=== PATIENT | female | born 1960 ===

== ENCOUNTER 2021-01-04 09:47 | Outpatient (REF) | payer BC, SELFPAY ==
--- NOTE | ~2021-01-04 | XR_ITS ---
EXAMINATION: CHEST AND SINUS EXAM CLINICAL INFORMATION: Difficulty breathing COMPARISON: None TECHNIQUE: Sinuses 4 views. Chest 2 views. FINDINGS: CHEST: The lungs are well-expanded and clear of acute process. Heart size and pulmonary vascularity is normal. There is mildly was scoliosis of dorsal spine. No lytic process. SINUSES: There is mild mucoperiosteal thickening bilateral maxillary and complete opacification of bilateral frontal sinuses. Rest of the paranasal sinuses are well aerated and clear. The mastoid sinuses are well-expanded expanded and clear. XR/XR sinus min 3V IMPRESSION: Unremarkable chest exam. Chronic bilateral maxillary and ethmoid sinus inflammatory changes.
--- NOTE | ~2021-01-04 | XR_ITS ---
EXAMINATION: CHEST AND SINUS EXAM CLINICAL INFORMATION: Difficulty breathing COMPARISON: None TECHNIQUE: Sinuses 4 views. Chest 2 views. FINDINGS: CHEST: The lungs are well-expanded and clear of acute process. Heart size and pulmonary vascularity is normal. There is mildly was scoliosis of dorsal spine. No lytic process. SINUSES: There is mild mucoperiosteal thickening bilateral maxillary and complete opacification of bilateral frontal sinuses. Rest of the paranasal sinuses are well aerated and clear. The mastoid sinuses are well-expanded expanded and clear. XR/XR chest 2V IMPRESSION: Unremarkable chest exam. Chronic bilateral maxillary and ethmoid sinus inflammatory changes.
== END 2021-01-04 09:48 | disposition home or self-care (01) ==
LOC: HO.HMGCX 09:47
PROVIDERS: PCP Internal Medicine; Visit Provider Internal Medicine
DX: R05 Cough (principal); R51.9 Headache, unspecified; U07.1 COVID-19
CPT/HCPCS: 70220; 71046

== ENCOUNTER 2021-02-13 09:47 | Outpatient (REF) | payer BC, SELFPAY ==
[2021-02-13 11:16] LABS: Glucose Urine UA NEG (NEG); Leukocyte Esterase Urine NEG (NEG); Nitrite Urine NEG (NEG); PH 6.5 (5.0-8.0); Urine Blood 1+ (NEG); Urine Ketones NEG (NEG); Urine Protein NEG (NEG-TRACE)
[2021-02-13 11:18] LABS: Appearance Urine CLEAR; Color Urine YELLOW
[2021-02-13 11:31] LABS: RBC Urine 0-2 /HPF (0); Squamous Epithelial Cell Urine TRACE /LPF; WBC Urine 0 /HPF (0-4)
[2021-02-13 11:35] LABS: Hematocrit 42.4 % (37-47); Hemoglobin 13.4 g/dl (12.0-16.0); Mean Corpuscular HGB Conc 31.6 g/dl (31.0-35.0); Mean Corpuscular Hemoglobin 29.1 pg (27.0-33.0); Mean Corpuscular Volume 92.2 fL (80-98); Mean Platelet Volume 9.7 fL (9.4-12.3); Platelet Count 279 X10*3/uL (160-400); Red Cell Distribution Width 13.3 % (11.0-16.0); White Blood Count 6.6 X10*3/uL (4.8-10.8)
[2021-02-13 12:06] LABS: Alanine Aminotransferase 14 U/L (0-31); Albumin Level 4.3 g/dL (3.5-5.0); Alkaline Phosphatase 77 U/L (39-117); Anion Gap 14 (12-20); Aspartate Amino Transferase 18 U/L (5-31); Bilirubin Total 0.6 mg/dL (0.0-1.0); Blood Urea Nitrogen 9 mg/dL (9-16); Calcium 9.3 mg/dL (8.4-10.2); Carbon Dioxide 28 mmol/L (22-29); Chloride 104 mmol/L (96-108); Cholesterol 197 mg/dL; Estimated Glomerular Filt Rate > 60; Glucose Fasting 92 mg/dL (60-99); HDL Cholesterol 73 mg/dL; LDL Cholesterol Calculated 87 mg/dl; Potassium 3.9 mmol/L (3.3-5.1); Sodium 142 mmol/L (135-145); Total Protein 7.2 g/dL (6.5-8.0); Triglycerides 189 mg/dL
[2021-02-13 12:30] LABS: TSH reflex Free T4 0.07 uIU/mL (0.32-4.0); Vitamin D 25-OH Total 34.2 ng/mL (>30)
[2021-02-13 13:08] LABS: Free T4 (Free Thyroxine) 1.38 ng/dL (0.71-1.85)
== END 2021-02-13 09:48 | disposition home or self-care (01) ==
LOC: HO.HMGCLDS 09:47
PROVIDERS: PCP Internal Medicine; Visit Provider Internal Medicine
DX: Z00.00 Encounter for general adult medical examination without abnormal findings (principal); J45.909 Unspecified asthma, uncomplicated; M06.9 Rheumatoid arthritis, unspecified
CPT/HCPCS: 36415; 80053; 80061; 81001; 82306; 84439; 84443; 85027

== ENCOUNTER 2021-10-08 14:20 | Outpatient (REF) | payer BC, SELFPAY ==
--- NOTE | ~2021-10-08 | US_ITS ---
EXAMINATION: US VENOUS ULTRASOUND WITH DOPPLER LOWER EXTREMITY, LEFT CLINICAL INFORMATION: Swelling of left lower extremity. COMPARISON: None TECHNIQUE: Ultrasound of the deep veins is performed from the hip to the calf with compression sonography and color and pulse Doppler assessment. Spectral analysis with color-flow imaging is performed. FINDINGS: There is normal venous compression and respiratory variation and augmented flow. The visualized common femoral vein, superficial femoral vein, profunda femoral vein, popliteal vein, and the trifurcation region shows no evidence of deep venous thrombosis. There is no significant popliteal fossa cyst. Corresponding to the site of pain, burning sensation involving the anterior, lateral proximal left calf, no underlying sonographic abnormalities identified. If the patient's symptoms persist, followup ultrasound in 5 days 7 days might be of value to exclude proximal propagation from a non-visualized calf vein. US/US venous duplex LE IMPRESSION: No DVT demonstrated in the left lower extremity.
== END 2021-10-08 14:21 | disposition home or self-care (01) ==
LOC: HO.HMGCX 14:20
PROVIDERS: PCP Internal Medicine; Visit Provider Internal Medicine
DX: M79.89 Other specified soft tissue disorders (principal)
CPT/HCPCS: 93971

== ENCOUNTER → 2022-01-06 09:52 | Outpatient (BNVA) | payer BC, SELFPAY | PROVIDERS: PCP Internal Medicine; Referring Provider Internal Medicine; Visit Provider Physician Assistant | DX: Z13.89 Encounter for screening for other disorder (principal) ==

== ENCOUNTER 2022-02-10 09:22 | Outpatient (REF) | payer BC, SELFPAY ==
[2022-02-10 11:21] LABS: Hematocrit 41.8 % (37.0-47.0); Hemoglobin 13.4 g/dl (12.0-16.0); Mean Corpuscular HGB Conc 32.1 g/dl (31.0-35.0); Mean Corpuscular Hemoglobin 30.2 pg (27.0-33.0); Mean Corpuscular Volume 94.1 fL (80.0-98.0); Mean Platelet Volume 9.7 fL (9.4-12.3); Platelet Count 236 X10*3/uL (160-400); Red Blood Count 4.44 X10*6/uL (4.20-5.50); Red Cell Distribution Width 13.3 % (11.0-16.0); White Blood Count 5.6 X10*3/uL (4.8-10.8)
[2022-02-10 11:21] LABS: Appearance Urine HAZY; Color Urine YELLOW; Glucose Urine UA NEG (NEG); Leukocyte Esterase Urine TRACE (NEG); Nitrite Urine NEG (NEG); PH 6.5 (5.0-8.0); Specific Gravity - Urine 1.015 (1.005-1.025); Urine Blood 2+ (NEG); Urine Ketones NEG (NEG); Urine Protein NEG (NEG-TRACE)
[2022-02-10 11:39] LABS: Renal Epithelial Cells Urine 1+ /LPF; Squamous Epithelial Cell Urine 1+ /LPF; WBC Urine 0-2 /HPF (0-4)
[2022-02-10 11:57] LABS: Alanine Aminotransferase 27 U/L (0-31); Alkaline Phosphatase 73 U/L (39-117); Anion Gap 11 (12-20); Aspartate Amino Transferase 24 U/L (5-31); Bilirubin Total 0.5 mg/dL (0.0-1.0); Blood Urea Nitrogen 12 mg/dL (9-16); Calcium 9.3 mg/dL (8.4-10.2); Carbon Dioxide 28 mmol/L (22-29); Chloride 106 mmol/L (96-108); Cholesterol 172 mg/dL; Estimated Glomerular Filt Rate > 60; Glucose Fasting 90 mg/dL (60-99); HDL Cholesterol 75 mg/dL; LDL Cholesterol Calculated 83 mg/dl; Potassium 4.2 mmol/L (3.3-5.1); Sodium 141 mmol/L (135-145); Total Protein 6.6 g/dL (6.5-8.0); Triglycerides 70 mg/dL
[2022-02-10 12:00] LABS: TSH reflex Free T4 0.03 uIU/mL (0.32-4.0)
[2022-02-10 13:10] LABS: Free T4 (Free Thyroxine) 1.51 ng/dL (0.71-1.85)
== END 2022-02-10 09:23 | disposition home or self-care (01) ==
LOC: HO.HMGCLDS 09:22
PROVIDERS: PCP Internal Medicine; Visit Provider Internal Medicine
DX: Z00.00 Encounter for general adult medical examination without abnormal findings (principal); E03.9 Hypothyroidism, unspecified; E78.5 Hyperlipidemia, unspecified
CPT/HCPCS: 36415; 80053; 80061; 81001; 82306; 84439; 84443; 85027

== ENCOUNTER 2022-04-29 09:02 | Outpatient (REF) | payer OTHER, SELFPAY ==
[2022-04-29 11:52] LABS: Appearance Urine CLEAR; Color Urine YELLOW; Glucose Urine UA NEG (NEG); Leukocyte Esterase Urine 2+ (NEG); Nitrite Urine NEG (NEG); Urine Blood 1+ (NEG); Urine Ketones NEG (NEG); Urine Protein NEG (NEG-TRACE)
[2022-04-29 12:21] LABS: Bacteria Urine 1+ /LPF; Squamous Epithelial Cell Urine TRACE /LPF
[2022-04-29 12:22] LABS: TSH reflex Free T4 0.25 uIU/mL (0.32-4.0)
[2022-04-29 13:27] LABS: Free T4 (Free Thyroxine) 1.23 ng/dL (0.71-1.85)
== END 2022-04-29 09:03 | disposition home or self-care (01) ==
LOC: HO.HMGCLDS 09:02
PROVIDERS: PCP Internal Medicine; Visit Provider Internal Medicine
DX: E03.9 Hypothyroidism, unspecified (principal)
CPT/HCPCS: 36415; 81001; 84439; 84443

== ENCOUNTER 2022-07-29 12:07 | Observation (INO) | payer OTHER, SELFPAY ==
--- NOTE | ~2022-07-29 | US_ITS ---
EXAMINATION: US VENOUS ULTRASOUND WITH DOPPLER LOWER EXTREMITY, LEFT CLINICAL INFORMATION: Swelling and pain. Rule out DVT. COMPARISON: Left lower extremity venous ultrasound 10/08/2021 TECHNIQUE: Ultrasound of the deep veins is performed from the hip to the calf with compression sonography and color and pulse Doppler assessment. Spectral analysis with color-flow imaging is performed. FINDINGS: There is normal venous compression and respiratory variation and augmented flow. The visualized common femoral vein, superficial femoral vein, profunda femoral vein, popliteal vein, and the trifurcation region shows no evidence of deep venous thrombosis. There is no significant popliteal fossa cyst. If the patient's symptoms persist, followup ultrasound in 5 days 7 days might be of value to exclude proximal propagation from a non-visualized calf vein. US/US venous duplex LE IMPRESSION: No DVT demonstrated in the left lower extremity.
--- NOTE | ~2022-07-29 | CT_ITS ---
EXAMINATION: CT ANGIOGRAM OF THE CHEST WITH AND WITHOUT CONTRAST (CT PULMONARY ANGIOGRAM FOR PE) CLINICAL INFORMATION: Reason for Exam Chest pain, SOB, DANIEL, LLE swelling, rule out PE COMPARISON: Chest x-ray from earlier today TECHNIQUE: Prior to contrast administration, noncontrast localization images were obtained. Subsequently, multidetector volumetric imaging was performed from the thoracic inlet to below the diaphragms following the administration of 75 mL Omnipaque 350 intravenous contrast. No contrast reaction reported Sagittal, coronal, and MIP oblique sagittal reformatted images were obtained on the CT workstation, uploaded to PACS, and reviewed. This CT examination was performed using dose optimization techniques as appropriate, variously including the following: *Automated exposure control *Adjustment of mA and/or kV according to patient size (this includes techniques or standardized protocols for targeted exams where dose is matched to indication/reason for exam; i.e. extremities or head) *Use of iterative reconstruction technique Total exam dose-length product 183 mGy-cm FINDINGS: QUALITY OF STUDY/CONTRAST BOLUS: Satisfactory. PULMONARY ARTERIES: No central or segmental pulmonary emboli. THORACIC AORTA: No aneurysm or dissection. LUNG: There is dependent atelectasis in the bilateral lower lobes. No additional region of consolidation. There is a 3 mm right upper lobe nodule on image 91/513 laterally. PLEURA: No pleural effusion or pneumothorax. MEDIASTINUM: Patient appears to be status post thyroidectomy. There are subcentimeter mediastinal lymph nodes within the range of normal variation. Cardiac size is within normal limits; no pericardial effusion. No evidence of septal bowing or right heart strain. CHEST WALL/AXILLA: No axillary or internal mammary lymphadenopathy. OSSEOUS STRUCTURES: No acute or suspicious osseous abnormality. UPPER ABDOMEN: Unremarkable. No reflux of contrast into the hepatic veins to suggest elevated right heart pressures. CT/CT angio chest PE protocol IMPRESSION: 1. No pulmonary embolus identified. 2. Right upper lobe 3 mm lung nodule. According to the UPDATED 2017 Fleischner Society recommendations, the advised follow-up imaging for solid nodules < 6 mm is: LOW RISK PATIENT: No routine follow-up. HIGH RISK PATIENT: Optional CT at 12 months. VTE: negative
--- NOTE | ~2022-07-29 | NM_ITS ---
Lexiscan Myocardial perfusion study Indication: Chest pain, assess for coronary disease and ischemia Technique: The patient was brought in for a Lexiscan perfusion study on 07/30/2022 and was injected 0.4 mg of Lexiscan intravenously. Within a minute of this injection 25 mCi of sestamibi was given intravenously. Images were obtained using the SPECT gamma camera interlaced with the gating device. Images were obtained in supine position. Resting perfusion study was performed on 07/29/2022. Patient was administered 25 mCi of sestamibi intravenously at rest. Images were then obtained in supine position. Total DLP 68mGy-cm. Images were processed with the software and compared side to side in short axis, horizontal long axis and vertical long axis views. Findings: Raw acquisition reviewed. The stress perfusion study showed no significant perfusion abnormality. Both uncorrected as well as CT attenuation corrected images were reviewed. The gated study shows normal LV systolic function with calculated LVEF of 57%. LV cavity is normal in size. The gated study shows normal wall thickening and contraction of segments. Resting study shows no significant perfusion abnormality. Gating at rest reveals normal wall motion with ejection fraction at 75%. The findings are consistent with no clear reversible or fixed perfusion defects. NM/NM milo perf SPECT rest & str Impression: 1. Myocardial perfusion imaging study shows likely normal myocardial perfusion. No clear evidence of any ischemia or infarction. 2. Gated LVEF is 57% during stress and 74% during rest. 3. Transient ischemic dilatation not present. EKG component of the test reported separately.
--- NOTE | ~2022-07-29 | XR_ITS ---
EXAMINATION: XR CHEST CLINICAL INFORMATION: Shortness of breath COMPARISON: Chest x-ray 01/04/2021 TECHNIQUE: Frontal view of the chest was obtained. FINDINGS: The lungs are clear. No airspace consolidation, pleural effusion, or pneumothorax. The cardiomediastinal silhouette is within normal limits. Slight prominence of the pulmonary vascularity. No evidence of pulmonary edema. No acute osseous injury. Multiple surgical clips project over the lower neck. XR/XR chest 1V IMPRESSION: No acute pulmonary process.
[2022-07-29 12:26] VITALS: BP 131/59; PULSE 103; RESP 16; TEMP 36.6; O2SAT 97; BMI 19.8
--- NOTE | 2022-07-29 12:32 | ECG_ITS ---
Test Reason : SOB Blood Pressure : / mmHG Vent. Rate : 080 BPM Atrial Rate : 080 BPM P-R Int : 148 ms QRS Dur : 088 ms QT Int : 386 ms P-R-T Axes : 061 051 060 degrees QTc Int : 445 ms Normal sinus rhythm Normal ECG No previous ECGs available Referred By: Gita Trinidad Electronically Signed By:CARLITOS JANE
[2022-07-29 12:57] LABS: MANUAL DIFF FLAG NO
[2022-07-29 13:02] LABS: Basophils Percent Auto 0.5 % (0-2); Eosinophils Absolute Auto 0.4 X10*3/uL (0.0-0.4); Eosinophils Percent Auto 6.9 % (0-4); Hematocrit 41.5 % (37.0-47.0); Hemoglobin 13.4 g/dl (12.0-16.0); Imm Gran Abs Auto 0.02 X10*3/uL (0.00-0.03); Imm Gran Pct Auto 0.3 % (0.0-0.4); Lymphocytes Absolute Auto 1.7 X10*3/uL (1.2-4.9); Lymphocytes Percent Auto 27.2 % (20-40); Mean Corpuscular HGB Conc 32.3 g/dl (31.0-35.0); Mean Corpuscular Hemoglobin 29.9 pg (27.0-33.0); Mean Corpuscular Volume 92.6 fL (80.0-98.0); Mean Platelet Volume 9.1 fL (9.4-12.3); Monocytes Absolute Auto 0.7 X10*3/uL (0.1-1.2); Monocytes Percent Auto 11.2 % (2-11); Neutrophils Absolute Auto 3.4 x10*3/uL (2.0-8.3); Neutrophils Percent Auto 53.9 % (45-73); Platelet Count 227 X10*3/uL (160-400); Red Blood Count 4.48 X10*6/uL (4.20-5.50); Red Cell Distribution Width 13.6 % (11.0-16.0); White Blood Count 6.3 X10*3/uL (4.8-10.8)
[2022-07-29 13:18] LABS: Anion Gap 13 (12-20); Blood Urea Nitrogen 11 mg/dL (9-16); Calcium 9.6 mg/dL (8.4-10.2); Carbon Dioxide 28 mmol/L (22-29); Chloride 107 mmol/L (96-108); Creatinine Clr Calc Pharmacy 81.9; Estimated Glomerular Filt Rate > 60; Glucose Random 105 mg/dL (60-115); Sodium 144 mmol/L (135-145)
--- OUTSIDE RECORDS SUMMARY | 2022-07-29 21:05 | XMS_ITS | Continuity of Care Document ---
:1960 Author Organization [facility] Address [address] [place] [address]- Care Team Providers Name Role Phone Tiffanie Hernandez MD [id number] [address] Discharge Disposition: A-Transfer VNA/Home Health Attending Physician: Jose Alfredo Osorio MD Admitting Physician: Radha Pepper MD Referring Physician: Not on Staff, Referring MD Allergies, Adverse Reactions, Alerts Substance Reaction Severity Status aspirin anaphylaxis Active Motrin anaphylaxis Active Advil anaphylaxis Active NSAIDs Active Immunizations Not Given Vaccine Date Status Refusal Reason pneumococcal 23-valent vaccine 11/27/20 Not Given P atient Refuses pneumococcal 23-valent vaccine 05/15/19 Not Given P atient Refuses pneumococcal 23-valent vaccine 04/14/16 Not Given P atient Refuses Medications alendronate 70 mg oral tablet 1 tablet = 70 mg, By Mouth, Every week, # 4 tablet, 0 Refills, Maintenance, 06/05/20 22:34:00 EDT, Tablet Start Date: 06/05/20 Status: OrderedCitracal Maximum + Vitamin D Tablet 2 tablet, By Mouth, Daily in AM, 0 Refills, Maintenance, 03/17/13 16:42:43 EDT Start Date: 03/17/13 Status: Ordereddexamethasone 4 mg oral tablet 1.5 tablet = 6 mg, By Mouth, Daily in AM, for 5 days, # 7.5 tablet, 0 Refills, Acute 12/05/20 11:20:00 EST, 11/30/20 11:20:00 EST, Tablet, [facility]/pharmacy #[id number], Partial fill upon patient request if the prescription is for a schedule II opioid drug., 163... Start Date: 11/30/20 Stop Date: 12/05/20 Status: OrderedDulera 200 mcg-5 mcg/inh inhalation aerosol 2 puffs, Inhalation, 2 times a day, 0 Refills, Maintenance, 04/14/16 10:10:36, Aerosol Start Date: 04/14/16 Status: Orderedfluticasone 50 mcg/inh nasal spray 1 sprays, Nares, Both, Daily in AM, 0 Refills, Maintenance, 06/06/20 5:46:00 EDT, [place] Start Date: 06/06/20 Status: Orderedfolic acid 1 mg oral tablet 1 mg, 1, tablet, By Mouth, Daily, # 30 tablet, Refills 0, Maintenance, 06/05/20 22:33:00 EDT Start Date: 06/05/20 Status: OrderedHumira Pen 40 mg/0.4 mL subcutaneous kit 0 Refills, Maintenance, 06/06/20 8:24:00 EDT Start Date: 06/06/20 Status: Orderedlevothyroxine 0.112 mg oral tablet 1 tablet = 112 mcg, By Mouth, Daily, # 90 tablet, 3 Refills, Maintenance, 12/15/17 9:41:20, Tablet Start Date: 12/15/17 Status: Orderedmethotrexate 2.5 mg oral tablet 1 tablet = 2.5 mg, By Mouth, Every week, # 4 tablet, 0 Refills, Maintenance, 05/14/19 22:06:36 EDT, Tablet Start Date: 05/14/19 Status: OrderedProAir HFA 90 mcg/inh inhalation aerosol with adapter 2 puffs, Inhalation, 4 times a day, PRN Wheezing/Shortness of Breath, 0 Refills, Maintenance, 12/29/12 8:41:54 Start Date: 12/29/12 Status: OrderedProtonix 40 mg oral delayed release tablet 1 tablet = 40 mg, By Mouth, Daily, # 30 tablet, 0 Refills, Maintenance, 06/06/20 13:23:00 EDT, EC Tablet, 162.56, cm, 06/06/20 11:10:00 EDT, Height, 54, kg, 06/06/20 5:22:00 EDT, Dry Weight Start Date: 06/06/20 Status: Orderedrosuvastatin 20 mg oral tablet 1 tablet = 20 mg, By Mouth, Every other day, 0 Refills, Maintenance, 05/14/19 22:04:55 EDT Start Date: 05/14/19 Status: Ordered Problem List Condition Effective Dates Status Health Status Informant Hx of papillary thyroid Active carcinoma(Confirmed) Nodular goiter(Confirmed) Active Results Radiology Reports Exam Date Time Procedure Performing Provider Status 11/26/20 1:10 PM Chest Portable Leda Hutchins; Brea (Verified) Notes:(Chest Portable) Reason For Exam: Shortness of BreathRESULT: Chest Portable Examination: Portable chest performed on 11/26/2020. History: Recent COVID diagnosis. Increased shortness of breath. Findings: A frontal view of the chest is compared to a prior study dated 06/06/2020. The cardiac silhouette is within normal limits for size. Bilateral airspace opacities are noted, right lower lobe greater than left. No pleural effusions are seen. The osseous structures are intact. IMPRESSION: Bilateral airspace opacities consistent with infection, likely related to atypical viral given the clinical history. WSN: [id number] Ordering Physician: Niki Cisse Dictated By: Michelle Guevara MD Dictated Date/Time: 11/26/20 1:14 pm Reviewed By: Michelle Guevara MD Signed By: Michelle Guevara MD Signed Date/Time: 11/26/20 1:14 pm Transcribed By: KIARA Transcribed Date/Time: 11/26/20 1:12 pm Vital Signs Most recent to oldest [Reference 1 2 3 Range]: Height 163 cm 163 cm 163 cm (11/30/20 7:00 AM) (11/30/20 4:57 AM) (11/30/20 12:35 AM) Weight 51.4 kg (11/26/20 5:30 PM) Oxygen Saturation [94-100 %] 97 % 96 % 96 % (11/30/20 7:00 AM) (11/30/20 12:35 AM) (11/29/20 8:08 PM) Pulse Rate [55-90 bpm] 76 bpm 68 bpm 67 bpm (11/30/20 7:00 AM) (11/30/20 4:00 AM) (11/30/20 12:35 AM) Body Mass Index [18.5-24.99] 19.35 (11/26/20 5:30 PM) Blood Pressure [90-138/55-84 mm 106/66 mm Hg 136/69 mm Hg 107/57 mm Hg Hg] (11/30/20 7:00 AM) (11/30/20 4:00 AM) (11/30/20 12:35 AM) Respiratory Rate [16-30 br/min] 19 br/min 18 br/min 18 br/min (11/30/20 7:00 AM) (11/30/20 4:00 AM) (11/30/20 12:35 AM) Temperature [96.8-100.4 DegF] 97.7 DegF 97.5 DegF 97 .5 DegF (11/30/20 7:00 AM) (11/30/20 4:00 AM) (11/30/20 12:35 AM) Liters per Minute 4 L/min 4 L/min 4 L/min (11/30/20 4:00 AM) (11/30/20 12:00 AM) (11/29/20 8:00 PM) Mode of Delivery (Oxygen) Room air Nasal cannula Nasal cannula (11/30/20 7:00 AM) (11/30/20 4:00 AM) (11/30/20 12:00 AM) Blood pressure sites Arm, right Arm, right Arm, right (11/30/20 7:00 AM) (11/30/20 4:00 AM) (11/30/20 12:35 AM) Temperature Route Oral Oral Oral (11/30/20 7:00 AM) (11/30/20 4:00 AM) (11/30/20 12:35 AM) Dry Weight 51.4 kg (11/26/20 5:30 PM)
--- OUTSIDE RECORDS SUMMARY | 2022-07-29 21:05 | XMS_ITS | Continuity of Care Document ---
:1960 Author Organization [facility] Address [address] [place] [address]- Care Team Providers Name Role Phone Tiffanie Hernandez MD Primary Care Physician Encounter [facility] Date(s): 11/13/19 - 11/23/19 [facility] [address] [place] [address]- [facility] Attending Physician: Mario Melvin Admitting Physician: Mario Melvin Referring Physician: Mario Melvin Referring Physician: Nasrin Hassan Allergies, Adverse Reactions, Alerts Substance Reaction Severity Status aspirin anaphylaxis Active Motrin anaphylaxis Active Advil anaphylaxis Active Immunizations Not Given Vaccine Date Status Refusal Reason pneumococcal 23-valent vaccine 05/15/19 Not Given P atient Refuses pneumococcal 23-valent vaccine 04/14/16 Not Given P atient Refuses Medications [place]-D 1 tablet, By Mouth, Daily, 0 Refills, Maintenance Start Date: 01/28/13 Status: OrderedCitracal Maximum + Vitamin D Tablet 2 tablet, By Mouth, Daily in AM, 0 Refills, Maintenance, 03/17/13 16:42:43 EDT Start Date: 03/17/13 Status: OrderedDulera 200 mcg-5 mcg/inh inhalation aerosol 2 puffs, Inhalation, 2 times a day, 0 Refills, Maintenance, 04/14/16 10:10:36, Aerosol Start Date: 04/14/16 Status: OrderedHumira = 40 mg, Subcutaneous Infusion, Once, 0 Refills, Maintenance, 05/14/19 22:06:12 EDT Start Date: 05/14/19 Status: Orderedlevothyroxine 0.112 mg oral tablet 1 tablet = 112 mcg, By Mouth, Daily, # 90 tablet, 3 Refills, Maintenance, 12/15/17 9:41:20, Tablet Start Date: 12/15/17 Status: Orderedmethotrexate 2.5 mg oral tablet 1 tablet = 2.5 mg, By Mouth, Every week, # 4 tablet, 0 Refills, Maintenance, 05/14/19 22:06:36 EDT, Tablet Start Date: 05/14/19 Status: OrderedNasonex 50 mcg/inh nasal spray 2 sprays, Nares, Both, 2 times a day, PRN for allergy symptoms, # 17 Gm, 0 Refills, Maintenance, [place] Start Date: 02/22/13 Status: OrderedProAir HFA 90 mcg/inh inhalation aerosol with adapter 2 puffs, Inhalation, 4 times a day, PRN Wheezing/Shortness of Breath, 0 Refills, Maintenance, 12/29/12 8:41:54 Start Date: 12/29/12 Status: Orderedrosuvastatin 20 mg oral tablet 1 tablet = 20 mg, By Mouth, Every other day, 0 Refills, Maintenance, 05/14/19 22:04:55 EDT Start Date: 05/14/19 Status: OrderedZithromax Z-Eliazar 250 mg oral tablet 1 pack/packet, By Mouth, Once, as directed on package labeling, # 6 tablet, 0 Refills, Soft Stop, 10/04/17 11:47:26, Tablet Start Date: 10/04/17 Status: Ordered Problem List Condition Effective Dates Status Health Status Informant Hx of papillary thyroid Active carcinoma(Confirmed) Nodular goiter(Confirmed) Active
--- OUTSIDE RECORDS SUMMARY | 2022-07-29 21:05 | XMS_ITS | Continuity of Care Document ---
:1960 Author Organization [facility] Address [address] [place] [phone]- Care Team Providers Name Role Phone Tiffanie Hernandez MD Primary Care Physician Encounter [facility] R [id number] Date(s): 06/05/20 - 06/06/[address] [address]- [facility] Encounter Diagnosis ACS (acute coronary syndrome) (Final) - 06/06/20 Discharge Disposition: A-D/C Home Attending Physician: Belinda Smith MD Admitting Physician: Luis Johnson MD Referring Physician: Not on Staff, Referring [...] AM, 0 Refills, Maintenance, 06/06/20 5:46:00 EDT, [place] Start Date: 06/06/20 Status: Orderedfolic acid 1 [...] Exam Date Time Procedure Performing Provider Status 06/06/20 12:45 AM Chest 2 Views Frontal and Lat Morelia Kincaid; Auth (Verified) Notes:(Chest 2 Views Frontal and Lat) Reason For Exam: Chest Pain;Other:RESULT: Chest 2 Views Frontal and Lat Chest 2 Views Frontal and Lat HPI: Chest pain x 30 min- reports pain and pressure, also has had SOB x 2 days- has asthma. INDICATION: Chest Pain. COMPARISON: Multiple chest radiographs, most recent 05/15/2019. FINDINGS: LINES AND TUBES: None. LUNGS AND PLEURA: Mild left basilar atelectasis. Normal pulmonary vascularity. No pleural effusion. No pneumothorax. HEART, MEDIASTINUM AND PATRICIA: Heart is normal in size. Normal mediastinal and hilar contour. BONES AND SOFT TISSUES: No acute abnormality. IMPRESSION: No acute abnormality. I have personally reviewed the images and I agree with this report. WSN: [id number] Ordering Physician: Wolfgang Quinn MD Dictated By: Erick Moore MD Dictated Date/Time: 06/06/20 8:21 am Reviewed By: Jalen Sanchez MD Signed By: Jalen Sanchez MD Signed Date/Time: 06/06/20 8:26 am Transcribed By: KIARA Transcribed Date/Time: 06/06/20 8:12 am Vital Signs Most recent to oldest 1 2 3 [Reference Range]: Height 162.56 cm 162.56 cm 162.56 cm (06/06/20 11:10 AM) (06/06/20 7:54 AM) (06/06/20 5: 22 AM) Weight 54 kg 53.5 kg 54 kg (06/06/20 5:22 AM) (06/06/20 5:20 AM) (06/06/20 4:1 6 AM) Oxygen Saturation [94-100 96 % 96 % 95 % %] (06/06/20 11:10 AM) (06/06/20 7:54 AM) (06/06/20 5: 20 AM) Pulse Rate [55-90 bpm] 70 bpm 72 bpm 74 bpm (06/06/20 11:10 AM) (06/06/20 7:54 AM) (06/06/20 5: 20 AM) Body Mass Index 20.43 20.25 20.43 [18.5-24.99] (06/06/20 5:22 AM) (06/06/20 5:20 AM) (06/06/20 4:1 6 AM) Blood Pressure 117/70 mm Hg 106/70 mm Hg 113/65 mm Hg [90-138/55-84 mm Hg] (06/06/20 11:10 AM) (06/06/20 7:54 AM) ( 5:20 AM) Respiratory Rate [16-30 16 br/min 18 br/min 16 br/mi n br/min] (06/06/20 11:10 AM) (06/06/20 10:02 AM) (06/06/20 7 :54 AM) Temperature [96.8-100.4 97.8 DegF 98.1 DegF 98.4 Deg F DegF] (06/06/20 11:10 AM) (06/06/20 7:54 AM) (06/06/20 5: 20 AM) Mode of Delivery (Oxygen) Room air Room air Room a ir (06/06/20 11:10 AM) (06/06/20 7:54 AM) (06/06/20 5: 20 AM) Blood pressure sites Arm, right Arm, right Arm, right (06/06/20 11:10 AM) (06/06/20 7:54 AM) (06/06/20 5: 20 AM) Temperature Route Oral Oral Oral (06/06/20 11:10 AM) (06/06/20 7:54 AM) (06/06/20 5: 20 AM) Dry Weight 54 kg 54 kg 54 kg (06/06/20 5:22 AM) (06/06/20 4:16 AM) (06/06/20 1:3 6 AM) Weight Obtained Via Patient/family stated Bed scale Patien t/family stated (06/06/20 5:22 AM) (06/06/20 5:20 AM) (06/06/20 12: 01 AM) Dry Weight Obtained Via Standing scale (06/06/20 12:01 AM)
--- OUTSIDE RECORDS SUMMARY | 2022-07-29 21:05 | XMS_ITS | Continuity of Care Document ---
:1960 Author Organization [facility] Address [address] [place] [address]- Care Team Providers Name Role Phone David RAMAN, Tiffanie Primary Care Physician [place] [facility] [place]15/19 - 11/22/[address] [address]- [facility] Attending Physician: Gerardo RAMAN, Jose Garvey Jr Allergies, Adverse Reactions, Alerts Substance Reaction Severity [...] symptoms, # 17 Gm, 0 Refills, Maintenance, [place] Start Date: 02/22/13 Status: OrderedProAir HFA 90 [...]
--- OUTSIDE RECORDS SUMMARY | 2022-07-29 21:05 | XMS_ITS | Continuity of Care Document ---
:1960 Author Organization [facility] Address [address] [place] [address]- Care Team Providers Name Role Phone Tiffanie Hernandez MD Primary Care Physician Encounter [facility] Date(s): 11/29/20 - 12/29/[address] [address]- Attending Physician: Not on Staff, Attending MD Admitting Physician: Not on Staff, Admitting MD Referring Physician: Not on Staff, Referring [...] AM, 0 Refills, Maintenance, 06/06/20 5:46:00 EDT, [place] Start Date: 06/06/20 Status: Orderedfolic acid 1 [...]
--- OUTSIDE RECORDS SUMMARY | 2022-07-29 21:05 | XMS_ITS | Continuity of Care Document ---
:1960 Author Organization [facility] Address [address] [place] [address]- Care Team Providers Name Role Phone David RAMAN, Tiffanie Primary Care Physician Encounter [facility] Date(s): 11/13/19 - 11/20/19 [facility] [address] [place] [address]- [facility] Attending Physician: Rosaura Kohli MD Referring Physician: Desire Foster Allergies, Adverse Reactions, Alerts Substance Reaction Severity [...] symptoms, # 17 Gm, 0 Refills, Maintenance, [place] Start Date: 02/22/13 Status: OrderedProAir HFA 90 [...] papillary thyroid Active carcinoma(Confirmed) Nodular goiter(Confirmed) Active Vital Signs Most recent to oldest [Reference Range]: 1 Height 163 cm (11/13/19 11:04 AM) Weight 55.4 kg (11/13/19 11:04 AM) Oxygen Saturation [94-100 %] 96 % (11/13/19 11:04 AM) Pulse Rate [55-90 bpm] 80 bpm (11/13/19 11:04 AM) Body Mass Index [18.5-24.99] 20.85 (11/13/19 11:04 AM) Blood Pressure [90-138/55-84 mm Hg] 136/66 mm Hg (11/13/19 11:04 AM) Respiratory Rate [16-30 br/min] 18 br/min (11/13/19 11:04 AM) Temperature [96.8-100.4 DegF] 97.8 DegF (1/19/20 11:04 AM) Mode of Delivery (Oxygen) Room air (11/13/19 11:04 AM) Blood pressure sites Arm, left (11/13/19 11:04 AM) Temperature Route Oral (11/13/19 11:04 AM) Dry Weight 55.4 kg (11/13/19 11:04 AM) Weight Obtained Via Standing scale (11/13/19 11:04 AM) Dry Weight Obtained Via Standing scale (11/13/19 11:04 AM)
--- OUTSIDE RECORDS SUMMARY | 2022-07-29 21:05 | XMS_ITS | Continuity of Care Document ---
:1960 Author Organization [facility] Address [address] [place] [address]- Care Team Providers Name Role Phone Tiffanie Hernandez MD Primary Care Physician Encounter 12/01/20 - 12/24/20 [facility] [address] [place] [id number] Discharge Disposition: GOALS MET Allergies, Adverse Reactions, Alerts Substance Reaction Severity [...] AM, 0 Refills, Maintenance, 06/06/20 5:46:00 EDT, [place] Start Date: 06/06/20 Status: Orderedfolic acid 1 [...]
--- NOTE | 2022-07-29 21:30 | ECG_ITS ---
Test Reason : REPEAT Blood Pressure : / mmHG Vent. Rate : 074 BPM Atrial Rate : 074 BPM P-R Int : 158 ms QRS Dur : 090 ms QT Int : 382 ms P-R-T Axes : 055 045 058 degrees QTc Int : 424 ms Normal sinus rhythm Normal ECG When compared with ECG of 29-JUL-2022 13:01, No significant change was found Referred By: Lj Hernandez Electronically Signed By:CARLITOS JANE
--- NOTE | 2022-07-29 21:50 | ED.SOB ---
HPI - SOB/Dyspnea General Chief Complaint: Dyspnea Stated Complaint: CHF or PE sent by walkin clinic Time Seen by Provider: 07/29/22 20:51 Source: patient Mode of arrival: ambulatory Limitations: no limitations History of Present Illness HPI Narrative: 61-year-old female who presents emergency department for evaluation of chest pain, shortness of breath and left leg swelling. The patient was seen at [facility] and referred to the emergency department to rule out pulmonary embolism versus congestive heart failure. Patient states she had COVID-19 infection 06/02/2022 (8 weeks prior to evaluation by home test). Patient received 3 COVID vaccinations and had a COVID infection 1 year prior requiring hospitalization. She states she was sick for approximately 1 week. She states however since having COVID-19, she has been having chest pain and shortness of breath. She states that she is not short of breath at rest but when she exerts herself she gets easily winded and she become short of breath. She also states that when she exerts herself she gets a pressure in her chest. She points to her mid sternum when asked to localize the pain, the pain does radiate to her back. She states that the pain is a heaviness the last approximately 2-3 minutes and then resolves if she rests. She states that she gets this pain and dyspnea with exertion daily and especially notices if she walks up stairs. She states that her last week her symptoms are got worse and that walking 10-20 feet she gets winded and her pulse gets elevated greater than 100. Patient states she has noticed intermittent swelling in her left lower extremity and this is been going on for 3-4 weeks as well. She denied fever, chills, rhinorrhea, sore throat, coughing. She states she has had some associated nausea but no vomiting or diarrhea. She denied abdominal pain, frequency urgency or dysuria. Related Data Home Medications Medication Instructions Recorded Confirmed alendronate 70 mg tablet 0 mg PO DIRECTED 01/04/21 06/03/22 ascorbate calcium (vitamin C) 500 1,000 mg PO DAILY 02/13/21 06/03/22 mg tablet cholecalciferol (vitamin D3) 25 25 mcg PO DAILY 02/13/21 06/03/22 mcg (1,000 unit) tablet folic acid 1 mg tablet 1 mg PO DAILY 02/13/21 06/03/22 methotrexate sodium 2.5 mg tablet 10 mg PO QWEEK 02/13/21 06/03/22 adalimumab 40 mg/0.4 mL See Rx Instructions subcut .COMPLEX 01/06/22 06/03/22 subcutaneous pen kit (Humira(CF) Pen) Previous Rx's Medication Instructions Recorded albuterol sulfate 90 mcg/actuation 2 puff inhalation Q4H PRN 01/17/21 aerosol inhaler (ProAir HFA) shortness of breath or wheezing #8.5 grams fluticasone propionate 50 2 spray intranasal DAILY #16 grams 02/12/21 mcg/actuation nasal spray,suspension valacyclovir 1 gram tablet 2,000 mg PO Q12H #4 tabs 02/13/21 (Valtrex) rosuvastatin 10 mg tablet (Crestor) 10 mg PO DAILY #90 tabs 12/30/21 bisacodyl 5 mg tablet,delayed 10 mg PO ONCE colonoscopy prep 1 01/06/22 release (Dulcolax (bisacodyl)) day #2 tabs polyethylene glycol 3350 17 238 g PO ONCE 1 day #238 grams 01/06/22 gram/dose oral powder (Miralax) montelukast 10 mg tablet 10 mg PO DAILY #90 tabs 01/16/22 levothyroxine 100 mcg tablet 100 mcg PO DAILY #90 tabs 02/27/22 azithromycin 250 mg tablet See Rx Instructions PO .COMPLEX #6 03/13/22 tabs nirmatrelvir 300 mg (150 mg See Rx Instructions PO .COMPLEX 06/03/22 x2)-ritonavir 100 mg tablet,dose #30 ea pack(EUA) (Paxlovid) Advair HFA 230 mcg-21 2 puff inhalation BID #36 grams 06/12/22 mcg/actuation aerosol inhaler (fluticasone propion-salmeterol) Allergies Allergy/AdvReac Type Severity Reaction Status Date / Time aspirin Allergy Intermediate SOB Verified 07/29/22 09:39 ibuprofen [Advil] Allergy Intermediate SOB Verified 07/29/22 09:39 levofloxacin [Levaquin] Allergy Unknown pt does Verified 07/29/22 09:39 not remember Review of Systems Review of Systems: Yes all other systems are reviewed and are negative [facility] Past Medical History [facility] Narrative: Social history: She denies tobacco use. She denies drug use. She occasionally drinks alcohol. Medical History Allergic rhinitis Annual physical exam Chronic asthma Cough COVID-19 COVID-19 vaccine series completed Headache Hyperlipidemia Osteoarthritis Osteoporosis Rheumatoid arthritis Rib pain on left side Sinusitis Swelling of lower extremity Tendinitis Thyroid nodule Surgical History H/O colonoscopy H/O: hysterectomy Family History Family History Mother No problems noted. Social History Social History Household Members: Spouse and Children Housing: House Are you a primary customer care specialist to a significant other at home: No Do you presently have visiting nurse or other home services: No Alcohol intake: never Patient Tobacco Use Status: Never used Tobacco e-Cigarette/Vaping Use: Never Used Second Hand Smoke Exposure: No Advance Directives: No Advance Directives Information Provided: No service: No Current occupational status: employed Cognitive needs: No Hearing needs: No Vision needs: Yes Physical Exam Vital Signs: Vital Signs: Last Vital Signs Temp 98 F 07/29/22 22:12 Pulse 77 07/30/22 01:29 Resp 18 07/30/22 01:29 BP 112/67 07/30/22 01:29 Pulse Ox 95 07/30/22 01:29 O2 Del Method 07/30/22 01:29 BMI result Body Mass Index 19.8 Const: General: cooperative and no acute distress Orientation/consciousness: oriented to person and oriented to place Limitations: no limitations HEENT: Head: Yes normal to inspection, Yes normocephalic and Yes atraumatic Ears: external ears normal General nose exam: Normal external nose present Face and sinus: Yes normal facial exam Mouth: Normal oral and palatal mucosa present Throat: Yes posterior oropharynx normal Eyes: General: appearance normal, both eyes and all related structures Pupils: Equal, round and reactive pupils present Neck: Neck: Yes normal visual inspection, Yes no lymphadenopathy, Yes trachea midline and Yes supple Chest: Chest palpation & inspection: normal inspection of the chest and normal palpation of entire chest wall Resp: Effort & Inspection: normal respiratory effort and able to speak in complete sentences Auscultation: clear to auscultation bilaterally Cardio: Rate: regular rate Rhythm: regular rhythm Heart sounds: S1 normal heart sound present, S2 normal heart sound present and no murmurs GI: Inspection: Yes normal to inspection Palpation (GI): Soft to palpation, nontender and no guarding Auscultation: normal bowel sounds : General: Yes no CVA tenderness Back/Spine/Pelvis: Back: no CVA tenderness Skin: General skin exam: no rashes or lesions noted Neuro: General: oriented to person and oriented to place Cranial nerves: Yes CN's II-XII intact bilaterally and Yes Equal, round and reactive pupils present Cognition (Neuro): normal cognition Motor exam (neuro): 5/5 motor strength present throughout Extrem: Other: Patient's left calf appears to be slightly larger than the right, there is trace pitting edema on the right leg with trace to 1+ pitting edema on the left leg, her extremities are neurovascular intact Psych: Appearance: grossly normal Speech and movement: Normal speech and movement present Affect: normal affect Attitude: cooperative Thought process: Normal thought process present Thought content: Normal thought content present Course Course Course Narrative: 61-year-old female who was referred to the emergency department from urgent care for evaluation of possible PE versus CHF. The patient tested positive for COVID-19 8 weeks prior to evaluation, she was vaccinated with 3 COVID-19 vaccines and was sick for approximately 1 week. She also has a COVID-19 infection 1 year prior requiring hospitalization. Patient complains chest pain with exertion and dyspnea on exertion which is getting progressively worse over the past week. She states she can only walk 10-20 feet before she gets winded and develops chest pain. She also states that her pulse usually is above [address] She has also noticed swelling of her left lower extremity over last 3-4 weeks. Vital signs revealed an elevated pulse of 103 otherwise were unremarkable . Physical examination did reveal asymmetric swelling of her left lower extremity compared to the right. 2157: Laboratory evaluation ordered from triage (1253 hours): CBC was normal. BMP was normal. I added a troponin and liver panel to the initial blood draw. I also ordered a D-dimer, PT/INR, PTT T, BNP, repeat troponin and lipase. Chest x-ray done from triage revealed no acute disease. I ordered CT pulmonary angiogram PE protocol, repeat EKG. 0016: Laboratory evaluation: CBC was normal. CMP revealed an elevated AST of 48. High sensitivity troponin I was below detectable limits. D-dimer was normal at 209. Radiology evaluation: Chest x-ray was unremarkable. CT pulmonary angiogram PE protocol revealed no pulmonary embolism and no significant abnormalities in the lungs, she does have a 3 mm nodule but she is at low risk for malignancy. Twelve EKG x2 was unremarkable. This time I do not have a clear etiology for the patient's dyspnea on exertion and chest pain with exertion. It is concerning that her symptoms have gotten worse over the past week. I will discuss the possibility of new onset angina with the covering washcloth folder and possible admission for further evaluation. 0113: I did discuss the patient with our washcloth folder, . He did agree that this could be new onset as an on and recommended the patient be admitted for further evaluation. He recommended against heparin at this point. The patient is allergic to aspirin which causes respiratory distress.. I will discuss admission with the covering hospitalist. 0136: I did discuss the case with the covering hospitalist, Dr. Segura and the patient will be admitted for further evaluation. MDM - SOB/Dyspnea Lab Data Attestation: I reviewed the patient's lab results. Result diagrams: 07/29/22 12:53 07/29/22 12:53 Labs: Lab Results 07/29/22 07/29/22 07/29/22 Range/Units 12:53 12:53 21:46 WBC 6.3 (4.8-10.8) X10*3/uL RBC 4.48 (4.20-5.50) X10*6/uL Hgb 13.4 (12.0-16.0) g/dl Hct 41.5 (37.0-47.0) % MCV 92.6 (80.0-98.0) fL MCH 29.9 (27.0-33.0) pg MCHC 32.3 (31.0-35.0) g/dl RDW 13.6 (11.0-16.0) % Plt Count 227 (160-400) X10*3/uL MPV 9.1 L (9.4-12.3) fL Immature Gran % (Auto) 0.3 (0.0-0.4) % Neut % (Auto) 53.9 (45-73) % Lymph % (Auto) 27.2 (20-40) % Kleberg % (Auto) 11.2 H (2-11) % Eos % (Auto) 6.9 H (0-4) % Baso % (Auto) 0.5 (0-2) % Lymph # (Auto) 1.7 (1.2-4.9) X10*3/uL Kleberg # (Auto) 0.7 (0.1-1.2) X10*3/uL Eos # (Auto) 0.4 (0.0-0.4) X10*3/uL Baso # (Auto) 0.0 (0.0-0.2) X10*3/uL Abs Immat Gran (auto) 0.02 (0.00-0.03) X10*3/uL Absolute Neuts (auto) 3.4 (2.0-8.3) x10*3/uL Absolute Nucleated RBC 0.000 (0.0-0.012) X10*3/uL Nucleated RBC % (auto) 0.0 (0.0-0.2) /100WBC PT (10.0-13.1) SEC INR (0.9-1.1) APTT (26.0-36.4) SEC D-Dimer High Sensitivty 209 NG/ML Sodium 144 (135-145) mmol/L Potassium 4.0 (3.3-5.1) mmol/L Chloride 107 (96-108) mmol/L Carbon Dioxide 28 (22-29) mmol/L Anion Gap 13 (12-20) BUN 11 (9-16) mg/dL Creatinine 0.63 (0.5-1.4) mg/dL Estim Creat Clear Calc 81.9 Estimated GFR > 60 Random Glucose 105 (60-115) mg/dL Calcium 9.6 (8.4-10.2) mg/dL Total Bilirubin (0.0-1.0) mg/dL Direct Bilirubin (0.0-0.5) mg/dL AST (5-31) U/L ALT (0-31) U/L Alkaline Phosphatase (39-117) U/L Troponin I High Sens (<3.5-17.0) ng/L B-Natriuretic Peptide (<100) pg/mL Total Protein (6.5-8.0) g/dL Albumin (3.5-5.0) g/dL Lipase (8-78) U/L 07/29/22 07/29/22 07/29/22 Range/Units 21:46 21:46 21:46 WBC (4.8-10.8) X10*3/uL RBC (4.20-5.50) X10*6/uL Hgb (12.0-16.0) g/dl Hct (37.0-47.0) % MCV (80.0-98.0) fL MCH (27.0-33.0) pg MCHC (31.0-35.0) g/dl RDW (11.0-16.0) % Plt Count (160-400) X10*3/uL MPV (9.4-12.3) fL Immature Gran % (Auto) (0.0-0.4) % Neut % (Auto) (45-73) % Lymph % (Auto) (20-40) % Kleberg % (Auto) (2-11) % Eos % (Auto) (0-4) % Baso % (Auto) (0-2) % Lymph # (Auto) (1.2-4.9) X10*3/uL Kleberg # (Auto) (0.1-1.2) X10*3/uL Eos # (Auto) (0.0-0.4) X10*3/uL Baso # (Auto) (0.0-0.2) X10*3/uL Abs Immat Gran (auto) (0.00-0.03) X10*3/uL Absolute Neuts (auto) (2.0-8.3) x10*3/uL Absolute Nucleated RBC (0.0-0.012) X10*3/uL Nucleated RBC % (auto) (0.0-0.2) /100WBC PT 11.5 (10.0-13.1) SEC INR 1.0 (0.9-1.1) APTT 30.4 (26.0-36.4) SEC D-Dimer High Sensitivty NG/ML Sodium (135-145) mmol/L Potassium (3.3-5.1) mmol/L Chloride (96-108) mmol/L Carbon Dioxide (22-29) mmol/L Anion Gap (12-20) BUN (9-16) mg/dL Creatinine (0.5-1.4) mg/dL Estim Creat Clear Calc Estimated GFR Random Glucose (60-115) mg/dL Calcium (8.4-10.2) mg/dL Total Bilirubin (0.0-1.0) mg/dL Direct Bilirubin (0.0-0.5) mg/dL AST (5-31) U/L ALT (0-31) U/L Alkaline Phosphatase (39-117) U/L Troponin I High Sens < 3.5 (<3.5-17.0) ng/L B-Natriuretic Peptide 15 (<100) pg/mL Total Protein (6.5-8.0) g/dL Albumin (3.5-5.0) g/dL Lipase (8-78) U/L 07/29/22 Range/Units 22:11 WBC (4.8-10.8) X10*3/uL RBC (4.20-5.50) X10*6/uL Hgb (12.0-16.0) g/dl Hct (37.0-47.0) % MCV (80.0-98.0) fL MCH (27.0-33.0) pg MCHC (31.0-35.0) g/dl RDW (11.0-16.0) % Plt Count (160-400) X10*3/uL MPV (9.4-12.3) fL Immature Gran % (Auto) (0.0-0.4) % Neut % (Auto) (45-73) % Lymph % (Auto) (20-40) % Kleberg % (Auto) (2-11) % Eos % (Auto) (0-4) % Baso % (Auto) (0-2) % Lymph # (Auto) (1.2-4.9) X10*3/uL Kleberg # (Auto) (0.1-1.2) X10*3/uL Eos # (Auto) (0.0-0.4) X10*3/uL Baso # (Auto) (0.0-0.2) X10*3/uL Abs Immat Gran (auto) (0.00-0.03) X10*3/uL Absolute Neuts (auto) (2.0-8.3) x10*3/uL Absolute Nucleated RBC (0.0-0.012) X10*3/uL Nucleated RBC % (auto) (0.0-0.2) /100WBC PT (10.0-13.1) SEC INR (0.9-1.1) APTT (26.0-36.4) SEC D-Dimer High Sensitivty NG/ML Sodium (135-145) mmol/L Potassium (3.3-5.1) mmol/L Chloride (96-108) mmol/L Carbon Dioxide (22-29) mmol/L Anion Gap (12-20) BUN (9-16) mg/dL Creatinine (0.5-1.4) mg/dL Estim Creat Clear Calc Estimated GFR Random Glucose (60-115) mg/dL Calcium (8.4-10.2) mg/dL Total Bilirubin 0.3 (0.0-1.0) mg/dL Direct Bilirubin < 0.2 (0.0-0.5) mg/dL AST 29 (5-31) U/L ALT 48 H (0-31) U/L Alkaline Phosphatase 55 D (39-117) U/L Troponin I High Sens (<3.5-17.0) ng/L B-Natriuretic Peptide (<100) pg/mL Total Protein 5.7 L (6.5-8.0) g/dL Albumin 3.7 (3.5-5.0) g/dL Lipase 25 (8-78) U/L ECG Data Interpretation: 1301: Normal sinus rhythm rate of 80, normal WI interval, QRS duration and QTC interval, no ST segment elevation, no ST segment depression, no T-wave abnormalities, no PACs, no PVCs, this is a normal EKG. 2140: Normal sinus rhythm rate of 74, normal WI interval, QRS duration QTC interval, no ST segment elevation, no ST segment depression, no T-wave abnormalities, no PVCs, no PACs, no change compared to the 1st EKG. Critical Care Time Critical Care Time Critical Care Time: Yes Total Critical Care Time: 35 Attestation: Critical Care: The patient was critically ill with a high probability of imminent or life threatening deterioration. I spent greater than 30 minutes of discontinuous time evaluating the patient,delivering critical care at the bedside, discussing and evaluating pertinent data with consultants. Critical care time does not include time spent performing separately billable procedures or teaching. Total time spent performing critical care was 35 minutes. Discharge Plan Discharge Clinical Impression: New-onset angina, Breathlessness on exertion Patient Disposition: Admitted As Inpatient
[2022-07-29 22:02] LABS: Prothrombin Time 11.5 SEC (10.0-13.1)
[2022-07-29 22:04] LABS: D Dimer High Sensitivity 209 NG/ML
[2022-07-29 22:05] LABS: Partial Thromboplastin Time 30.4 SEC (26.0-36.4)
[2022-07-29 22:12] VITALS: BP 129/70; PULSE 76; RESP 18; TEMP 36.6; O2SAT 97
[2022-07-29] MEDS: iohexoL 350 MG/ML 100 ML INFUS..BTL IV (22:12)
[2022-07-29 22:14] LABS: B Type Natriuretic Peptide 15 pg/mL (<100); Troponin-I High Sensitivity < 3.5 ng/L (<3.5-17.0)
[2022-07-29 22:35] LABS: Alanine Aminotransferase 48 U/L (0-31); Albumin Level 3.7 g/dL (3.5-5.0); Alkaline Phosphatase 55 U/L (39-117); Aspartate Amino Transferase 29 U/L (5-31); Bilirubin Direct < 0.2 mg/dL (0.0-0.5); Bilirubin Total 0.3 mg/dL (0.0-1.0); Lipase 25 U/L (8-78); Total Protein 5.7 g/dL (6.5-8.0)
--- NOTE | 2022-07-30 | CA_ITS ---
Acquisition Time: 2022-07-30 11:09:49 Total Exercise Time: 00:02:37 Test Indications: Chest Pain Medications: SEE EMAR Protocol: KARINE Max HR: 126 BPM 78% of Pred: 161 BPM Max BP: 128/048 mmHG Max Work Load: 4.6 METS Exercise stress test with exercise 2 min 37 sec of Karine protocol, achieving 78% MPHR, with report of fatigue, moderate sob, and 4/10 tightess in chest ( unlike the CP that brought her to hospital) with request to stop, without arrythmia, with normotensive response to exercise, with nondiagnostic EKG for ischemia due to suboptimal heart rate however no ischemic changes noted at acheived workload. In recovery her symptoms resolved. Test reviewed with Dr Wasserman Referred By: Kacie Dia Overread By: KACIE DIA
--- NOTE | 2022-07-30 | ECG_ITS ---
Test Reason : CHEST PAIN Blood Pressure : / mmHG Vent. Rate : 085 BPM Atrial Rate : 085 BPM P-R Int : 100 ms QRS Dur : 080 ms QT Int : 366 ms P-R-T Axes : 043 039 057 degrees QTc Int : 435 ms Sinus rhythm with short IN Otherwise normal ECG When compared with ECG of 29-JUL-2022 21:40, No significant change was found Referred By: Lorena Batista Electronically Signed By:CARLITOS JANE
--- NOTE | 2022-07-30 | CA_ITS ---
Acquisition Time: 2022-07-31 08:44:53 Total Exercise Time: 00:02:00 Test Indications: CP Medications: SEE CHART Protocol: LEXISCAN Max HR: 131 BPM 81% of Pred: 161 BPM Max BP: 100/058 mmHG Max Work Load: 1.0 METS Pharmacological stress test with Lexiscan injection, while sitting and kicking her legs, with report of moderate sob, chest pressure and nausea post injection, without arrythmia, with 100/58 at baseline and mild drop in BP post injection to low of 90/58, with nondiagnostic EKG for ischemia. In recovery she was treated with 150cc NS, Aminophylline 75mg IVP to reverse Lexiscan with resolution of symptoms. BP improved to 102/60. Nuclear images pending. Test reviewed with Dr Wasserman Referred By: Lorena Batista Overread By: BIBI TUCKER
[2022-07-30 01:29] VITALS: BP 112/67; PULSE 77; RESP 18; O2SAT 95
--- NOTE | 2022-07-30 01:37 | PM.IMHP ---
History of Present Illness Date of Service: 07/30/22 Chief Complaint: chest pain and sob 61-year-old female with past medical history of thyroid cancer, hypothyroidism, HLD, rheumatoid arthritis, osteoporosis, presents the hospital with complaints of shortness of breath as well as chest pain with exertion. She describes the chest pain is midsternal radiating to the back, associated with chest pressure, occurs on exertion and resolves at rest. This has been going on for the past 8 weeks with symptoms worsening in the past 1 week. She is also complaining of shortness of breath with no cough, no sputum production, no fever or chills. She denies any orthopnea or PND, no lower extremity edema. She reports that she had COVID about 7-8 weeks ago and ever since she has had these symptoms. She denies having any abdominal pain nausea or vomiting, no diarrhea constipation, no urinary symptoms and no lower extremity edema. She denies any headache or change in vision. No numbness tingling or weakness. On arrival to the ED patient hemodynamically stable with no significant abnormal vitals Labs are significant for WBC count of 6.3, hemoglobin of 13.4, hematocrit 41.5, troponin less than 3, lipase normal, BNP 15, chest CT angiogram negative for PE, with a right upper lobe 3 mm lung nodule, chest x-ray shows no acute pulmonary process. EKG shows no ST T-wave changes suggestive of ACS This case was discussed with Cardiology by the ED physician and they recommend admission for stress test as well as echo in a.m. Review of Systems Review of Systems: Yes all other systems are reviewed and are negative [facility] Medical History Allergic rhinitis Annual physical exam Chronic asthma Cough COVID-19 COVID-19 vaccine series completed Headache Hyperlipidemia Osteoarthritis Osteoporosis Rheumatoid arthritis Rib pain on left side Sinusitis Swelling of lower extremity Tendinitis Thyroid nodule Family History Mother No problems noted. Surgical History H/O colonoscopy H/O: hysterectomy Social History Household Members: Spouse and Children Housing: House Are you a primary behavioral health care manager to a significant other at home: No Do you presently have visiting nurse or other home services: No Alcohol intake: never Patient Tobacco Use Status: Never used Tobacco e-Cigarette/Vaping Use: Never Used Second Hand Smoke Exposure: No Advance Directives: No Advance Directives Information Provided: No service: No Current occupational status: employed Cognitive needs: No Hearing needs: No Vision needs: Yes Meds Allergies Allergy/AdvReac Type Severity Reaction Status Date / Time aspirin Allergy Intermediate SOB Verified 07/29/22 09:39 ibuprofen [Advil] Allergy Intermediate SOB Verified 07/29/22 09:39 levofloxacin [Levaquin] Allergy Unknown pt does Verified 07/29/22 09:39 not remember Active Medications: Current Medications Pharmacy Consult (Consult Rx Perform Med Rec) 1 each MISCELLANE ONCE PRN PRN Reason: Consult order Home Medications Medication Instructions Recorded Confirmed Last Taken Type alendronate 70 mg tablet 0 mg PO DIRECTED 01/04/21 06/03/22 Unknown History ascorbate calcium (vitamin C) 500 1,000 mg PO DAILY 02/13/21 06/03/22 Unknown History mg tablet cholecalciferol (vitamin D3) 25 25 mcg PO DAILY 02/13/21 06/03/22 Unknown History mcg (1,000 unit) tablet folic acid 1 mg tablet 1 mg PO DAILY 02/13/21 06/03/22 Unknown History methotrexate sodium 2.5 mg tablet 10 mg PO QWEEK 02/13/21 06/03/22 Unknown History adalimumab 40 mg/0.4 mL See Rx Instructions subcut .COMPLEX 01/06/22 06/03/22 Unknown History subcutaneous pen kit (Humira(CF) Pen) Physical Exam Vital Signs and Narrative: Vital Signs: Last Vital Signs Temp 98 F 07/29/22 22:12 Pulse 77 07/30/22 01:29 Resp 18 07/30/22 01:29 BP 112/67 07/30/22 01:29 Pulse Ox 95 07/30/22 01:29 O2 Del Method 07/30/22 01:29 BMI result Body Mass Index 19.8 Const: Other: Appears well General: cooperative and no acute distress Orientation/consciousness: patient oriented x3 Eyes: General: appearance normal, both eyes and all related structures Pupils: Equal, round and reactive pupils present Resp: Effort & Inspection: normal respiratory effort Auscultation: clear to auscultation bilaterally Cardio: Rate: regular rate Rhythm: regular rhythm GI: Palpation (GI): Soft to palpation Auscultation: normal bowel sounds Skin: General skin exam: no rashes or lesions noted Neuro: General: patient oriented x3 Cranial nerves: Yes Equal, round and reactive pupils present Cognition (Neuro): normal cognition Extrem: General: Yes normal to inspection and Yes no pedal edema Results Labs CBC and Chem 7: 07/29/22 12:53 07/29/22 12:53 Labs: Laboratory Results - last 24 hr 07/29/22 07/29/22 07/29/22 12:53 12:53 21:46 MCV 92.6 MCH 29.9 MCHC 32.3 RDW 13.6 Plt Count 227 MPV 9.1 L Immature Gran % (Auto) 0.3 Neut % (Auto) 53.9 Lymph % (Auto) 27.2 [place] % (Auto) 11.2 H Eos % (Auto) 6.9 H Baso % (Auto) 0.5 Lymph # (Auto) 1.7 [place] # (Auto) 0.7 Eos # (Auto) 0.4 Baso # (Auto) 0.0 Abs Immat Gran (auto) 0.02 Absolute Neuts (auto) 3.4 Absolute Nucleated RBC 0.000 Nucleated RBC % (auto) 0.0 PT INR APTT D-Dimer High Sensitivty 209 Anion Gap 13 Estim Creat Clear Calc 81.9 Estimated GFR > 60 Random Glucose 105 Calcium 9.6 Total Bilirubin Direct Bilirubin AST ALT Alkaline Phosphatase Troponin I High Sens B-Natriuretic Peptide Total Protein Albumin Lipase 07/29/22 07/29/22 07/29/22 21:46 21:46 21:46 MCV MCH MCHC RDW Plt Count MPV Immature Gran % (Auto) Neut % (Auto) Lymph % (Auto) [place] % (Auto) Eos % (Auto) Baso % (Auto) Lymph # (Auto) [place] # (Auto) Eos # (Auto) Baso # (Auto) Abs Immat Gran (auto) Absolute Neuts (auto) Absolute Nucleated RBC Nucleated RBC % (auto) PT 11.5 INR 1.0 APTT 30.4 D-Dimer High Sensitivty Anion Gap Estim Creat Clear Calc Estimated GFR Random Glucose Calcium Total Bilirubin Direct Bilirubin AST ALT Alkaline Phosphatase Troponin I High Sens < 3.5 B-Natriuretic Peptide 15 Total Protein Albumin Lipase 07/29/22 22:11 MCV MCH MCHC RDW Plt Count MPV Immature Gran % (Auto) Neut % (Auto) Lymph % (Auto) [place] % (Auto) Eos % (Auto) Baso % (Auto) Lymph # (Auto) [place] # (Auto) Eos # (Auto) Baso # (Auto) Abs Immat Gran (auto) Absolute Neuts (auto) Absolute Nucleated RBC Nucleated RBC % (auto) PT INR APTT D-Dimer High Sensitivty Anion Gap Estim Creat Clear Calc Estimated GFR Random Glucose Calcium Total Bilirubin 0.3 Direct Bilirubin < 0.2 AST 29 ALT 48 H Alkaline Phosphatase 55 D Troponin I High Sens B-Natriuretic Peptide Total Protein 5.7 L Albumin 3.7 Lipase 25 Imaging Radiologist's Impressions: Impressions Chest X-Ray 07/29/22 13:15 IMPRESSION: No acute pulmonary process. Venous Duplex 07/29/22 21:56 IMPRESSION: No DVT demonstrated in the left lower extremity. Chest CTA 07/29/22 22:30 IMPRESSION: 1. No pulmonary embolus identified. 2. Right upper lobe 3 mm lung nodule. According to the UPDATED 2017 Fleischner Society recommendations, the advised follow-up imaging for solid nodules < 6 mm is: LOW RISK PATIENT: No routine follow-up. HIGH RISK PATIENT: Optional CT at 12 months. VTE: negative Assessment and Plan (1) New-onset angina: Status: Acute (2) Dyspnea on exertion: Status: Acute Plan This is a 61-year-old female with past medical history of asthma, rheumatoid arthritis, HLD, recent COVID within the past 2 months presents to the hospital with complaints of shortness of breath and new onset angina # angina - typical chest pain that occurs on exertion and resolves at rest - patient has no significant risk factors except rheumatoid arthritis on DMARDS - troponin negative, EKG shows no evidence of ACS - cardiology consult, plan for stress test and echo in a.m. # dyspnea on exertion - no if can not abnormality on chest CT, negative for PE - no elevated BNP - not hypoxic - echo in a.m., - cardiology consult- # hypothyroidism - continue levothyroxine # asthma - not in exacerbation, no wheezing - continue home inhalers # rheumatoid arthritis - continue home medications DVT prophylaxis: Lovenox Quality Stroke Does the patient have a stroke diagnosis?: No VTE Prior VTE?: No VTE Risk Level:: Medical - moderate - high VTE Device Contraindication: Treatment Not Indicated VTE Drug Contraindication: N/A - Med Ordered
[2022-07-30 01:53] LABS: COVID-19 Test Negative (Negative)
--- NOTE | 2022-07-30 02:22 | PC.NURSE ---
Pt. resting in bed. Pt ambulating to use the bathroom. Gait was steady. Pt. reports no pain. Will continue to monitor.
[2022-07-30] MEDS: Enoxaparin Sodium 40 MG/0.4 ML SYRINGE SUBCUT ×2 (06:22→21:50)
--- NOTE | 2022-07-30 06:24 | PC.NURSE ---
Woke pt. up at 6:20 to administer lovenox. Pt. denies any pain and states she is feeling ok currently and was able to get some rest last night.
[2022-07-30 06:50] VITALS: BP 93/54; PULSE 79; RESP 16; O2SAT 96
[2022-07-30 06:56] LABS: MANUAL DIFF FLAG NO
[2022-07-30 06:58] LABS: Basophils Percent Auto 0.6 % (0-2); Eosinophils Absolute Auto 0.7 X10*3/uL (0.0-0.4); Eosinophils Percent Auto 10.4 % (0-4); Hematocrit 39.4 % (37.0-47.0); Hemoglobin 12.8 g/dl (12.0-16.0); Imm Gran Abs Auto 0.01 X10*3/uL (0.00-0.03); Imm Gran Pct Auto 0.2 % (0.0-0.4); Lymphocytes Absolute Auto 2.1 X10*3/uL (1.2-4.9); Lymphocytes Percent Auto 33.2 % (20-40); Mean Corpuscular HGB Conc 32.5 g/dl (31.0-35.0); Mean Corpuscular Hemoglobin 30.5 pg (27.0-33.0); Mean Corpuscular Volume 93.8 fL (80.0-98.0); Mean Platelet Volume 9.4 fL (9.4-12.3); Monocytes Absolute Auto 0.8 X10*3/uL (0.1-1.2); Monocytes Percent Auto 12.7 % (2-11); Neutrophils Absolute Auto 2.7 x10*3/uL (2.0-8.3); Neutrophils Percent Auto 42.9 % (45-73); Platelet Count 217 X10*3/uL (160-400); Red Cell Distribution Width 13.6 % (11.0-16.0); White Blood Count 6.4 X10*3/uL (4.8-10.8)
--- NOTE | 2022-07-30 07:00 | CA_ITS ---
Transthoracic Echocardiogram Patient (Last, First, Middle): Yeison Duran, Gender: Female Date of : 1960 Age: 61 Procedure Date: 07/30/2022 Procedure Type: Transthoracic Echocardiogram Location: ER Height: 165.1 cm Weight: 53.98 kg BSA: 1.59 m2 Heart Rate: bpm BP: 93 / 54 mmHg Gas Appliance Installer: TO Referring MD: Elliott Segura MD Can Closing Machine Operator: Tad Wasserman MD Symptoms: angina Study Quality: Fair/Contrast ECG Rhythm: Sinus Conclusions: - Essentially normal study Findings Procedure Information Contrast agent, definity, is being given per protocol without apparent complications. Left Ventricle Normal left ventricular size, thickness, and systolic function. The visually estimated ejection fraction is between 55-60%. Spectral Doppler is indicative of a normal filling pattern. Right Ventricle Normal right ventricular cavity size and systolic function. Atria Both atria are normal in size. Interatrial shunt cannot be excluded. Aortic Valve The aortic valve structure and function is likely normal. There is no aortic valve stenosis. There is no aortic valve regurgitation. Mitral Valve Normal mitral valve structure and function. There is trace mitral valve regurgitation. There is no mitral valve stenosis. Pulmonic Valve The pulmonic valve was not well visualized. Tricuspid Valve Likely normal tricuspid valve structure and function. There is trace tricuspid valve regurgitation. The right ventricular systolic pressure is normal. The right ventricular systolic pressure is 15 mmHg. Normal right atrial pressure. There is no evidence of pulmonary hypertension. Great Vessels All visible segments of the aorta are normal in size. The pulmonary artery was not well visualized. Venous The inferior vena cava is normal in size and collapses greater than 50% with inspiration. Pericardium/Pleural There is no evidence of pericardial effusion. Prior Study Comparison No prior study available for comparison. Measurements 2D Linear Measurements IVSd: 0.80 0.6-0.9/0.6-1.0 cm LVIDd: 4.59 3.9-5.3/4.2-5.9 cm LVIDd Index: 2.89 2.4-3.2/2.2-3.1 cm/m2 LVIDs: 2.89 2.0-3.6 cm LVPWd: 0.76 0.7-1.1 cm LA Diam: 3.20 2.7-3.8/3.0-4.0 cm LAIDs Index: 2.01 1.5-2.3 cm/m2 LV Mass: 141.58 67-162/88-224 g LV Mass Index: 89.04 43-95/49-115 g/m2 LVOT Diam: 2.20 3.0+(-)1.3 cm 2D Systolic Function EF 4C: 55.60 >55% EF 2C: 57.70 >55% EF BiP: 56.70 >55% Mitral Valve MV Pk E: 0.66 MV PK A: 0.55 MV Decel Time: 199.00 E/A: 1.20 E'Lateral: 11.90 E'Medial: 8.05 E/E' Med: 8.10 E/E' Lat: 5.50 PHT: 58.00 MVA PHT: 3.79 Decel [place]: 3.29 Aortic Valve AoV Pk Ezequiel: 1.26 AoV Mn Ezequiel: 0.89 AoV VTI: 0.26 AoV Pk Grad: 6.00 Aov Mn Grad: 3.00 MARCELL Cont.VTI: 2.87 LVOT LVOT Pk Ezequiel: 0.99 LVOT Mn Ezequiel: 0.69 LVOT VTI: 0.20 LVOT Pk Grad: 4.00 LVOT Mn Grad: 2.00 LVOT Diam: 2.20 LVOT Area: 3.80 Diastolic Function MV Pk E: 0.66 MV Pk A: 0.55 E/A: 1.20 E'Medial: 8.05 E/E' Med: 8.10 E' Laterial: 11.90 E/E' Lat: 5.50 Right Ventricle TAPSE (mm): 17.00 TVS' Ezequiel: 11.00 Tricuspid Valve TR Pk Ezequiel: 1.75 TR Pk Grad: 12.00 RA Press: 3.00 RVSP: 15.00 Great Vessels Aorta Sinus of Valsalva: 3.63 2.0-3.5 cm Ao Asc: 3.20 2.1-3.4 cm Updated in Other Vendor System with Status of Final Tad Wasserman MD electronically signed on 07/30/2022 1:26:08 PM with status of Final
[2022-07-30 07:37] LABS: Anion Gap 13 (12-20); Blood Urea Nitrogen 11 mg/dL (9-16); Calcium 8.9 mg/dL (8.4-10.2); Carbon Dioxide 26 mmol/L (22-29); Chloride 107 mmol/L (96-108); Creatinine Clr Calc Pharmacy 83.2; Estimated Glomerular Filt Rate > 60; Glucose Random 113 mg/dL (60-115); Potassium 3.6 mmol/L (3.3-5.1); Sodium 142 mmol/L (135-145)
--- NOTE | 2022-07-30 07:52 | PC.NURSE ---
report received from night nurse PAULINE Dey. Pt is awaiting Levothyroxine which has been ordered by hospitalist. Currently awaiting pharmacy to verify morning medications, including the Levothyroxine. Otherwise pt is resting comfortably on stretcher this AM with no complaints. Pt ate most of her breakfast and is awaiting bed assignment. Pt is normal sinus on the monitor, VSS
--- NOTE | 2022-07-30 08:58 | PHA.MEDREC ---
Pharmacy Consult ? Medication Reconciliation Pharmacy has completed the medication reconciliation. Went over med rec done by nursing, removed one time meds that were mistakingly put in. Spoke to pt who had list at bedside.
[2022-07-30] MEDS: Montelukast Sodium 10 MG TABLET PO (09:14)
[2022-07-30] MEDS: Cholecalciferol (Vitamin D3) 25 MCG TABLET PO (09:14)
[2022-07-30] MEDS: Levothyroxine Sodium 100 MCG TABLET PO (09:14)
[2022-07-30] MEDS: Folic Acid 1 MG TABLET PO (09:14)
[2022-07-30] MEDS: Ascorbic Acid 500 MG TABLET 1000 MG PO (09:14)
[2022-07-30] MEDS: Atorvastatin Calcium 40 MG TABLET PO (09:14)
[2022-07-30] MEDS: 0.9 % Sodium Chloride Flush 3 ML SYRINGE IVFLUSH ×2 (09:14→21:53)
--- NOTE | 2022-07-30 09:48 | P.CONCA_ITS ---
History of Present Illness History of Present Illness Date of Service: 07/30/22 Requesting physician: Lj Hernandez Consult reason: other (Crescendo angina) Chief complaint: HBP/Leg swelling/SOB Narrative: I was consulted to see Yeison in cardiology consultation today as she has recently developing symptoms of exertional chest discomfort. She is a pleasant 61-year-old woman with prior chest history of hyperlipidemia on treatment about 3 weeks ago she developed COVID. She was not at work. Since then she started working and since started noticing that with any exertional activity she would get retrosternal chest tightness radiating to the back. She continues to have symptoms and symptoms continue to worsen with minimal exertion. She therefore decided to come to the emergency room. She saw her primary care physician ye sterday and was referred for further evaluation here. She came at noon but was seen later in the evening. Her EKGs have been normal in the office as well as in the emergency room repeated EKGs. Initial troponin was less than 3.5. However she was admitted for observation and possible stress test this morning. She has had no prior cardiac history. She had COVID infection last year for which she had to be hospitalized. She again had COVID this year. She also does complain of exertional shortness of breath. No orthopnea, PND, leg edema. No lightheadedness, syncope. She underwent a CT yesterday which was negative for pulmonary embolism. Review of Systems Constitutional: Constitutional: Reports no additional constitutional complaints Cardiovascular: Cardiovascular: Reports chest pain with activity Gastrointestinal: Gastrointestinal: Reports no additional gastrointestinal complaints Musculoskeletal: Musculoskeletal: Reports no additional musculoskeletal complaints Integumentary/Breasts: Skin/Breast: Reports system reviewed and no additional complaints, except as docu Neurologic: Reports system reviewed and no additional complaints, except as documented Psychiatric: Psychiatric: Reports no additional psychiatric complaints Endocrine: Endocrine: Reports no additional endocrine complaints Hematologic/Lymphatic: Hematologic/Lymphatic: Reports no additional hematolog ic/lymphatic complaints PMFSH Past Medical History Medical History Allergic rhinitis Annual physical exam Chronic asthma Cough COVID-19 COVID-19 vaccine series completed Headache Hyperlipidemia Osteoarthritis Osteoporosis Rheumatoid arthritis Rib pain on left side Sinusitis Swelling of lower extremity Tendinitis Thyroid nodule Family History Family History Mother No problems noted. Surgical History Surgical History H/O colonoscopy H/O: hysterectomy Social History Social History Household Members: Spouse and Children Housing: House Are you a primary sub acute care nurse to a significant other at home: No Do you presently have visiting nurse or other home services: No Alcohol intake: never Patient Tobacco Use Status: Never used Tobacco e-Cigarette/Vaping Use: Never Used Second Hand Smoke Exposure: No Advance Directives: No Advance Directives Information Provided: No service: No Current occupational status: employed Cognitive needs: No Hearing needs: No Vision needs: Yes Meds Allergies Allergy/AdvReac Type Severity Reaction Status Date / Time aspirin Allergy Intermediate SOB Verified 07/29/22 09:39 ibuprofen [Advil] Allergy Intermediate SOB Verified 07/29/22 09:39 levofloxacin [Levaquin] Allergy Unknown pt does Verified 07/29/22 09:39 not remember Active Medications: Current Medications Acetaminophen (Acetaminophen 325 Mg Tablet) 650 mg PO Q6H PRN PRN Reason: Pain, Mild (Pain Scale 1-3) Albuterol Sulfate (Albuterol Sulfate 90 Mcg 8 Gm Inhaler) 2 puff INHALE Q4H PRN PRN Reason: shortness of breath or wheezing Ascorbic Acid (Ascorbic Acid 500 Mg Tablet) 1,000 mg PO DAILY [facility] Last Admin: 07/30/22 09:14 Dose: 1,000 mg Atorvastatin Calcium (Atorvastatin Calcium 40 Mg Tablet) 40 mg PO DAILY [facility] Last Admin: 07/30/22 09:14 Dose: 40 mg Docusate Sodium (Docusate Sodium 100 Mg Capsule) 100 mg PO DAILY PRN PRN Reason: Constipation Enoxaparin Sodium (Enoxaparin Sodium 40 Mg/0.4 Ml Syringe) 40 mg SUBCUT BEDTIME [facility] Last Admin: 07/30/22 06:22 Dose: 40 mg Fluticasone Propionate (Fluticasone Propionate Nasal 16 Gm [place]) 2 spray NOSTRIL-B DAILY PRN PRN Reason: allergy symptoms Fluticasone/Vilanterol (Fluticasone/Vilanterol 200/25 Blst.W.Dev) 1 puff INHALE RDAILY [facility] Folic Acid (Folic Acid 1 Mg Tablet) 1 mg PO DAILY [facility] Last Admin: 07/30/22 09:14 Dose: 1 mg Levothyroxine Sodium (Levothyroxine Sodium 100 Mcg Tablet) 100 mcg PO DAILY@0600 [facility] Last Admin: 07/30/22 09:14 Dose: 100 mcg Methotrexate (Methotrexate Sodium 2.5 Mg Tablet) 10 mg PO [facility] Montelukast Sodium (Montelukast Sodium 10 Mg Tablet) 10 mg PO DAILY [facility] Last Admin: 07/30/22 09:14 Dose: 10 mg Ondansetron HCl (Ondansetron Hcl 4 Mg/2 Ml Vial) 4 mg IVPUSH Q8H PRN PRN Reason: Nausea and Vomiting Pharmacy Consult (Consult Rx Perform Med Rec) 1 each MISCELLANE ONCE PRN PRN Reason: Consult order Sodium Chloride (0.9 % Sodium Chloride Flush 3 Ml Syringe) 3 ml IVFLUSH QSHIFT [facility] Last Admin: 07/30/22 09:14 Dose: 3 ml Vitamin D (Cholecalciferol (Vitamin D3) 25 Mcg Tablet) 25 mcg PO DAILY [facility] Last Admin: 07/30/22 09:14 Dose: 25 mcg Home Medications Medication Instructions Recorded Confirmed Last Taken Type alendronate 70 mg tablet 70 mg PO [place] 01/04/21 07/30/22 07/27/22 History ascorbate calcium (vitamin C) 500 1,000 mg PO DAILY 02/13/21 07/30/22 07/29/22 History mg tablet cholecalciferol (vitamin D3) 25 25 mcg PO DAILY 02/13/21 07/30/22 07/29/22 History mcg (1,000 unit) tablet folic acid 1 mg tablet 1 mg PO DAILY 02/13/21 07/30/22 07/29/22 History methotrexate sodium 2.5 mg tablet 10 mg PO 02/13/21 07/30/22 07/26/22 History adalimumab 40 mg/0.4 mL See Rx Instructions subcut .COMPLEX 01/06/22 07/30/22 07/25/22 History subcutaneous pen kit (Humira(CF) Pen) fexofenadine 180 mg tablet 180 mg PO DAILY PRN Allergy 07/30/22 07/30/22 Unknown History Symptoms fluticasone propionate 50 2 spray intranasal DAILY PRN 07/30/22 07/30/22 Unknown History mcg/actuation nasal Allergy Symptoms spray,suspension melatonin 5 mg tablet 5 mg PO BEDTIME PRN Sleep 07/30/22 07/30/22 Unknown Hist ory Physical Exam Vital Signs: Vital Signs: Last Vital Signs Temp 98 F 07/29/22 22:12 Pulse 79 07/30/22 06:50 Resp 16 07/30/22 06:50 BP 93/54 L 07/30/22 06:50 Pulse Ox 96 07/30/22 06:50 O2 Del Method 07/30/22 06:50 BMI result Body Mass Index 19.8 Const: General: cooperative, no acute distress, alert, awake and Physically active Nutritional Appearance: well nourished and thin Orientation/consciousness: patient oriented x3 Limitations: no limitations HEENT: Head: Yes normocephalic and Yes atraumatic Neck: Neck: Yes trachea midline, Yes supple and Yes no JVD Resp: Effort & Inspection: normal respiratory effort Auscultation: clear to auscultation bilaterally Cardio: Jugular venous distension: no JVD Palpation: normal PMI Rate: regular rate Rhythm: regular rhythm Heart sounds: S1 normal heart sound present, S2 normal heart sound present, no click, no gallops, no murmurs and no rubs GI: Auscultation: normal bowel sounds Neuro: General: patient oriented x3 and no focal motor deficits Extrem: General: Yes no clubbing, cyanosis or edema Psych: Appearance: grossly normal Objective Labs and Meds Result diagrams: 07/30/22 06:32 07/30/22 06:32 Lab results: Laboratory Results - last 24 hr 07/29/22 07/29/22 07/29/22 12:53 12:53 21:46 WBC 6.3 RBC 4.48 Hgb 13.4 Hct 41.5 MCV 92.6 MCH 29.9 MCHC 32.3 RDW 13.6 Plt Count 227 MPV 9.1 L Immature Gran % (Auto) 0.3 Neut % (Auto) 53.9 Lymph % (Auto) 27.2 Bee % (Auto) 11.2 H Eos % (Auto) 6.9 H Baso % (Auto) 0.5 Lymph # (Auto) 1.7 Bee # (Auto) 0.7 Eos # (Auto) 0.4 Baso # (Auto) 0.0 Abs Immat Gran (auto) 0.02 Absolute Neuts (auto) 3.4 Absolute Nucleated RBC 0.000 Nucleated RBC % (auto) 0.0 PT INR APTT D-Dimer High Sensitivty 209 Sodium 144 Potassium 4.0 Chloride 107 Carbon Dioxide 28 Anion Gap 13 BUN 11 Creatinine 0.63 Estim Creat Clear Calc 81.9 Estimated GFR > 60 Random Glucose 105 Calcium 9.6 Total Bilirubin Direct Bilirubin AST ALT Alkaline Phosphatase Troponin I High Sens B-Natriuretic Peptide Total Protein Albumin Lipase COVID-19 (JOSE) COVID-19 Clin Com 07/29/22 07/29/22 07/29/22 21:46 21:46 21:46 WBC RBC Hgb Hct MCV MCH MCHC RDW Plt Count MPV Immature Gran % (Auto) Neut % (Auto) Lymph % (Auto) Bee % (Auto) Eos % (Auto) Baso % (Auto) Lymph # (Auto) Bee # (Auto) Eos # (Auto) Baso # (Auto) Abs Immat Gran (auto) Absolute Neuts (auto) Absolute Nucleated RBC Nucleated RBC % (auto) PT 11.5 INR 1.0 APTT 30.4 D-Dimer High Sensitivty Sodium Potassium Chloride Carbon Dioxide Anion Gap BUN Creatinine Estim Creat Clear Calc Estimated GFR Random Glucose Calcium Total Bilirubin Direct Bilirubin AST ALT Alkaline Phosphatase Troponin I High Sens < 3.5 B-Natriuretic Peptide 15 Total Protein Albumin Lipase COVID-19 (JOSE) COVID-19 Clin Com 07/29/22 07/30/22 07/30/22 22:11 01:27 06:32 WBC 6.4 RBC 4.20 Hgb 12.8 Hct 39.4 MCV 93.8 MCH 30.5 MCHC 32.5 RDW 13.6 Plt Count 217 MPV 9.4 Immature Gran % (Auto) 0.2 Neut % (Auto) 42.9 L Lymph % (Auto) 33.2 Bee % (Auto) 12.7 H Eos % (Auto) 10.4 H Baso % (Auto) 0.6 Lymph # (Auto) 2.1 Bee # (Auto) 0.8 Eos # (Auto) 0.7 H Baso # (Auto) 0.0 Abs Immat Gran (auto) 0.01 Absolute Neuts (auto) 2.7 Absolute Nucleated RBC 0.000 Nucleated RBC % (auto) 0.0 PT INR APTT D-Dimer High Sensitivty Sodium Potassium Chloride Carbon Dioxide Anion Gap BUN Creatinine Estim Creat Clear Calc Estimated GFR Random Glucose Calcium Total Bilirubin 0.3 Direct Bilirubin < 0.2 AST 29 ALT 48 H Alkaline Phosphatase 55 D Troponin I High Sens B-Natriuretic Peptide Total Protein 5.7 L Albumin 3.7 Lipase 25 COVID-19 (JOSE) Negative COVID-19 Clin Com See Note 07/30/22 06:32 WBC RBC Hgb Hct MCV MCH MCHC RDW Plt Count MPV Immature Gran % (Auto) Neut % (Auto) Lymph % (Auto) Bee % (Auto) Eos % (Auto) Baso % (Auto) Lymph # (Auto) Bee # (Auto) Eos # (Auto) Baso # (Auto) Abs Immat Gran (auto) Absolute Neuts (auto) Absolute Nucleated RBC Nucleated RBC % (auto) PT INR APTT D-Dimer High Sensitivty Sodium 142 Potassium 3.6 Chloride 107 Carbon Dioxide 26 Anion Gap 13 BUN 11 Creatinine 0.62 Estim Creat Clear Calc 83.2 Estimated GFR > 60 Random Glucose 113 Calcium 8.9 D Total Bilirubin Direct Bilirubin AST ALT Alkaline Phosphatase Troponin I High Sens B-Natriuretic Peptide Total Protein Albumin Lipase COVID-19 (JOSE) COVID-19 Clin Com Multiple EKG shows normal sinus rhythm with normal EKG Imaging Radiologist's impression: Impressions Chest X-Ray 07/29/22 13:15 IMPRESSION: No acute pulmonary process. Venous Duplex 07/29/22 21:56 IMPRESSION: No DVT demonstrated in the left lower extremity. Chest CTA 07/29/22 22:30 IMPRESSION: 1. No pulmonary embolus identified. 2. Right upper lobe 3 mm lung nodule. According to the UPDATED 2017 Fleischner Society recommendations, the advised follow-up imaging for solid nodules < 6 mm is: LOW RISK PATIENT: No routine follow-up. HIGH RISK PATIENT: Optional CT at 12 months. VTE: negative Assessment and Plan (1) Crescendo angina: Status: Acute Patient has symptoms of recent onset and progressive exertional chest discomfort with lesser activity is highly concerning for crescendo angina. Her EKG and troponins are negative. I offered her 2 options including stress test given normal EKG and good functional capacity we can evaluate her objectively with a stress test to evaluate for symptoms and at workload and sees an EKG changes and then proceed with cardiac catheterization versus directly proceeding with car diac catheterization. She does not have significant high risk features at that time I think we can pursue with a stress test. This was discussed with her. She is agreeable. Further treatment based on the finding of stress test. Thank you for allowing me to partake in the care Procedures Date of Service Date of Service: 07/30/22
[2022-07-30 12:26] VITALS: BP 121/60; PULSE 75; RESP 16; O2SAT 95
--- NOTE | 2022-07-30 12:42 | MHC.CM.PN ---
met with pt and her pt is working and independent covid vax x 3 dc plan home no servceis
--- NOTE | 2022-07-30 12:46 | MHC.CM.PN ---
pt dcd home no skilled ser vceis ordered by
--- NOTE | 2022-07-30 13:38 | PC.NURSE ---
pt requesting to leave, this nurse spoke to Dr. Batista who states that he preferred the pt to stay for additional stress testing per the legal practice manager. this nurse educated the pt about the need for additional cardiac testing, pt now agreeable to staying for now
--- NOTE | 2022-07-30 14:59 | PM.EVENT ---
Event Note Date of Service: 07/30/22 Event Note: This patient is seen and examined earlierby hospitalist team this morning seems sob somewhat improving Physical exam : unchanged from h&P. assessment and plan coordinated in H&P note: Agree with the plan in addition: cardio eval apprecaited -need further workup with stress test to evaluate for symptoms?.further management as per stress test results.
[2022-07-30 16:47] VITALS: BP 103/58; PULSE 79; RESP 16; TEMP 36.4; O2SAT 95
[2022-07-30 19:45] VITALS: BP 92/52; PULSE 77; RESP 17; TEMP 36.7; O2SAT 95
--- NOTE | 2022-07-30 21:11 | PC.NURSE ---
RN to RN report given to Edilma. Transporter notified.
[2022-07-30 23:09] VITALS: BP 94/52; PULSE 75; RESP 16; TEMP 37.2; O2SAT 95
[2022-07-31 02:36] VITALS: BMI 19.8
[2022-07-31 03:30] VITALS: BP 104/51; PULSE 72; RESP 15; TEMP 36.6; O2SAT 94
[2022-07-31] MEDS: Levothyroxine Sodium 100 MCG TABLET PO (05:20)
[2022-07-31 06:00] VITALS: BMI 19.9
[2022-07-31 08:00] VITALS: BP 101/66; PULSE 75; RESP 18; TEMP 37.2; O2SAT 93
--- NOTE | 2022-07-31 09:55 | P.PNCA_ITS ---
Subjective Subjective Date of Service: 07/31/22 <MIRELLA Alexander - Last Filed: 07/31/22 10:15> 07/31/22 <Tad Wasserman MD - Last Filed: 07/31/22 16:27> Principal diagnosis: Chest pain, sob <MIRELLA Alexander Last Filed: 07/31/22 10:15> Interval history: Seen at 0830. Today she reports that she is feeling a little better. She slept well. No CP at rest. She says breathing is comfortable at rest but gets sob with activity. No dizziness, edema. Tele showing SR without arrthmia. She is hoping to go home today. Nuclear stress test being completed today, <MIRELLA Alexander Last Filed: 07/31/22 10:15> Review of Systems Review of Systems as above <MIRELLA Alexander - Last Filed: 07/31/22 10:15> Yes all other systems are reviewed and are negative <MIRELLA Alexander - Last Filed: 07/31/22 10:15> Physical Exam Vital Signs: Last Vital Signs Temp 98.9 F 07/31/22 08:00 Pulse 75 07/31/22 08:00 Resp 18 07/31/22 08:00 BP 101/66 07/31/22 08:00 Pulse Ox 93 07/31/22 08:00 O2 Del Method 07/31/22 08:00 BMI result Body Mass Index 19.9 <MIRELLA Alexander - Last Filed: 07/31/22 10:15> Const General: cooperative, healthy appearing, comfortable and no acute distress <MIRELLA Alexander - Last Filed: 07/31/22 10:15> Neck Neck: Yes normal visual inspection and Yes no JVD <MIRELLA Alexander Last Filed: 07/31/22 10:15> Resp Effort & Inspection: normal respiratory effort <MIRELLA Alexander Last Filed: 07/31/22 10:15> Auscultation: clear to auscultation bilaterally, no crackles, no rales, no rhonchi and no wheezes <MIRELLA Alexander - Last Filed: 07/31/22 10:15> Cardio Jugular venous distension: no JVD <MIRELLA Alexander Last Filed: 07/31/22 10:15> Rate: regular rate <MIRELLA Alexander - Last Filed: 07/31/22 10:15> Rhythm: regular rhythm <MIRELLA Alexander - Last Filed: 07/31/22 10:15> Heart sounds: S1 normal heart sound present, S2 normal heart sound present, no gallops, no murmurs and no rubs <MIRELLA Alexander - Last Filed: 07/31/22 10:15> GI Inspection: Yes normal to inspection <MIRELLA Alexander - Last Filed: 07/31/22 10:15> Extrem General: Yes normal to inspection and No no pedal edema <MIRELLA Alexander - Last Filed: 07/31/22 10:15> Psych Appearance: grossly normal <MIRELLA Alexander Last Filed: 07/31/22 10:15> Mental Status: mental status grossly normal <MIRELLA Alexander Last Filed: 07/31/22 10:15> Speech and movement: Normal speech and movement present <MIRELLA Alexander Last Filed: 07/31/22 10:15> Objective Labs and Meds Result diagrams: : 07/30/22 06:32 07/30/22 06:32 <MIRELLA Alexander Last Filed: 07/31/22 10:15> Progress Note: A&P Assessment and plan (1) Angelocendo angina: Status: Acute <MIRELLA Alexander Last Filed: 07/31/22 10:15> Assessment and Plan: Reports of increasing chest discomfort and sob with activity, in the last 2 months, since COVID infection 05/2022. She has ruled out for ACS. EKG normal sinus rhythm without acute ST/ T wave abn. CTA chest neg for PE. Echo normal, EF 55-60%. CXR no acute findings. BNP 15. Troponin < 3.5. Tele monitoring shows stable SR. Exercise stress test yesterday with significant decrease in exercise tolerance, mod sob and chest tightness, with nondiagnostic EKG for ischemia. Nuclear stress test being completed today. If normal pt can be discharged from a cardiology perspective. Would then recommend Pulmonary consult/ evaluation of lung function, post COVID. If stress test is abnormal - then further treatment plan to be determined. <MIRELLA Alexander - Last Filed: 07/31/22 10:15> Reports of increasing chest discomfort and sob with activity, in the last 2 months, since COVID infection 05/2022. She has ruled out for ACS. EKG normal sinus rhythm without acute ST/ T wave abn. CTA chest neg for PE. Echo normal, EF 55-60%. CXR no acute findings. BNP 15. Troponin < 3.5. Tele monitoring shows sta ble SR. Exercise stress test yesterday with significant decrease in exercise tolerance, mod sob and chest tightness, with nondiagnostic EKG for ischemia. Nuclear stress test being completed today. If normal pt can be discharged from a cardiology perspective. Would then recommend Pulmonary consult/ evaluation of lung function, post COVID. If stress test is abnormal - then further treatment plan to be determined. Patient symptoms concerning for crescendo angina. Underwent extensive cardiac workup include echocardiogram and myocardial perfusion imaging. Both of these are within normal limits. This rules out significant obstructive coronary artery disease. Should be able to discharge home today. Outpatient follow-up with Pulmonary with pulmonary workup should be pursued. <Tad Wasserman MD - Last Filed: 07/31/22 16:27> (2) Dyspnea on exertion: Status: Acute <MIRELLA Alexander - Last Filed: 07/31/22 10:15> Time Spent With Patient Time: Total time spent is greater than 50% in coordination of care (as documented) at patient's floor/unit and/or counseling patient: 18 <MIRELLA Alexander - Last Filed: 07/31/22 10:15> Progress Note: Quality Stroke Does the patient have a stroke diagnosis?: No <MIRELLA Alexander Last Filed: 07/31/22 10:15> Procedures Date of Service Date of Service: 07/31/22 <MIRELLA Alexander - Last Filed: 07/31/22 10:15>
[2022-07-31 11:50] VITALS: BP 103/54; PULSE 81; RESP 20; TEMP 37.2; O2SAT 94
[2022-07-31] MEDS: Folic Acid 1 MG TABLET PO (12:40)
[2022-07-31] MEDS: Montelukast Sodium 10 MG TABLET PO (12:40)
[2022-07-31] MEDS: Ascorbic Acid 500 MG TABLET 1000 MG PO (12:40)
[2022-07-31] MEDS: Cholecalciferol (Vitamin D3) 25 MCG TABLET PO (12:41)
[2022-07-31] MEDS: 0.9 % Sodium Chloride Flush 3 ML SYRINGE IVFLUSH ×2 (12:41→14:57)
[2022-07-31] MEDS: Atorvastatin Calcium 40 MG TABLET PO (12:41)
--- NOTE | 2022-07-31 13:16 | HO.PM.IMPN ---
Subjective Subjective Date of Service: 07/31/22 Interval History: ?angina,sob seems improving Review of Systems Denies any new chest pain or nausea or vomiting or abdominal pain or fever chills. Physical Exam Vital Signs: Vital Signs: Last Vital Signs Temp 99.0 F 07/31/22 11:50 Pulse 81 07/31/22 11:50 Resp 20 07/31/22 11:50 BP 103/54 L 07/31/22 11:50 Pulse Ox 94 07/31/22 11:50 O2 Del Method 07/31/22 11:50 BMI result Body Mass Index 19.9 Appearance: Alert.? Oriented X3. cvs: rrr, [id number]. res: clear to auscultation ,no rhonchii or wheezing abd: no rebound or guarding ,nt, bs present. ext pulses present , no cyanosis . neuro: axo3 , nonfocal. Objective Data Active Medications Acetaminophen (Acetaminophen 325 Mg Tablet) 650 mg PO Q6H PRN PRN Reason: Pain, Mild (Pain Scale 1-3) Albuterol Sulfate (Albuterol Sulfate 90 Mcg 8 Gm Inhaler) 2 puff INHALE Q4H PRN PRN Reason: shortness of breath or wheezing Ascorbic Acid (Ascorbic Acid 500 Mg Tablet) 1,000 mg PO DAILY [facility] Last Admin: 07/31/22 12:40 Dose: 1,000 mg Documented By: ASHLEY Atorvastatin Calcium (Atorvastatin Calcium 40 Mg Tablet) 40 mg PO DAILY [facility] Last Admin: 07/31/22 12:41 Dose: 40 mg Documented By: ASHLEY Docusate Sodium (Docusate Sodium 100 Mg Capsule) 100 mg PO DAILY PRN PRN Reason: Constipation Enoxaparin Sodium (Enoxaparin Sodium 40 Mg/0.4 Ml Syringe) 40 mg SUBCUT BEDTIME [facility] Last Admin: 07/30/22 21:50 Dose: 40 mg Documented By: [facility] Fluticasone Propionate (Fluticasone Propionate Nasal 16 Gm [place]) 2 spray NOSTRIL-B DAILY PRN PRN Reason: allergy symptoms Fluticasone/Vilanterol (Fluticasone/Vilanterol 200/25 Blst.W.Dev) 1 puff INHALE RDAILY [facility] Last Admin: 07/31/22 09:01 Dose: Not Given Documented By: JALEN Non-Admin Reason: pt not avail Folic Acid (Folic Acid 1 Mg Tablet) 1 mg PO DAILY [facility] Last Admin: 07/31/22 12:40 Dose: 1 mg Documented By: ASHLEY Levothyroxine Sodium (Levothyroxine Sodium 100 Mcg Tablet) 100 mcg PO DAILY@0600 [facility] Last Admin: 07/31/22 05:20 Dose: 100 mcg Documented By: AB Methotrexate (Methotrexate Sodium 2.5 Mg Tablet) [address] [facility] Montelukast Sodium (Montelukast Sodium 10 Mg Tablet) 10 mg PO DAILY [facility] Last Admin: 07/31/22 12:40 Dose: 10 mg Documented By: ASHLEY Ondansetron HCl (Ondansetron Hcl 4 Mg/2 Ml Vial) 4 mg IVPUSH Q8H PRN PRN Reason: Nausea and Vomiting Pharmacy Consult (Consult Rx Perform Med Rec) 1 each MISCELLANE ONCE PRN PRN Reason: Consult order Sodium Chloride (0.9 % Sodium Chloride Flush 3 Ml Syringe) 3 ml IVFLUSH QSHIFT [facility] Last Admin: 07/31/22 12:41 Dose: 3 ml Documented By: ASHLEY Vitamin D (Cholecalciferol (Vitamin D3) 25 Mcg Tablet) 25 mcg PO DAILY [facility] Last Admin: 07/31/22 12:41 Dose: 25 mcg Documented By: ASHLEY Labs CBC & Chem 7: 07/30/22 06:32 07/30/22 06:32 Assessment and Plan Plan 61-year-old female with past medical history of asthma, rheumatoid arthritis, HLD, recent COVID within the past 2 months presents to the hospital with complaints of shortness of breath and new onset angina # angina - typical chest pain that occurs on exertion and resolves at rest - patient has no significant risk factors except rheumatoid arthritis on DMARDS - troponin negative, EKG shows no evidence of ACS. echo:Normal left ventricular size, thickness, and systolic function. The visually estimated ejection fraction is between 55-60%.? Spectral Doppler is indicative of a normal filling pattern. cardiology eval -need stress pending # dyspnea on exertion - no if can not abnormality on chest CT, negative for PE - no elevated BNP - not hypoxic - echo in a.m., - cardiology consult- # hypothyroidism - continue levothyroxine # asthma - not in exacerbation, no wheezing - continue home inhalers # rheumatoid arthritis - continue home medications DVT prophylaxis:? Lovenox inaptient need:angina -cardiac workup pending Quality Stroke Does the patient have a stroke diagnosis?: No VTE Prior VTE?: No VTE Risk Level:: Medical - moderate - high VTE Device Contraindication: Treatment Not Indicated VTE Drug Contraindication: N/A - Med Ordered
--- NOTE | 2022-07-31 15:01 | P.DS_ITS ---
DS: Providers Provider Date of Service: 07/31/22 Date of admission: 07/30/22 01:35 Primary care physician: Tiffanie Hernandez MD Consults: 07/30/22 01:35 Consult to Cardiology Routine Consulting Provider: Tad Wasserman Reason for consultation: angina Has provider been notified: Yes 07/30/22 01:37 Consult to Cardiology Stat Consulting Provider: Tad Wasserman Reason for consultation: DANIEL, chest pain with exertion, worse x1 week evaluate for new onset angina Has provider been notified: Yes Attending physician on discharge: Lorena Batista Discharging clinician: Lorena Batista DS: Diagnosis Discharge Diagnosis (1) Crescendo angina: Status: Acute (2) Dyspnea on exertion: Status: Acute DS: Summary Hospital Course Hospital Course: 61-year-old female with past medical history of thyroid cancer, hypothyroidism, HLD, rheumatoid arthritis, osteoporosis, presents the hospital with complaints of shortness of breath as well as chest pain with exertion.? She describes the chest pain is midsternal radiating to the back, associated with chest pressure, occurs on exertion and resolves at rest.? This has been going on for the past 8 weeks with symptoms worsening in the past 1 week.? She is also complaining of shortness of breath with no cough, no sputum production, no fever or chills.? She denies any orthopnea or PND, no lower extremity edema.? She reports that she had COVID about 7-8 weeks ago and ever since she has had these symptoms.? She denies having any abdominal pain nausea or vomiting, no diarrhea constipation, no urinary symptoms and no lower extremity edema.? She denies any headache or change in vision.? No numbness tingling or weakness.? On arrival to the ED patient hemodynamically stable with no significant abnormal vitals Labs are significant for WBC count of 6.3, hemoglobin of 13.4, hematocrit 41.5, troponin less than 3, lipase normal, BNP 15, chest CT angiogram negative for PE, with a right upper lobe 3 mm lung nodule, chest x-ray shows no acute pulmonary process.? EKG shows no ST T-wave changes suggestive of ACS This case was discussed with Cardiology by the ED physician and they recommend admission for stress test as well as echo in a.m. hospital course: 61-year-old female with past medical history of asthma, rheumatoid arthritis, HLD, recent COVID within the past 2 months presents to the hospital with complaints of shortness of breath and possible new onset angina-seen by Cardiology: her heart enzyme normal , no pulmonary embolism on CTA, echo and stress test seems fine(please see imaging section): Seems to be asymptomatic now ,possible intial symptoms related to asthma -now seems to be improved, Subsequently patient is going home and follow-up with the PCP outpatient for further management. incidental finding on CTA : Right upper lobe 3 mm lung nodule. According to the UPDATED 2017 Fleischner Society recommendations, the advised follow-up imaging for solid nodules < 6 mm is: ?? LOW RISK PATIENT: No routine follow-up. ?? HIGH RISK PATIENT: Optional CT at 12 months. Follow up with pcp outpatient. patient will need outpatient follow up -for lung nodules and further management of sob. Above management discussed with the patient in detail length she understand and in agreement with the above plan, time spent 50 minutes and 50% time spent on counseling. Significant findings: As above. Procedures performed: None. Treatment and response: As above. Complications: None. Time Spent with Patient Time attestation: Total time spent providing and/or coordinating discharge services: Discharge coordination time: Greater than 30 minutes Quality: Safe Use of Opioids Does Pt have an Active Cancer Diagnosis on the Problem List?: No Quality: Stroke Does the patient have a stroke diagnosis?: No Physical Exam Vital Signs: Vital Signs: Last Vital Signs Temp 99.0 F 07/31/22 11:50 Pulse 81 07/31/22 11:50 Resp 20 07/31/22 11:50 BP 103/54 L 07/31/22 11:50 Pulse Ox 94 07/31/22 11:50 O2 Del Method 07/31/22 11:50 BMI result Body Mass Index 19.9 Appearance: Alert.? Oriented X3. cvs: rrr, [id number]. res: clear to auscultation ,no rhonchii or wheezing abd: no rebound or guarding ,nt, bs present. ext pulses present , no cyanosis . neuro: axo3 , nonfocal. DS: Data Additional Comments Additional comments: 12:53 12:53 21:46 MCV ?92.6 ? ? MCH ?29.9 ? ? MCHC ?32.3 ? ? RDW ?13.6 ? ? Plt Count ?227 ? ? MPV ?9.1 L ? ? Immature Gran % (Auto) ?0.3 ? ? Neut % (Auto) ?53.9 ? ? Lymph % (Auto) ?27.2 ? ? [place] % (Auto) ?11.2 H ? ? Eos % (Auto) ?6.9 H ? ? Baso % (Auto) ?0.5 ? ? Lymph # (Auto) ?1.7 ? ? [place] # (Auto) ?0.7 ? ? Eos # (Auto) ?0.4 ? ? Baso # (Auto) ?0.0 ? ? Abs Immat Gran (auto) ?0.02 ? ? Absolute Neuts (auto) ?3.4 ? ? Absolute Nucleated RBC ?0.000 ? ? Nucleated RBC % (auto) ?0.0 ? ? PT ? ? ? INR ? ? ? APTT ? ? ? D-Dimer High Sensitivty ? ? ?209 Anion Gap ? ?13 ? Estim Creat Clear Calc ? ?81.9 ? Estimated GFR ? ?> 60A ? Random Glucose ? ?105 ? Calcium ? ?9.6 ? Total Bilirubin ? ? ? Direct Bilirubin ? ? ? AST ? ? ? ALT ? ? ? Alkaline Phosphatase ? ? ? Troponin I High Sens ? ? ? B-Natriuretic Peptide ? ? ? Total Protein ? ? ? Albumin ? ? ? Lipase ? 07/29/22 07/29/22 07/29/22 ? 21:46 21:46 21:46 MCV ? ? ? MCH ? ? ? MCHC ? ? ? RDW ? ? ? Plt Count ? ? ? MPV ? ? ? Immature Gran % (Auto) ? ? ? Neut % (Auto) ? ? ? Lymph % (Auto) ? ? ? [place] % (Auto) ? ? ? Eos % (Auto) ? ? ? Baso % (Auto) ? ? ? Lymph # (Auto) ? ? ? [place] # (Auto) ? ? ? Eos # (Auto) ? ? ? Baso # (Auto) ? ? ? Abs Immat Gran (auto) ? ? ? Absolute Neuts (auto) ? ? ? Absolute Nucleated RBC ? ? ? Nucleated RBC % (auto) ? ? ? PT ? ?11.5 ? INR ? ?1.0 ? APTT ? ?30.4 ? D-Dimer High Sensitivty ? ? ? Anion Gap ? ? ? Estim Creat Clear Calc ? ? ? Estimated GFR ? ? ? Random Glucose ? ? ? Calcium ? ? ? Total Bilirubin ? ? ? Direct Bilirubin ? ? ? AST ? ? ? ALT ? ? ? Alkaline Phosphatase ? ? ? Troponin I High Sens ? ? ?< 3.5 B-Natriuretic Peptide ?15 ? ? CT/CT angio chest PE protocol IMPRESSION: 1.? No pulmonary embolus identified. 2.? Right upper lobe 3 mm lung nodule. According to the UPDATED 2017 Fleischner Society recommendations, the advised follow-up imaging for solid nodules < 6 mm is: ?? LOW RISK PATIENT: No routine follow-up. ?? HIGH RISK PATIENT: Optional CT at 12 months. NM/NM milo perf SPECT rest & str Impression: ? 1.? Myocardial perfusion imaging study shows likely normal myocardial perfusion. No clear evidence of any ischemia or infarction. 2.? Gated LVEF is 57% during stress and 74% during rest. 3. Transient ischemic dilatation not present. ? EKG component of the test reported separately. US/US venous duplex LE LT IMPRESSION: No DVT demonstrated in the left lower extremity. ?XR/XR chest 1V IMPRESSION: No acute pulmonary process. ? Discharge Plan Discharge Anticipated Discharge Date/Time: 07/31/22 14:53 Patient Disposition: Home, Self-Care Discharge Diagnosis: sob , chest pain noncardiac -improved. Referrals: Tiffanie Hernandez MD [Primary Care Provider] - 1 Week Discharge Medications: Continued albuterol sulfate [ProAir HFA] 90 mcg/actuation HFA aerosol inhaler 2 puff inhalation Q4H PRN (Reason: shortness of breath or wheezing) Qty: 8.5 5RF rosuvastatin [Crestor] 10 mg tablet 10 mg PO DAILY Qty: 90 3RF montelukast 10 mg tablet 10 mg PO DAILY Qty: 90 3RF levothyroxine 100 mcg tablet 100 mcg PO DAILY Qty: 90 3RF Advair HFA 230-21 mcg/actuation HFA aerosol inhaler 2 puff inhalation BID Qty: 36 3RF fluticasone propionate 50 mcg/actuation spray,suspension 2 spray intranasal DAILY PRN (Reason: Allergy Symptoms) fexofenadine [Belem] 180 mg Tablet 180 mg PO DAILY PRN (Reason: Allergy Symptoms) melatonin 5 mg Tablet 5 mg PO BEDTIME PRN (Reason: Sleep) folic acid 1 mg tablet 1 mg PO DAILY methotrexate sodium 2.5 mg tablet 10 mg PO SA ascorbate calcium (vitamin C) 500 mg tablet 1,000 mg PO DAILY cholecalciferol (vitamin D3) 25 mcg (1,000 unit) tablet 25 mcg PO DAILY alendronate 70 mg tablet 70 mg PO PARSON Humira(CF) Pen 40 mg/0.4 mL pen injector kit See Rx Instructions subcut .COMPLEX Rx Instructions: inject one - 40 mg/0.4 mL pen every 2 weeks subcut Discharge Orders: Discharge Order (Routine); Ordered 07/31/22 Ordered By: Lorena Batista Diet: Advance to usual diet Activity on Discharge: As tolerated Stand Alone Forms: Patient Portal Discharge page, Work/School Release Care Plan Goals: 61-year-old female with past medical history of asthma, rheumatoid arthritis, HLD, recent COVID within the past 2 months presents to the hospital with complaints of shortness of breath and possible new onset angina-seen by Cardiology: her heart enzyme normal , no pulmonary embolism on CTA, echo and stress test seems fine: Seems to be asymptomatic now. Subsequently patient is going home and follow-up with the PCP outpatient for further management. patient will need outpatient follow up -for lung nodules and further management of sob. Health Concerns: If any new short of breath or chest pain or any new symptoms -please go to the nearest emergency room for further evaluation. Plan of Treatment: As above. Assessment: As above.
--- NOTE | 2022-07-31 15:03 | MHC.CM.PN ---
Patient has been medically cleared for dc to home today, self care.
== END 2022-07-31 15:58 | disposition home or self-care (01) ==
LOC: HO.ED 07-30 01:24 → HO.EDOVER 07-30 01:48 → HO.IMC 07-30 19:40
PROVIDERS: Emergency Medicine; Admitting Provider Internal Medicine; Emergency Provider Emergency Medicine Emergency Medical Services; PCP Internal Medicine; Visit Provider Internal Medicine
DX: R07.9 Chest pain, unspecified (principal); R06.02 Shortness of breath; R60.0 Localized edema; J45.909 Unspecified asthma, uncomplicated; E78.5 Hyperlipidemia, unspecified; M06.9 Rheumatoid arthritis, unspecified; Z79.02 Long term (current) use of antithrombotics/antiplatelets; Z79.899 Other long term (current) drug therapy; Z20.822 Contact with and (suspected) exposure to COVID-19
CPT/HCPCS: 36415; 71045; 71275; 78452; 80048; 80076; 83690; 83880; 84484; 85025; 85379; 85610; 85730; 87635; 93005; 93017; 93306; 93971; 96372; 99219; 99285; A9500; J0280; J1650; J2785; Q9957; Q9967

== ENCOUNTER 2022-08-11 10:50 | Outpatient (REF) | payer OTHER, SELFPAY ==
[2022-08-11 14:04] LABS: Hematocrit 42.7 % (37.0-47.0); Hemoglobin 13.9 g/dl (12.0-16.0); Mean Corpuscular HGB Conc 32.6 g/dl (31.0-35.0); Mean Corpuscular Hemoglobin 30.7 pg (27.0-33.0); Mean Corpuscular Volume 94.3 fL (80.0-98.0); Mean Platelet Volume 9.8 fL (9.4-12.3); Platelet Count 249 X10*3/uL (160-400); Red Blood Count 4.53 X10*6/uL (4.20-5.50); Red Cell Distribution Width 13.2 % (11.0-16.0); White Blood Count 6.3 X10*3/uL (4.8-10.8)
[2022-08-11 14:22] LABS: Alanine Aminotransferase 40 U/L (0-31); Albumin Level 4.4 g/dL (3.5-5.0); Alkaline Phosphatase 65 U/L (39-117); Anion Gap 14 (12-20); Aspartate Amino Transferase 26 U/L (5-31); Bilirubin Total 0.5 mg/dL (0.0-1.0); Blood Urea Nitrogen 11 mg/dL (9-16); Calcium 9.4 mg/dL (8.4-10.2); Carbon Dioxide 29 mmol/L (22-29); Chloride 104 mmol/L (96-108); Cholesterol 172 mg/dL; Estimated Glomerular Filt Rate > 60; Glucose Fasting 97 mg/dL (60-99); HDL Cholesterol 79 mg/dL; LDL Cholesterol Calculated 69 mg/dl; Potassium 3.9 mmol/L (3.3-5.1); Sodium 143 mmol/L (135-145); Total Protein 6.8 g/dL (6.5-8.0); Triglycerides 121 mg/dL
[2022-08-11 14:35] LABS: TSH reflex Free T4 0.01 uIU/mL (0.32-4.0); Vitamin D 25-OH Total 27.7 ng/mL (>30)
[2022-08-11 15:25] LABS: Free T4 (Free Thyroxine) 1.43 ng/dL (0.71-1.85)
== END 2022-08-11 10:51 | disposition home or self-care (01) ==
LOC: HO.HMGCLDS 10:50
PROVIDERS: PCP Internal Medicine; Visit Provider Internal Medicine
DX: E03.9 Hypothyroidism, unspecified (principal); E78.5 Hyperlipidemia, unspecified
CPT/HCPCS: 36415; 80053; 80061; 82306; 84439; 84443; 85027

== ENCOUNTER 2022-09-15 07:38 | Outpatient (REF) | payer OTHER, SELFPAY ==
--- NOTE | 2022-09-15 17:13 | PFT_ITS ---
INDICATION: Asthma. SPIROMETRY: FEV1 to FVC of 88% with an FEV1 of 3.39 L, which is 128% predicted. FVC of 3.86 L, which is 112% predicted. No significant response to bronchodilators noted. Maximum voluntary ventilation 132% predicted. LUNG VOLUMES: Total lung capacity 103% predicted with a residual volume of 81% predicted. DIFFUSION CAPACITY: DLCO 85% predicted. COMPARISON: None. INTERPRETATION: No obstructive nor restrictive ventilatory defects identified. No significant response to bronchodilators noted. Normal maximum voluntary ventilation. Lung volumes are within normal limits. Diffusion capacity also within normal limits. No evidence of any obstructive airway disease. If asthma is strongly in differential, consider methacholine challenge assessing for hyper-reactive airways, otherwise clinical correlation warranted. MD TOMY Muñoz/MODNikki / [id number]
== END 2022-09-15 07:39 | disposition home or self-care (01) ==
LOC: HO.RESP 07:38
PROVIDERS: PCP Internal Medicine; Visit Provider Internal Medicine
DX: J45.909 Unspecified asthma, uncomplicated (principal)
CPT/HCPCS: 94060; 94727; 94729

== ENCOUNTER 2022-11-17 13:06 | Day surgery (SDC) | payer OTHER, SELFPAY ==
[2022-03-05 11:41] VITALS: BMI 19.7
--- NOTE | 2022-03-13 09:42 | HO.ANESPROP2 ---
HPI - Anesthesia Eval Consult details Narrative: 61yo F for Colonoscopy PMFSH Active Problems Active Problems: All Active Problems (Updated 03/05/22 @ 11:41 by Sushma Fried RN) Hypothyroid (Acute) Encounter for screening colonoscopy (Acute) Osteoporosis (Acute) Swelling of lower extremity (Acute) Rheumatoid arthritis (Acute) Hyperlipidemia (Acute) Rib pain on left side (Acute) Annual physical exam (Acute) Sinusitis (Acute) Cough (Acute) Headache (Acute) Chronic asthma (Acute) COVID-19 (Acute) Past Medical History Medical History (Updated 03/05/22 @ 11:41 by Sushma Fried RN) Allergic rhinitis Annual physical exam Chronic asthma Cough COVID-19 COVID-19 vaccine series completed Headache Hyperlipidemia Osteoarthritis Osteoporosis Rheumatoid arthritis Rib pain on left side Sinusitis Swelling of lower extremity Tendinitis Thyroid nodule Family History Family History Mother No problems noted. Surgical History Surgical History H/O colonoscopy H/O: hysterectomy Social History Social History Household Members: Spouse and Children Housing: House Are you a primary lawn care professional to a significant other at home: No Do you presently have visiting nurse or other home services: No Alcohol intake: never Patient Tobacco Use Status: Never used Tobacco e-Cigarette/Vaping Use: Never Used Second Hand Smoke Exposure: No service: No Current occupational status: employed Cognitive needs: No Hearing needs: No Vision needs: Yes Meds Allergies Allergy/AdvReac Type Severity Reaction Status Date / Time aspirin Allergy Intermediate SOB Verified 03/05/22 11:13 ibuprofen [Advil] Allergy Intermediate SOB Verified 03/05/22 11:13 levofloxacin [Levaquin] Allergy Unknown pt does Verified 03/05/22 11:13 not remember Home Medications Medication Instructions Recorded Confirmed Last Taken Type alendronate 70 mg tablet 0 mg PO DIRECTED 01/04/21 03/05/22 Unknown History ascorbate calcium (vitamin C) 500 1,000 mg PO DAILY tab 02/13/21 03/05/22 Unknown History mg tablet cholecalciferol (vitamin D3) 25 25 mcg PO DAILY 02/13/21 03/05/22 Unknown History mcg (1,000 unit) tablet folic acid 1 mg tablet 1 mg PO DAILY 02/13/21 03/05/22 Unknown History methotrexate sodium 2.5 mg tablet 10 mg PO QWEEK 02/13/21 03/05/22 Unknown History adalimumab 40 mg/0.4 mL See Rx Instructions SUBCUT .COMPLEX 01/06/22 03/05/22 Unknown History subcutaneous pen kit (Humira(CF) Pen) Exam Exam Date and Time: March 13, 2022 0942 Height,Weight and Vital Signs: Height 5 ft 4 in Weight 52.163 kg Pertinent Lab Results Pertinent Lab Results: Laboratory Tests 02/10/22 02/10/22 09:57 09:57 WBC 5.6 Hgb 13.4 Hct 41.8 Plt Count 236 Sodium 141 Potassium 4.2 Chloride 106 Carbon Dioxide 28 BUN 12 Creatinine 0.69 Assessment and Plan Assessment Anesthesia Assessment: Chart Reviewed
[2022-11-17 14:36] VITALS: BP 123/70; PULSE 78; RESP 14; TEMP 37.2; O2SAT 94
--- NOTE | 2022-11-17 16:07 | MHC.SHP ---
Pre-Procedural Eval Section A Date of Service: 11/17/22 The patient is an INPATIENT: No The History & Physical has been completed within 30 days and I have reviewed it.: No Section B Chief Complaint: screening Details of Present Illness: Colon cancer screening Relevant Family History (Specify if Yes): No Relevant Social History: None Present Medications: see Short Stay Collaborative assessment Medical History: Significant History (Chronic asthma Cough COVID-19 Headache Hyperlipidemia Osteoarthritis Rheumatoid arthritis) History of Previous Operations: Relevant previous surgery/procedure and date(s) (History of colonoscopy, history of hysterectomy) Allergies: Allergies Allergy/AdvReac Type Severity Reaction Status Date / Time aspirin Allergy Intermediate SOB Verified 08/15/22 08:52 ibuprofen [Advil] Allergy Intermediate SOB Verified 08/15/22 08:52 levofloxacin [Levaquin] Allergy Unknown pt does Verified 08/15/22 08:52 not remember Review of Systems Sugical H&P ROS: Negative: Constitution, Cardiovascular, Respiratory and Gastrointestinal Exam Surgical H&P Exam: Normal: Heart, Normal: Lungs, Normal: Extremities and Normal: Abdomen Plan Diagnosis/Plan: Unchanged I have reviewed the history and physical and performed a pertinent physical examination on my patient. No changes have occurred unless specified. Time Spent With Patient Time: Total time managing care of this patient today ____ minutes.
--- NOTE | 2022-11-17 16:27 | HO.ANESPROP2 ---
HPI - Anesthesia Eval Consult details Narrative: 62 F for colonoscopy [facility] Active Problems Active Problems: All Active Problems (Updated 11/12/22 @ 12:41 by Sushma Fried RN) Hypothyroid (Acute) Encounter for screening colonoscopy (Acute) Dyspnea on exertion (Acute) Lung nodule (Acute) Osteoporosis (Acute) Swelling of lower extremity (Acute) Rheumatoid arthritis (Acute) Hyperlipidemia (Acute) Rib pain on left side (Acute) Annual physical exam (Acute) Sinusitis (Acute) Cough (Acute) Headache (Acute) Chronic asthma (Acute) COVID-19 (Acute) Past Medical History Medical History (Updated 11/12/22 @ 12:41 by Sushma Fried RN) Allergic rhinitis Annual physical exam Chronic asthma Cough COVID-19 vaccine series completed Headache History of COVID-19 Hyperlipidemia Osteoarthritis Osteoporosis Rheumatoid arthritis Rib pain on left side Sinusitis Swelling of lower extremity Tendinitis Thyroid nodule Family History Family History Mother No problems noted. Family history of problems with anesthesia: No Surgical History Surgical History H/O colonoscopy H/O: hysterectomy History of Problems with Anesthesia: No Social History Social History Household Members: Spouse and Children Housing: House Are you a primary pet caregiver to a significant other at home: No Do you presently have visiting nurse or other home services: No Alcohol intake: never Patient Tobacco Use Status: Never used Tobacco e-Cigarette/Vaping Use: Never Used Second Hand Smoke Exposure: No Use of substances other than those prescribed or required for medical reasons: No Have you been hit, kicked, punched, or otherwise hurt by someone within the past year? If so, by whom?: No Are you DNR?: No Advance Directives: No Advance Directives Information Provided: Yes (brochure mailed) Advance Directives on File: No Recently lost weight without trying: No Eating poorly because of decreased appetite: No Nutrition Risks: No Nutritional Risk Poor oral hygiene: Yes (upper/lower full dentures) service: No Current occupational status: employed Cognitive needs: No Hearing needs: No Vision needs: Yes Meds Allergies Allergy/AdvReac Type Severity Reaction Status Date / Time aspirin Allergy Intermediate SOB Verified 08/15/22 08:52 ibuprofen [Advil] Allergy Intermediate SOB Verified 08/15/22 08:52 levofloxacin [Levaquin] Allergy Unknown pt does Verified 08/15/22 08:52 not remember Home Medications Medication Instructions Recorded Confirmed Last Taken Type alendronate 70 mg tablet 70 mg PO PARSON 01/04/21 11/12/22 07/27/22 History ascorbate calcium (vitamin C) 500 1,000 mg PO DAILY 02/13/21 11/12/22 07/29/22 History mg tablet cholecalciferol (vitamin D3) 25 25 mcg PO DAILY 02/13/21 11/12/22 07/29/22 History mcg (1,000 unit) tablet folic acid 1 mg tablet 1 mg PO DAILY 02/13/21 11/12/22 07/29/22 History methotrexate sodium 2.5 mg tablet 10 mg PO SA 02/13/21 11/12/22 07/26/22 History adalimumab 40 mg/0.4 mL See Rx Instructions subcut .COMPLEX 01/06/22 11/12/22 07/25/22 History subcutaneous pen kit (Humira(CF) Pen) fexofenadine 180 mg tablet 180 mg PO DAILY PRN Allergy 07/30/22 11/12/22 Unknown History Symptoms fluticasone propionate 50 2 spray intranasal DAILY PRN 07/30/22 11/12/22 Unknown History mcg/actuation nasal Allergy Symptoms spray,suspension melatonin 5 mg tablet 5 mg PO BEDTIME PRN Sleep 07/30/22 11/12/22 Unknown History Exam Exam Date and Time: November 17, 2022 1627 Height,Weight and Vital Signs: Height 5 ft 4 in Weight 52.163 kg Last Vital Signs Temp 99 F 11/17/22 14:36 Pulse 78 11/17/22 14:36 Resp 14 11/17/22 14:36 BP 123/70 11/17/22 14:36 Pulse Ox 94 11/17/22 14:36 O2 Del Method 11/17/22 14:36 Airway Mallampati Class: III Denture: Upper and Lower Loose/Missing/Broken Teeth: Yes (narrow mouth opening ) Heart: S1,S2 Lungs: b/l breath sounds Assessment and Plan Assessment Anesthesia Assessment: Anesthesia Plan Discussed and Chart Reviewed Final Anesthetic Review Family History of Problems with Anesthesia: No History of Problems with Anesthesia: No NPO: Yes ASA Class: III Final Preanesthetic Review: Meds/Allgs Chart Reviewed, Consent Obtained/Reviewed and Anes Risks/Benef Reviewed Patient Risk: Intermediate Procedure Risk: Intermediate Anesthetic Plan Anesthetic Plan: MAC: Disposition: Standard PACU
--- NOTE | 2022-11-17 16:51 | P.BOP_ITS ---
Brief Operative Note Date of Service: 11/17/22 Pre-op diagnosis: Colon cancer screening Post-op diagnosis: other (MULTIPLE COLON POLYPS, DIVERTICULOSIS, HEMORRHOIDS) Procedure: COLONOSCOPY TILL CECUM WITH SNARE POLYPECTOMY, SUBMUCOSAL INJECTION AND HEMOCLIP PLACEMENT Surgeon: Edwar Osuna MD Anesthesia: MAC Was an Electric Power Machine Operator used for this Procedure?: No Estimated blood loss (mL): 0 Pathology: other ( A: CECUM POLYPS X 3. B: CECUM POLYP #2 C: ASCENDING COLON POLYPS X2 D: TRANSVERSE COLON POLYPS X5. E: SIGMOID COLON POLYP) Condition: stable Disposition: PACU
--- NOTE | 2022-11-17 16:52 | W.PM.OPN ---
Operative Note Operative Note Date of Service: 11/17/22 Narrative: Pre-op diagnosis: Colon cancer screening Post-op diagnosis:?other (MULTIPLE COLON POLYPS, DIVERTICULOSIS, HEMORRHOIDS) Surgeon: Edwar Osuna MD Anesthesia:?MAC COLONOSCOPY TILL CECUM WITH SNARE POLYPECTOMY, SUBMUCOSAL INJECTION AND HEMOCLIP PLACEMENT Consent: Indications for the procedure and potential complications of bleeding, perforation, reaction to medications and missed diagnosis were discussed with the patient and informed consent was obtained. Instrument: Olympus PCF H 190 L variable stiffness pediatric colonoscope Monitoring: Vital signs and clinical assessment, intermittent blood pressure monitoring, continuous EKG monitoring, Pulse oximetry and Carbon Dioxide monitoring were done throughout the procedure. Colon withdrawl time was 40 minutes. Procedure: The patient was placed in the left lateral decubitis position and pre-procedure medications were administered. After a digital rectal examination of the ano-rectum, the video colonoscope was inserted into the rectum and advanced through the colon to the cecum. The colonoscope was slowly withdrawn in a retrograde panoramic fashion and the colon mucosa was carefully examined including a retroflexed view of the rectum. Findings and interventions are described below. Procedure Difficulty: Without difficulty Findings: Terminal Ileum: Not evaluated Cecum: Three 8 to 15 mm sessile polyps removed with a hot snare. A 4th 10-12 mm flat polyp adjacent to the appendicular orifice. Polyp was raised with 3 cc of normal saline and removed with a hot snare. Polypectomy site was closed with a hemoclip Ascending Colon: Four 8 to 15 mm sessile polyps removed with a hot snare. Transverse Colon: Four 8 to 18 mm sessile polyps removed with a hot snare Descending Colon: Moderate diverticulosis Sigmoid Colon: Three 15 to 20 mm sessile polyps removed with a hot snare. Severe diverticulosis with luminal narrowing. Rectum: Normal Ano-rectum: Moderate internal hemorrhoids Colon preparation: Good Impression and Post Procedure Diagnosis: Colonoscopy Findings: Fifteen medium sized polyps removed A few additional smaller polyps in the left colon were not removed due to excessive length of the procedure. Moderate to severe diverticulosis seen in the left colon Moderate hemorrhoids on retroflexed exam. Plan: Await pathology results Patient has an appointment on 12/01/22 in the GI Clinic with SADE Colon. Repeat Colonoscopy interval based on path results - in 6 months if polyps are adenomatous and 5 years if polyps are hyperplastic. Above findings were reviewed with the patient and colon polyps and diverticulosis handouts were given in the discharge area
[2022-11-17 18:09] VITALS: BP 90/50; PULSE 74; RESP 16; TEMP 37.3; O2SAT 96
[2022-11-17 18:24] VITALS: BP 101/53; PULSE 70; RESP 16; O2SAT 95
== END 2022-11-17 18:51 | disposition home or self-care (01) ==
PROVIDERS: PCP Internal Medicine; Visit Provider Internal Medicine Gastroenterology
PROC: 0DJD8ZZ Inspection of Lower Intestinal Tract, Via Natural or Artificial Opening Endoscopic (ICD-10-PCS; CPT 45378; principal; 2022-11-17 14:30)
DX: Z12.11 Encounter for screening for malignant neoplasm of colon (principal); D12.0 Benign neoplasm of cecum; D12.2 Benign neoplasm of ascending colon; D12.3 Benign neoplasm of transverse colon; D12.5 Benign neoplasm of sigmoid colon; K57.30 Diverticulosis of large intestine without perforation or abscess without bleeding; K64.8 Other hemorrhoids; E78.5 Hyperlipidemia, unspecified; M06.9 Rheumatoid arthritis, unspecified; M81.0 Age-related osteoporosis without current pathological fracture; J45.909 Unspecified asthma, uncomplicated; R05.9 Cough, unspecified; R51.9 Headache, unspecified; Z79.51 Long term (current) use of inhaled steroids; Z79.899 Other long term (current) drug therapy; Z88.1 Allergy status to other antibiotic agents; Z88.8 Allergy status to other drugs, medicaments and biological substances
CPT/HCPCS: 45385; 45381; 88305

== ENCOUNTER → 2022-12-01 10:16 | Outpatient (BNVA) | payer OTHER, SELFPAY | PROVIDERS: PCP Internal Medicine; Visit Provider Physician Assistant | DX: Z13.89 Encounter for screening for other disorder (principal) ==

== ENCOUNTER 2022-12-18 12:56 | Outpatient (REF) | payer OTHER, SELFPAY ==
[2022-12-18 14:59] LABS: Appearance Urine Clear; Color Urine Yellow; Glucose Urine UA Negative (Negative); Leukocyte Esterase Urine Negative (Negative); Nitrite Urine Negative (Negative); PH 6.5 (5.0-9.0); Specific Gravity - Urine <= 1.005 (1.005-1.025); UMIC TRIGGER UACC YES; Urine Blood Trace (Negative); Urine Ketones Negative (Negative); Urine Protein Negative (Neg-Trace)
[2022-12-18 15:40] LABS: Bacteria Urine None Seen (None Seen); Hyaline Casts Urine 0-2 /LPF (0-2); RBC Urine 0-2 /HPF (0-2); Squamous Epithelial Cell Urine 0-2 /HPF (0-2); WBC Urine 0-5 /HPF (0-5)
== END 2022-12-18 12:57 | disposition home or self-care (01) ==
LOC: HO.HMGCLDS 12:56
PROVIDERS: PCP Internal Medicine; Visit Provider Internal Medicine
DX: Z13.89 Encounter for screening for other disorder (principal)
CPT/HCPCS: 81001; 81003

== ENCOUNTER 2022-12-23 12:03 | Outpatient (REF) | payer OTHER, SELFPAY ==
[2022-12-23 13:52] LABS: MANUAL DIFF FLAG NO
[2022-12-23 13:55] LABS: Basophils Percent Auto 0.5 % (0-2); Eosinophils Absolute Auto 0.3 X10*3/uL (0.0-0.4); Eosinophils Percent Auto 4.6 % (0-4); Hematocrit 42.1 % (37.0-47.0); Hemoglobin 13.9 g/dl (12.0-16.0); Imm Gran Abs Auto 0.02 X10*3/uL (0.00-0.03); Imm Gran Pct Auto 0.3 % (0.0-0.4); Lymphocytes Absolute Auto 1.8 X10*3/uL (1.2-4.9); Mean Corpuscular Hemoglobin 30.2 pg (27.0-33.0); Mean Corpuscular Volume 91.3 fL (80.0-98.0); Mean Platelet Volume 10.1 fL (9.4-12.3); Monocytes Absolute Auto 0.8 X10*3/uL (0.1-1.2); Monocytes Percent Auto 11.5 % (2-11); Neutrophils Absolute Auto 4.3 x10*3/uL (2.0-8.3); Neutrophils Percent Auto 59.1 % (45-73); Platelet Count 252 X10*3/uL (160-400); Red Blood Count 4.61 X10*6/uL (4.20-5.50); Red Cell Distribution Width 13.2 % (11.0-16.0); White Blood Count 7.3 X10*3/uL (4.8-10.8)
[2022-12-23 14:02] LABS: Appearance Urine Clear; Color Urine Yellow; Glucose Urine UA Negative (Negative); Leukocyte Esterase Urine Negative (Negative); Nitrite Urine Negative (Negative); PH 5.5 (5.0-9.0); UMIC TRIGGER UACC YES; Urine Blood Small (1+) (Negative); Urine Ketones Negative (Negative); Urine Protein Negative (Neg-Trace)
[2022-12-23 14:12] LABS: Alanine Aminotransferase 20 U/L (0-31); Albumin Level 4.3 g/dL (3.5-5.0); Alkaline Phosphatase 70 U/L (39-117); Anion Gap 11 (12-20); Aspartate Amino Transferase 19 U/L (5-31); Bilirubin Total 0.5 mg/dL (0.0-1.0); Blood Urea Nitrogen 13 mg/dL (9-16); Calcium 9.5 mg/dL (8.4-10.2); Carbon Dioxide 28 mmol/L (22-29); Chloride 108 mmol/L (96-108); Estimated Glomerular Filt Rate > 60; Glucose Random 91 mg/dL (60-115); Sodium 143 mmol/L (135-145); Total Protein 6.6 g/dL (6.5-8.0)
[2022-12-23 14:19] LABS: Bacteria Urine None Seen (None Seen); Hyaline Casts Urine 0-2 /LPF (0-2); RBC Urine 0-2 /HPF (0-2); Squamous Epithelial Cell Urine 0-2 /HPF (0-2); WBC Urine 0-5 /HPF (0-5)
[2022-12-23 14:41] LABS: Erythrocyte Sedimentation Rate 7 MM/HR (0-20)
== END 2022-12-23 12:04 | disposition home or self-care (01) ==
LOC: HO.HMGCLDS 12:03
PROVIDERS: PCP Internal Medicine; Visit Provider Internal Medicine
DX: K37 Unspecified appendicitis (principal); K57.92 Diverticulitis of intestine, part unspecified, without perforation or abscess without bleeding; R30.0 Dysuria
CPT/HCPCS: 36415; 80053; 81001; 81003; 85025; 85652

== ENCOUNTER 2022-12-24 09:26 | Outpatient (REF) | payer OTHER, SELFPAY ==
--- NOTE | ~2022-12-24 | CT_ITS ---
EXAMINATION: CT ABDOMEN AND PELVIS WITH CONTRAST CLINICAL INFORMATION: Diverticulitis of and destroying. COMPARISON: None TECHNIQUE: Multidetector volumetric images were obtained from the superior aspect of the liver through the pubic symphysis following administration 85 mL of Omnipaque 350 intravenous contrast. Sagittal and coronal reformatted images were obtained on the technologist's workstation. Oral contrast: No This CT examination was performed using dose optimization techniques as appropriate, variously including the following: *Automated exposure control *Adjustment of mA and/or kV according to patient size (this includes techniques or standardized protocols for targeted exams where dose is matched to indication/reason for exam; i.e. extremities or head) *Use of iterative reconstruction technique DLP: 224 mGy-cm FINDINGS: LUNG BASES: The visualized lung bases are unremarkable. LIVER, GALLBLADDER, AND BILIARY TREE: The liver is normal in size, shape, and attenuation. No focal hepatic lesion or biliary ductal dilatation is present. The gallbladder is unremarkable with no evidence of radiopaque gallstones, gallbladder wall thickening, or obvious pericholecystic inflammatory changes. PANCREAS: Unremarkable. SPLEEN: Unremarkable. ADRENAL GLANDS: Unremarkable. KIDNEYS AND URETERS: The kidneys are normal in size, shape, and attenuation. No hydronephrosis, hydroureter, or calculi seen. No perinephric stranding. There is a small 6 lm hypodense lesion upper pole left kidney. BLADDER: Unremarkable. GASTROINTESTINAL TRACT: There is scattered school and stool and gas seen throughout the colon most prominent in the transverse and ascending colon. Few scattered diverticuli seen in the sigmoid region without mural thickening or fat stranding. The small bowel loops are well-opacified with oral contrast and are normal caliber. The appendix is long but normal caliber. No free air or free fluid seen.. ABDOMINAL WALL: No significant hernia is appreciated. LYMPH NODES: Normal. VASCULAR: Unremarkable. PELVIC VISCERA: There is no free air or free fluid. OSSEOUS STRUCTURES: No aggressive lytic or sclerotic process seen. CT/CT abdomen pelvis w IV con IMPRESSION: Scattered sigmoid diverticulosis without diverticulitis. Moderate constipation. Long but normal-appearing appendix. Fleischner guidelines were followed.
[2022-12-24] MEDS: Barium Sulfate Oral (Mocha) 450 ML ORAL.SUSP 900 ML PO (11:56)
[2022-12-24] MEDS: iohexoL 350 MG/ML 100 ML INFUS..BTL IV (11:57)
== END 2022-12-24 09:27 | disposition home or self-care (01) ==
LOC: HO.CT 09:26
PROVIDERS: PCP Internal Medicine; Visit Provider Internal Medicine
DX: K57.92 Diverticulitis of intestine, part unspecified, without perforation or abscess without bleeding (principal); K37 Unspecified appendicitis
CPT/HCPCS: 74177; Q9967

== ENCOUNTER 2023-02-12 12:50 | Outpatient (REF) | payer OTHER, SELFPAY ==
[2023-02-12 15:02] LABS: TSH reflex Free T4 0.03 uIU/mL (0.32-4.0)
[2023-02-12 16:38] LABS: Free T4 (Free Thyroxine) 1.45 ng/dL (0.71-1.85)
== END 2023-02-12 12:51 | disposition home or self-care (01) ==
LOC: HO.HMGCLDS 12:50
PROVIDERS: PCP Internal Medicine; Visit Provider Internal Medicine
DX: E03.9 Hypothyroidism, unspecified (principal); J45.909 Unspecified asthma, uncomplicated; R06.09 Other forms of dyspnea
CPT/HCPCS: 36415; 84439; 84443

== ENCOUNTER 2023-04-10 08:58 | Outpatient (REF) | payer OTHER, SELFPAY ==
[2023-04-10 11:24] LABS: MANUAL DIFF FLAG NO
[2023-04-10 11:35] LABS: Basophils Percent Auto 0.5 % (0-2); Eosinophils Absolute Auto 0.4 X10*3/uL (0.0-0.4); Eosinophils Percent Auto 7.2 % (0-4); Hematocrit 43.1 % (37.0-47.0); Hemoglobin 13.7 g/dl (12.0-16.0); Imm Gran Abs Auto 0.01 X10*3/uL (0.00-0.03); Imm Gran Pct Auto 0.2 % (0.0-0.4); Lymphocytes Absolute Auto 1.9 X10*3/uL (1.2-4.9); Lymphocytes Percent Auto 32.3 % (20-40); Mean Corpuscular HGB Conc 31.8 g/dl (31.0-35.0); Mean Corpuscular Hemoglobin 29.3 pg (27.0-33.0); Mean Corpuscular Volume 92.3 fL (80.0-98.0); Mean Platelet Volume 9.8 fL (9.4-12.3); Monocytes Absolute Auto 0.9 X10*3/uL (0.1-1.2); Monocytes Percent Auto 14.5 % (2-11); Neutrophils Absolute Auto 2.7 x10*3/uL (2.0-8.3); Neutrophils Percent Auto 45.3 % (45-73); Platelet Count 247 X10*3/uL (160-400); Red Blood Count 4.67 X10*6/uL (4.20-5.50); Red Cell Distribution Width 13.3 % (11.0-16.0)
[2023-04-10 12:01] LABS: Alanine Aminotransferase 16 U/L (0-31); Alkaline Phosphatase 77 U/L (39-117); Anion Gap 11 (12-20); Aspartate Amino Transferase 18 U/L (5-31); Bilirubin Total 0.6 mg/dL (0.0-1.0); Blood Urea Nitrogen 12 mg/dL (9-16); Calcium 9.8 mg/dL (8.4-10.2); Carbon Dioxide 31 mmol/L (22-29); Chloride 104 mmol/L (96-108); Cholesterol 172 mg/dL; Estimated Glomerular Filt Rate > 60; Glucose Fasting 83 mg/dL (60-99); HDL Cholesterol 70 mg/dL; LDL Cholesterol Calculated 83 mg/dl; Potassium 4.1 mmol/L (3.3-5.1); Sodium 142 mmol/L (135-145); Total Protein 6.9 g/dL (6.5-8.0); Triglycerides 97 mg/dL
[2023-04-10 12:22] LABS: TSH reflex Free T4 0.51 uIU/mL (0.32-4.0)
== END 2023-04-10 08:59 | disposition home or self-care (01) ==
LOC: HO.HMGCLDS 08:58
PROVIDERS: PCP Internal Medicine; Visit Provider Internal Medicine
DX: Z00.00 Encounter for general adult medical examination without abnormal findings (principal); E78.5 Hyperlipidemia, unspecified; E03.9 Hypothyroidism, unspecified
CPT/HCPCS: 36415; 80053; 80061; 84443; 85025

== ENCOUNTER 2023-04-20 07:48 | Day surgery (SDC) | payer OTHER, SELFPAY ==
[2023-04-15 16:10] VITALS: BMI 20.1
--- NOTE | 2023-04-17 10:33 | P.CONAN_ITS ---
Documented by User: Leda Bruce NP 04/17/23 10:34 HPI - Anesthesia Eval Consult details Narrative: 62yo F for Colonoscopy Methotrexate for RA PMFSH Active Problems Active Problems: All Active Problems (Updated 02/19/23 @ 08:43 by Tiffanie Hernandez MD) Diverticulosis (Acute) Tubulovillous adenoma of colon (Acute) Hypothyroid (Acute) Dyspnea on exertion (Acute) Lung nodule (Acute) Osteoporosis (Acute) Rheumatoid arthritis (Acute) Hyperlipidemia (Acute) Annual physical exam (Acute) Chronic asthma (Acute) COVID-19 (Acute) Past Medical History Medical History (Updated 02/19/23 @ 08:43 by Tiffanie Hernandez MD) Allergic rhinitis Annual physical exam Chronic asthma COVID-19 vaccine series completed History of COVID-19 Hyperlipidemia Osteoarthritis Osteoporosis Rheumatoid arthritis Thyroid nodule Family History Family History Mother No problems noted. Family history of problems with anesthesia: No Surgical History Surgical History H/O colonoscopy H/O: hysterectomy History of Problems with Anesthesia: No Social History Social History Household Members: Spouse and Children Housing: House Are you a primary memory care program director to a significant other at home: No Do you presently have visiting nurse or other home services: No Alcohol intake: never Patient Tobacco Use Status: Never used Tobacco e-Cigarette/Vaping Use: Never Used Second Hand Smoke Exposure: No Use of substances other than those prescribed or required for medical reasons: No Are you DNR?: No Advance Directives: No Advance Directives Information Provided: Yes service: No Current occupational status: employed Cognitive needs: No Hearing needs: No Vision needs: Yes Meds Allergies Allergy/AdvReac Type Severity Reaction Status Date / Time aspirin Allergy Intermediate SOB Verified 02/19/23 08:02 ibuprofen [Advil] Allergy Intermediate SOB Verified 02/19/23 08:02 levofloxacin [Levaquin] Allergy Unknown pt does Verified 02/19/23 08:02 not remember Home Medications Medication Instructions Recorded Confirmed Last Taken Type alendronate 70 mg tablet 70 mg PO PARSON 01/04/21 04/20/23 07/27/22 History ascorbate calcium (vitamin C) 500 1,000 mg PO DAILY 02/13/21 04/20/23 07/29/22 History mg tablet cholecalciferol (vitamin D3) 25 25 mcg PO DAILY 02/13/21 04/20/23 07/29/22 History mcg (1,000 unit) tablet folic acid 1 mg tablet 1 mg PO DAILY 02/13/21 04/20/23 07/29/22 History methotrexate sodium 2.5 mg tablet 10 mg PO SA 02/13/21 04/20/23 07/26/22 History adalimumab 40 mg/0.4 mL See Rx Instructions subcut .COMPLEX 01/06/22 04/20/23 07/25/22 History subcutaneous pen kit (Humira(CF) Pen) Exam Exam Date and Time: April 17, 2023 1033 Height,Weight and Vital Signs: Height 5 ft 4 in Weight 53.07 kg Pertinent Lab Results Pertinent Lab Results: Laboratory Tests 04/10/23 04/10/23 09:14 09:14 WBC 6.0 Hgb 13.7 Hct 43.1 Plt Count 247 Sodium 142 Potassium 4.1 Chloride 104 Carbon Dioxide 31 H BUN 12 Creatinine 0.73 Assessment and Plan Assessment Anesthesia Assessment: Chart Reviewed Final Anesthetic Review Family History of Problems with Anesthesia: No History of Problems with Anesthesia: No Documented by User: Mariely Felipe MD 04/20/23 08:26 [facility] Past Medical History Medical History (Updated 02/19/23 @ 08:43 by Tiffanie Hernandez MD) Allergic rhinitis Annual physical exam Chronic asthma COVID-19 vaccine series completed History of COVID-19 Hyperlipidemia Osteoarthritis Osteoporosis Rheumatoid arthritis Thyroid nodule Family History Family History Mother No problems noted. Surgical History Surgical History H/O colonoscopy H/O: hysterectomy Social History Social History Household Members: Spouse and Children Housing: House Are you a primary memory care program director to a significant other at home: No Do you presently have visiting nurse or other home services: No Alcohol intake: never Patient Tobacco Use Status: Never used Tobacco e-Cigarette/Vaping Use: Never Used Second Hand Smoke Exposure: No Use of substances other than those prescribed or required for medical reasons: No Are you DNR?: No Advance Directives: No Advance Directives Information Provided: Yes service: No Current occupational status: employed Cognitive needs: No Hearing needs: No Vision needs: Yes Meds Allergies Allergy/AdvReac Type Severity Reaction Status Date / Time aspirin Allergy Intermediate SOB Verified 02/19/23 08:02 ibuprofen [Advil] Allergy Intermediate SOB Verified 02/19/23 08:02 levofloxacin [Levaquin] Allergy Unknown pt does Verified 02/19/23 08:02 not remember Home Medications Medication Instructions Recorded Confirmed Last Taken Type alendronate 70 mg tablet 70 mg PO PARSON 01/04/21 04/20/23 07/27/22 History ascorbate calcium (vitamin C) 500 1,000 mg PO DAILY 02/13/21 04/20/23 07/29/22 History mg tablet cholecalciferol (vitamin D3) 25 25 mcg PO DAILY 02/13/21 04/20/23 07/29/22 History mcg (1,000 unit) tablet folic acid 1 mg tablet 1 mg PO DAILY 02/13/21 04/20/23 07/29/22 History methotrexate sodium 2.5 mg tablet 10 mg PO SA 02/13/21 04/20/23 07/26/22 History adalimumab 40 mg/0.4 mL See Rx Instructions subcut .COMPLEX 01/06/22 04/20/23 07/25/22 History subcutaneous pen kit (Humira(CF) Pen) Exam Airway Mallampati Class: II TM Dist: >3cm Neck ROM: Full Denture: Upper and Lower Heart: rrr Lungs: cta Assessment and Plan Assessment Anesthesia Assessment: Anesthesia Plan Discussed Final Anesthetic Review NPO: Yes ASA Class: II Final Preanesthetic Review: No Changes in Pt Med Stat, Meds/Allgs Chart Reviewed and Consent Obtained/Reviewed Patient Risk: Intermediate Procedure Risk: Intermediate Anesthetic Plan Anesthetic Plan: MAC: Disposition: Standard PACU
[2023-04-20 08:12] VITALS: BMI 20.1
[2023-04-20 08:15] VITALS: BP 110/67; PULSE 84; RESP 18; TEMP 37.3; O2SAT 96
[2023-04-20 08:19] VITALS: BMI 20.1
[2023-04-20] MEDS: Lactated Ringers 1,000 ML 100 ML IVCONT (08:39)
--- NOTE | 2023-04-20 09:19 | MHC.SHP ---
Pre-Procedural Eval Section A Date of Service: 04/20/23 The patient is an INPATIENT: No The History & Physical has been completed within 30 days and I have reviewed it.: No Section B Chief Complaint: Screening, follow-up of multiple colon polyps Relevant Family History (Specify if Yes): No Relevant Social History: None Present Medications: see Short Stay Collaborative assessment Medical History: Significant History (Chronic asthma Cough COVID-19 vaccine series completed Headache History of COVID-19 Hyperlipidemia Osteoarthritis Osteoporosis Rheumatoid arthritis) History of Previous Operations: Relevant previous surgery/procedure and date(s) (H/O colonoscopy H/O: hysterectomy) Allergies: Allergies Allergy/AdvReac Type Severity Reaction Status Date / Time aspirin Allergy Intermediate SOB Verified 02/19/23 08:02 ibuprofen [Advil] Allergy Intermediate SOB Verified 02/19/23 08:02 levofloxacin [Levaquin] Allergy Unknown pt does Verified 02/19/23 08:02 not remember Review of Systems Sugical H&P ROS: Negative: Constitution, Cardiovascular, Respiratory and Gastrointestinal Exam Surgical H&P Exam: Normal: Heart, Normal: Lungs, Normal: Extremities and Normal: Abdomen Plan Diagnosis/Plan: Unchanged I have reviewed the history and physical and performed a pertinent physical examination on my patient. No changes have occurred unless specified. Time Spent With Patient Time: Total time managing care of this patient today ____ minutes.
--- NOTE | 2023-04-20 09:22 | P.OP_ITS ---
Operative Note Operative Note Date of Service: 04/20/23 Narrative: COLONOSCOPY TILL CECUM WITH BIOPSIES, SNARE POLYP, SUBMUCOSAL INJECTION AND HEMOCLIP PLACEMENT Pre-op diagnosis: COLON CANCER SCREENING, HISTORY OF COLON POLYPS Post-op diagnosis:? Colon polyps, diverticulosis, hemorrhoids Endoscopist:? Edwar Osuna MD Anesthesia:?MAC Consent: Indications for the procedure and potential complications of bleeding, perforation, reaction to medications and missed diagnosis were discussed with the patient and informed consent was obtained. Instrument: Olympus PCF H 190 L variable stiffness pediatric colonoscope Monitoring: Vital signs and clinical assessment, intermittent blood pressure monitoring, continuous EKG monitoring, Pulse oximetry and Carbon Dioxide monitoring were done throughout the procedure. Please see anesthesia flowsheet. Colon withdrawl time was 28 minutes. Procedure: The patient was placed in the left lateral decubitis position and pre-procedure medications were administered. After a digital rectal examination of the ano-rectum, the video colonoscope was inserted into the rectum and advanced through the colon to the cecum. The colonoscope was slowly withdrawn in a retrograde panoramic fashion and the colon mucosa was carefully examined including a retroflexed view of the rectum. Findings and interventions are described below. Procedure Difficulty: Without difficulty Findings: Terminal Ileum: Not evaluated Cecum: A 1.5 cms flat polyp (likely at the site of past polypectomy). Polyp was raised with 6 cc of Eleview and removed with a hot stiff snare. Polypectomy site was closed with 1 hemoclip. A 3-4 mm sessile polyp removed with a cold biopsy Ascending Colon: Normal Transverse Colon: A 10 mm sessile polyp - removed with a hot snare Descending Colon: Moderate diverticulosis Sigmoid Colon: Two 8 to 10 mm sessile polyp - removed with a hot snare. Moderate diverticulosis Rectum: Normal Ano-rectum: Moderate internal hemorrhoids Colon preparation: Good after copious irrigation and fair in the left colon - due to undigested vegetable matter which could not be suctioned Impression and Post Procedure Diagnosis: Colonoscopy Findings: One small and four medium sized polyps removed Moderate diverticulosis seen in the left colon Moderate hemorrhoids on retroflexed exam. Plan: Await pathology results Patient has an appointment on 05/18/23 in the GI Clinic with [facility]. Repeat Colonoscopy interval based on path results - in 2 years if polyps are ad enomatous (and due to a hx of multiple colon polyps on past colonoscopy and fair prep in the left colon. Above findings were reviewed with the patient and colon polyps handouts was given in the discharge area
[2023-04-20 10:06] VITALS: BP 112/64; PULSE 83; RESP 16; TEMP 36.3; O2SAT 95
[2023-04-20 10:21] VITALS: BP 112/68; PULSE 77; RESP 16; TEMP 36.4; O2SAT 95
== END 2023-04-20 10:57 | disposition home or self-care (01) ==
PROVIDERS: PCP Internal Medicine; Visit Provider Internal Medicine Gastroenterology
PROC: 0DJD8ZZ Inspection of Lower Intestinal Tract, Via Natural or Artificial Opening Endoscopic (ICD-10-PCS; CPT 45378; principal; 2023-04-20 09:20)
DX: Z12.11 Encounter for screening for malignant neoplasm of colon (principal); Z86.010 Personal history of colon polyps; D12.0 Benign neoplasm of cecum; D12.5 Benign neoplasm of sigmoid colon; D12.3 Benign neoplasm of transverse colon; K57.30 Diverticulosis of large intestine without perforation or abscess without bleeding; K64.8 Other hemorrhoids; E78.5 Hyperlipidemia, unspecified; E04.1 Nontoxic single thyroid nodule; J45.909 Unspecified asthma, uncomplicated; M81.0 Age-related osteoporosis without current pathological fracture; M06.9 Rheumatoid arthritis, unspecified; E03.9 Hypothyroidism, unspecified; Z79.899 Other long term (current) drug therapy; Z79.1 Long term (current) use of non-steroidal anti-inflammatories (NSAID); Z88.8 Allergy status to other drugs, medicaments and biological substances; Z88.1 Allergy status to other antibiotic agents; Z86.16 Personal history of COVID-19
CPT/HCPCS: 45385; 45380; 45381; 88305

== ENCOUNTER 2023-05-21 10:05 | Outpatient (AMB) | payer OTHER, SELFPAY ==
--- NOTE | 2023-05-21 10:19 | A.OFFVIS_ITS ---
Intake Vital Signs 05/21/23 10:22 Height 5 ft 4 in Weight 117 lb BMI 20.1 BP 105/53 L Blood Pressure Location Lt brachial Position Sitting Pulse 75 Intake Visit Reasons: S/P [place] Intake Note: Patient follow up for diverticulosis and colonoscopy results. Patient denies ay GI issues. Manager Skilled Required: No Accompanied by: Son Allergies aspirin Allergy (Intermediate, Verified 05/21/23 10:19) SOB ibuprofen [Advil] Allergy (Intermediate, Verified 05/21/23 10:19) SOB levofloxacin [Levaquin] Allergy (Unknown, Verified 05/21/23 10:19) pt does not remember Medication List - Last Reconciled 05/21/23 by Rhonda Lopes PA-C adalimumab (Humira(CF) Pen) inject one - 40 mg/0.4 mL pen every 2 weeks subcut Advair HFA 230-21 mcg/actuation (fluticasone propion-salmeterol) 2 puffs inhalation BID NS albuterol sulfate 90 mcg/actuation (ProAir HFA) 2 puffs inhalation Q4H PRN alendronate 70 mg PO PARSON ascorbate calcium (vitamin C) 1,000 mg PO DAILY cholecalciferol (vitamin D3) 25 mcg PO DAILY fluticasone propionate 50 mcg/actuation 2 sprays intranasal DAILY folic acid 1 mg PO DAILY levothyroxine 88 mcg PO DAILY methotrexate sodium 10 mg PO SA montelukast 10 mg PO DAILY rosuvastatin (Crestor) 10 mg PO DAILY sertraline 25 mg PO DAILY HPI HPI Comments History of Present Illness Details A 62-year-old female follows up after recent repeat colonoscopy for multiple tubulovillous adenoma in October 2022. Colonoscopy with once again polypectomy of several adenomas. Reviewed procedure report and pathology-she had opportunity to ask many questions Her son is present She has no GI complaints No nausea, vomiting hematemesis, hematochezia fever chills PFSH Medical History (Updated 05/21/23 @ 12:22 by Rhonda Lopes PA-C) Allergic rhinitis Annual physical exam Chronic asthma COVID-19 vaccine series completed History of COVID-19 Hyperlipidemia Osteoarthritis Osteoporosis Rheumatoid arthritis Thyroid nodule Tubular adenoma Surgical History H/O colonoscopy H/O: hysterectomy Family History Mother No problems noted. Social History Household Members: Spouse and Children Housing: House Are you a primary progressive care unit registered nurse to a significant other at home: No Do you presently have visiting nurse or other home services: No Alcohol intake: never Patient Tobacco Use Status: Never used Tobacco e-Cigarette/Vaping Use: Never Used Second Hand Smoke Exposure: No service: No Current occupational status: employed Cognitive needs: No Hearing needs: No Vision needs: Yes Review of Systems Const All systems reviewed & are unremarkable except as noted in HPI and below Physical Exam Vital Signs: Last Vital Signs Pulse 75 05/21/23 10:22 BP 105/53 L 05/21/23 10:22 BMI result Body Mass Index 20.1 Const General: cooperative, healthy appearing, comfortable and no acute distress Orientation/consciousness: patient oriented x3 Limitations: no limitations Neuro General: patient oriented x3 Psych Appearance: grossly normal and well kempt Mental Status: mental status grossly normal Speech and movement: Normal speech and movement present and Clear speech present Affect: normal affect Attitude: cooperative Thought process: Normal thought process present Thought content: Normal thought content present Insight: Good insight present (Psych) Judgement: Good judgement present (Psych) Results Reviewed Results Reviewed: 03/2023- Impression and Post Procedure Diagnosis: Colonoscopy Findings: One small and four medium sized polyps removed Moderate diverticulosis seen in the left colon Moderate hemorrhoids on retroflexed exam. Plan: Await pathology results Patient has an appointment on 05/18/23 in the GI Clinic with [facility]. Repeat Colonoscopy interval based on path results - in 2 years if polyps are adenomatous (and due to a hx of multiple colon polyps on past colonoscopy and fair prep in the left colon. Above findings were reviewed with the patient and colon polyps handouts was given in the discharge area Name:?Yeison Duran Age/Sex: 62/F Attending: Edwar Osuna MD : 1960 Submitted by: Edwar Osuna MD Copies to: Tiffanie Hernandez MD MR #: [id number] ? Status: [facility] Collected: 04/20/23 Location: [facility] Received: 04/20/23 Diagnosis A.? Cecum, polypectomies (2): - Tubular adenoma; negative for high-grade dysplasia or carcinoma. - Colonic mucosa with mild surface hyperplastic changes. B.? Colon, transverse, polypectomy:? Hyperplastic mucosal polyp. C.? Colon, sigmoid, polypectomies (2): - Tubular adenoma; negative for high-grade dysplasia or carcinoma. - Hyperplastic mucosal polyp. Clinical History Pre-Op Dx:? Colon cancer screening, hx/o colon polyps Post-Op Dx: Diverticulosis, colon polyps 10/2022 Name:?Yeison Duran Age/Sex: 62/F Attending: Edwar Osuna MD : 1960 Submitted by: Edwar Osuna MD Copies to: Tiffanie Hernandez MD MR #: [id number] ? Status: [facility] Collected: 11/17/22 Location: [facility] Received: 11/18/22 Diagnosis A.? Colon, three cecal polyps:? Tubular and tubulovillous adenomas (multiple pieces involved, cannot evaluate margins); negative for high-grade dysplasia and carcinoma. B.? Colon, cecal polyp #2:? Tubulovillous adenoma (fragmented, cauterized base is free of dysplasia); negative for high-grade dysplasia and carcinoma.? C.? Colon, ascending, two polyps:? Tubular adenoma (one), completely excised; negative for high-grade dysplasia and carcinoma, and a fragment of colonic mucosa with no adenomatous dysplasia. D.? Colon, transverse, five polyps:? Tubular adenomas (five); negative for high- grade dysplasia and carcinoma. E.? Colon, sigmoid, polyp:? Tubulovillous adenoma, appears excised; negative for high-grade dysplasia and carcinoma. Clinical History Pre-Op Dx:? Screening Post-Op Dx: Colon polyps, diverticulosis, hemorrhoids Assessment & Plan Assessment & Plan (1) Tubular adenoma: Code(s): D36.9 - Benign neoplasm, unspecified site (2) Tubulovillous adenoma of colon: Comment: MULTIPLE COLONIC POLYPS. Reviewed procedure report and pathology Repeat colonoscopy@ 6 months- revealed several adenomas- Code(s): D12.6 - Benign neoplasm of colon, unspecified Plan: Review follow-up plan, she has a good understanding (3) Diverticulosis: Code(s): K57.90 - Diverticulosis of intestine, part unspecified, without perforation or abscess without bleeding Plan: ER protocol HFD Patient Instructions: Repeat asymptomatic colonoscopy in 2 years-sooner if index Diverticulosis/diverticulitis year protocol review Maintain high-fiber diet, fiber supplements would be beneficial Avoid straining with hemorrhoids Encouraged to call questions or concerns Coding Level of Care Code Est Pt Level 3 (93984) Diagnoses Tubular adenoma D36.9 Tubulovillous adenoma of colon D12.6 Diverticulosis K57.90 Time Spent (min) 30 Comment Son present, helps with interpreting
[2023-05-21 10:22] VITALS: BP 105/53; PULSE 75; BMI 20.1
== END 2023-05-21 11:13 | disposition home or self-care (01) ==
PROVIDERS: PCP Internal Medicine; Visit Provider Physician Assistant
DX: D36.9 Benign neoplasm, unspecified site (principal); D12.6 Benign neoplasm of colon, unspecified; K57.90 Diverticulosis of intestine, part unspecified, without perforation or abscess without bleeding
CPT/HCPCS: 99213

== ENCOUNTER → 2023-05-21 10:05 | Outpatient (BNVA) | payer OTHER, SELFPAY | PROVIDERS: PCP Internal Medicine; Visit Provider Physician Assistant ==

== ENCOUNTER 2024-02-23 10:25 | Outpatient (REF) | payer OTHER, SELFPAY ==
[2024-02-23 13:19] LABS: Appearance Urine Clear; Color Urine Yellow; Glucose Urine UA Negative (Negative); Leukocyte Esterase Urine Small (1+) (Negative); Nitrite Urine Negative (Negative); PH 7.5 (5.0-9.0); UMIC TRIGGER UA YES; Urine Blood Trace (Negative); Urine Ketones Negative (Negative); Urine Protein Negative (Neg-Trace)
[2024-02-23 13:23] LABS: MANUAL DIFF FLAG NO
[2024-02-23 13:26] LABS: Bacteria Urine None Seen (None Seen); Hyaline Casts Urine 0-2 /LPF (0-2); RBC Urine >20 /HPF (0-2); Squamous Epithelial Cell Urine 0-2 /HPF (0-2)
[2024-02-23 13:27] LABS: Basophils Absolute Auto 0.1 X10*3/uL (0.0-0.2); Basophils Percent Auto 0.8 % (0-2); Eosinophils Absolute Auto 0.4 X10*3/uL (0.0-0.4); Eosinophils Percent Auto 6.2 % (0-4); Hematocrit 42.1 % (37.0-47.0); Hemoglobin 13.8 g/dl (12.0-16.0); Imm Gran Abs Auto 0.01 X10*3/uL (0.00-0.03); Imm Gran Pct Auto 0.2 % (0.0-0.4); Lymphocytes Absolute Auto 1.9 X10*3/uL (1.2-4.9); Lymphocytes Percent Auto 30.5 % (20-40); Mean Corpuscular HGB Conc 32.8 g/dl (31.0-35.0); Mean Corpuscular Hemoglobin 30.9 pg (27.0-33.0); Mean Corpuscular Volume 94.4 fL (80.0-98.0); Mean Platelet Volume 9.8 fL (9.4-12.3); Monocytes Absolute Auto 0.8 X10*3/uL (0.1-1.2); Monocytes Percent Auto 13.4 % (2-11); Neutrophils Absolute Auto 3.1 x10*3/uL (2.0-8.3); Neutrophils Percent Auto 48.9 % (45-73); Platelet Count 248 X10*3/uL (160-400); Red Blood Count 4.46 X10*6/uL (4.20-5.50); Red Cell Distribution Width 13.5 % (11.0-16.0); White Blood Count 6.3 X10*3/uL (4.8-10.8)
[2024-02-23 14:16] LABS: Alanine Aminotransferase 27 U/L (0-31); Albumin Level 4.1 g/dL (3.5-5.0); Alkaline Phosphatase 62 U/L (39-117); Anion Gap 11 (12-20); Aspartate Amino Transferase 25 U/L (5-31); Bilirubin Total 0.4 mg/dL (0.0-1.0); Blood Urea Nitrogen 10 mg/dL (9-16); Calcium 9.3 mg/dL (8.4-10.2); Carbon Dioxide 28 mmol/L (22-29); Chloride 107 mmol/L (96-108); Cholesterol 184 mg/dL (<200); Estimated Glomerular Filt Rate > 60; Glucose Fasting 96 mg/dL (60-99); HDL Cholesterol 69 mg/dL (>40); LDL Cholesterol Calculated 93 mg/dL (<100); Potassium 3.7 mmol/L (3.3-5.1); Sodium 142 mmol/L (135-145); Triglycerides 111 mg/dL (<150)
[2024-02-23 14:17] LABS: TSH reflex Free T4 1.05 uIU/mL (0.32-4.0); Vitamin D 25-OH Total 39.4 ng/mL (>30)
== END 2024-02-23 10:26 | disposition home or self-care (01) ==
LOC: HO.HMGCLDS 10:25
PROVIDERS: PCP Internal Medicine; Visit Provider Internal Medicine
DX: E03.9 Hypothyroidism, unspecified (principal); M81.0 Age-related osteoporosis without current pathological fracture; M06.9 Rheumatoid arthritis, unspecified; E78.5 Hyperlipidemia, unspecified; Z00.00 Encounter for general adult medical examination without abnormal findings
CPT/HCPCS: 36415; 80053; 80061; 81001; 82306; 84443; 85025

== ENCOUNTER 2024-02-29 07:58 | Outpatient (AMB) | payer OTHER, SELFPAY ==
[2024-02-29 08:17] VITALS: BP 108/64; PULSE 71; O2SAT 95; BMI 20.6
--- NOTE | 2024-02-29 08:17 | MHC.PC.OV ---
Vital Signs 02/29/24 08:17 Height 5 ft 4 in Weight 120 lb BMI 20.6 BP 108/64 Blood Pressure Location Lt brachial Position Sitting Pulse 71 Pulse Source Pulse Oximeter Pulse Oximetry (%) 95 Oxygen Delivery Method Room Air Intake Visit Reasons: PE Intake Note: Pt is here today for PE. Allergies aspirin Allergy (Intermediate, Verified 02/29/24 08:42) SOB ibuprofen [Advil] Allergy (Intermediate, Verified 02/29/24 08:42) SOB levofloxacin [Levaquin] Allergy (Unknown, Verified 02/29/24 08:42) pt does not remember Medication List - Last Reconciled 02/29/24 by Tiffanie Hernandez MD adalimumab (Humira(CF) Pen) inject one - 40 mg/0.4 mL pen every 2 weeks subcut Advair HFA 230-21 mcg/actuation (fluticasone propion-salmeterol) 2 puffs inhalation BID NS albuterol sulfate 90 mcg/actuation (ProAir HFA) 2 puffs inhalation Q4H PRN alendronate 70 mg PO PARSON ascorbate calcium (vitamin C) 1,000 mg PO DAILY cholecalciferol (vitamin D3) 25 mcg PO DAILY fluticasone propionate 50 mcg/actuation 2 sprays intranasal DAILY folic acid 1 mg PO DAILY levothyroxine 88 mcg PO DAILY methotrexate sodium 10 mg PO SA montelukast 10 mg PO DAILY rosuvastatin (Crestor) 10 mg PO DAILY sertraline 25 mg PO DAILY Tobacco use date assessed: 02/29/24 Dental Screening Dental Screen Date: 02/29/24 Did you have a dental visit in the last 12 months?: Yes Did you have a dental problem in the last 6 months where you did not have access to dental care?: No Was dental information given to patient?: Patient has dentist HPI PE HPI Details PATIENT PRESENTS FOR PHYSICAL. SHE IS GOING TO [place] IN MARCH. [facility] Medical History (Updated 02/29/24 @ 09:28 by Tiffanie Hernandez MD) History of COVID-19 COVID-19 vaccine series completed Osteoporosis Annual physical exam Hyperlipidemia Osteoarthritis Rheumatoid arthritis Thyroid nodule Chronic asthma Allergic rhinitis Surgical History H/O: hysterectomy H/O colonoscopy Family History Mother No problems noted. Social History Household Members: Spouse and Children Housing: House Are you a primary regular senior care provider to a significant other at home: No Do you presently have visiting nurse or other home services: No Alcohol intake: never Patient Tobacco Use Status: Never used Tobacco e-Cigarette/Vaping Use: Never Used Second Hand Smoke Exposure: No service: No Current occupational status: employed Cognitive needs: No Hearing needs: No Vision needs: Yes Questionnaire PHQ-9 Over the last 2 weeks, how often have you been bothered by any of the following problems? 1. Little interest or pleasure in doing things: not at all 2. Feeling down, depressed, or hopeless: not at all 3. Trouble falling or staying asleep, or sleeping too much: several days 4. Feeling tired or having little energy: several days 5. Poor appetite or overeating: not at all 6. Feeling bad about yourself - or that you are a failure or have let yourself or your family down: not at all 7. Trouble concentrating on things, such as reading the newspaper or watching television: not at all 8. Moving or speaking so slowly that other people could have noticed. Or the opposite - being so fidgety or restless that you have been moving around a lot more than usual: not at all 9. Thoughts that you would be better off or of hurting yourself in some way: not at all Total score: 2 Depression Screening Interpretation: Negative Depression Screening Done: Yes Source: Developed by Drs. Jaskaran Parikh, Stefany Fuchs, Gautam Leos and colleagues, with an educational bartolome from [employer]. Thrive Questionnaire Date Thrive assessed: 02/29/24 I am a: Patient What is your living situation today?: I have a steady place to live Within the past 12 months, did the food you bought not last and you didn't have the money to get more?: Never true Within the past 12 months, did you worry whether your food would run out before you got money to buy more?: Never true Do you have trouble paying for medicines?: No Do you have trouble getting transportation to medical appointments?: No Do you have trouble paying your heating and electricity bill?: No Do you have trouble taking care of your child, family member or friend?: No Do you have trouble with day-to-day activities such as bathing, preparing meals, shopping, managing finances, etc.?: No Are you currently unemployed and looking for a job?: No Are you interested in more education?: No Please select the resources that you would like help with: None Currently or been in a relationship where the following occur: no concerns reported THRIVE Score: 0 AUDIT C Alcohol Use Questionnaire (AUDIT-C) 1. How often do you have a drink containing alcohol?: Never 3. How often do you have six or more drinks on one occasion?: Never Total Score: 0 DAVID-7 AMB Questionnaire DAVID-7 Date DAVID - 7 assessed: 02/29/24 Feeling nervous, anxious, or on edge: 0 = Not at all Not being able to stop or control worryin = Not at all Worrying too much about different things: 0 = Not at all Trouble relaxin = Not at all Being so restless that it is hard to sit still: 0 = Not at all Becoming easily annoyed or irritable: 0 = Not at all Feeling afraid as if something awful might happen: 0 = Not at all Total DAVID-7 score (0-4 normal; 5-9 mild; 10-14 moderate; 15-21 severe): 0 Source: Developed by Drs. Jaskaran Parikh, Stefany Fuchs, Gautam Leos and colleagues, with an educational bartolome from [employer]. Review of Systems Const All systems reviewed & are unremarkable except as noted in HPI and below ENT Reports no additional complaints Card Reports no additional complaints Resp Reports no additional complaints GI Reports no additional complaints Physical exam (Primary Care) Vital Signs: Last Vital Signs Pulse 71 02/29/24 08:17 BP 108/64 02/29/24 08:17 Pulse Ox 95 02/29/24 08:17 Oxygen Delivery Method Room Air 02/29/24 08:17 BMI result Body Mass Index 20.6 Tobacco/Smoking Status: Tobacco use Status Tobacco use date assessed 02/29/24 02/29/24 08:19 Patient Tobacco Use Status Never used Tobacco 02/29/24 08:19 e-Cigarette/Vaping Use Never Used 02/29/24 08:19 PHQ-9: PHQ-9 Score PHQ-9: Total score 2 02/29/24 08:45 Depression Screening Interpretation: Negative Thrive Assessment: Date of Thrive Assessment Date Thrive assessed 02/29/24 02/29/24 08:45 Currently or been in a relationship where the following occur: no concerns reported Const General: no acute distress HENMT Head: Yes normal to inspection Ears: hearing grossly normal bilaterally Eyes General: appearance normal, both eyes and all related structures Neck Neck: Yes no lymphadenopathy and Yes supple Resp Effort & Inspection: normal respiratory effort Auscultation: clear to auscultation bilaterally Cardio Rhythm: regular rhythm Heart sounds: S1 normal heart sound present and S2 normal heart sound present GI Inspection: Yes normal to inspection Palpation (GI): Soft to palpation Percussion: Yes normal to percussion Auscultation: normal bowel sounds Assessment and Plan Assessment & Plan (1) Lung nodule: Comment: [address] 07/28/22, repeat in 1 year ( history of secondhand smoking in childhood) Code(s): R91.1 - Solitary pulmonary nodule Plan: Repeat CT of chest to follow-up on the lung nodule (2) Microscopic hematuria: Comment: Negative workup by Urology Code(s): R31.29 - Other microscopic hematuria Plan: Repeat UA and urine cytology (3) Osteoporosis: Comment: DEXA 04/14 T score -4.0 lumbar, -1.7 femoral neck, started alendronate February 10, f/u Arthritis tx, Code(s): M81.0 - Age-related osteoporosis without current pathological fracture Plan: Follow-up with rheumatology, patient will obtain a copy of the most recent DEXA (4) Rheumatoid arthritis: Comment: of hands, on Humira and methotrexate Code(s): M06.9 - Rheumatoid arthritis, unspecified Plan: Follow-up with rheumatology (5) Annual physical exam: Code(s): Z00.00 - Encounter for general adult medical examination without abnormal findings Plan: Well-balanced diet regular physical activity discussed with the patient. She is up-to-date with the mammogram and colonoscopy (6) Chronic asthma: Comment: asthma well controlled, uses inhalers as directed-follows PCP Code(s): J45.909 - Unspecified asthma, uncomplicated Plan: Continue Advair and montelukast (7) Hypothyroid: Code(s): E03.9 - Hypothyroidism, unspecified Plan: Continue levothyroxine Orders: Orders CT chest wo IV con Today R91.1 - Solitary pulmonary nodule UA w Microscopic Today R31.29 - Other microscopic hematuria Comprehensive [place]. Panel Fast 1 Year E03.9 - Hypothyroidism, unspecified, M81.0 - Age-related osteoporosis without current pathological fracture, Z00.00 - Encounter for general adult medical examination without abnormal findings UA w Microscopic 1 Year E03.9 - Hypothyroidism, unspecified, M81.0 - Age-related osteoporosis without current pathological fracture, Z00.00 - Encounter for general adult medical examination without abnormal findings Urine Cytology Today R31.29 - Other microscopic hematuria Complete Blood Count Auto Diff 1 Year E03.9 - Hypothyroidism, unspecified, M81.0 - Age-related osteoporosis without current pathological fracture, Z00.00 - Encounter for general adult medical examination without abnormal findings Lipid Panel 1 Year E03.9 - Hypothyroidism, unspecified, M81.0 - Age-related osteoporosis without current pathological fracture, Z00.00 - Encounter for general adult medical examination without abnormal findings TSH reflex Free T4 1 Year E03.9 - Hypothyroidism, unspecified, M81.0 - Age-related osteoporosis without current pathological fracture, Z00.00 - Encounter for general adult medical examination without abnormal findings Vitamin D 25-OH (D2 and D3) 1 Year E03.9 - Hypothyroidism, unspecified, M81.0 - Age-related osteoporosis without current pathological fracture, Z00.00 - Encounter for general adult medical examination without abnormal findings Medications: Refilled albuterol sulfate 90 mcg/actuation (ProAir HFA) 2 puffs inhalation Q4H PRN 8.5 grams 5RF shortness of breath or wheezing Discontinued sertraline Discontinued Reason: Doctor's Order 25 mg PO DAILY 90 tabs 3RF Coding Level of Care Code Est Pt Prev Care 40-64y(06402) Diagnoses Lung nodule R91.1 Microscopic hematuria R31.29 Osteoporosis M81.0 Rheumatoid arthritis M06.9 Annual physical exam Z00.00 Chronic asthma J45.909 Hypothyroid E03.9
== END 2024-02-29 09:32 | disposition home or self-care (01) ==
PROVIDERS: Visit Provider Internal Medicine
DX: Z00.00 Encounter for general adult medical examination without abnormal findings (principal); M06.9 Rheumatoid arthritis, unspecified; R91.1 Solitary pulmonary nodule; R31.29 Other microscopic hematuria; M81.0 Age-related osteoporosis without current pathological fracture; J45.909 Unspecified asthma, uncomplicated; E03.9 Hypothyroidism, unspecified
CPT/HCPCS: 99396

== ENCOUNTER 2024-02-29 09:06 | Outpatient (REF) | payer OTHER, SELFPAY ==
[2024-02-29 10:11] LABS: Urine Cytology See Pathology rpt
[2024-02-29 11:03] LABS: Appearance Urine Clear; Color Urine Yellow; Glucose Urine UA Negative (Negative); Leukocyte Esterase Urine Small (1+) (Negative); Nitrite Urine Negative (Negative); PH 5.5 (5.0-9.0); UMIC TRIGGER UA YES; Urine Blood Moderate (2+) (Negative); Urine Ketones Negative (Negative); Urine Protein Negative (Neg-Trace)
[2024-02-29 11:14] LABS: Bacteria Urine None Seen (None Seen); Hyaline Casts Urine 0-2 /LPF (0-2); Squamous Epithelial Cell Urine 0-2 /HPF (0-2); WBC Urine 0-5 /HPF (0-5)
== END 2024-02-29 09:07 | disposition home or self-care (01) ==
LOC: HO.HMGCLDS 09:06
PROVIDERS: PCP Internal Medicine; Visit Provider Internal Medicine
DX: R31.29 Other microscopic hematuria (principal)
CPT/HCPCS: 81001; 88112

== ENCOUNTER 2024-04-25 07:09 | Outpatient (REF) | payer OTHER, SELFPAY ==
--- NOTE | ~2024-04-25 | CT_ITS ---
EXAMINATION: CT CHEST WITHOUT CONTRAST CLINICAL INFORMATION: Follow up pulmonary nodule. COMPARISON: CTA chest 07/29/2022. TECHNIQUE: Multidetector volumetric CT imaging of the chest was done. Axial MIP volume rendering provided. Sagittal and coronal reformatted images were obtained. This CT examination was performed using dose optimization techniques as appropriate, variously including the following: *Automated exposure control *Adjustment of mA and/or kV according to patient size (this includes techniques or standardized protocols for targeted exams where dose is matched to indication/reason for exam; i.e. extremities or head) *Use of iterative reconstruction technique DLP: 90 mGy-cm FINDINGS: LUNGS: Multiple solid pulmonary nodules measuring up to 7 mm in diameter are not significantly changed compared to 07/29/2022, for example 3 mm nodule in the right upper lobe (5:99), elongated 7 x 4 mm nodule abutting the right minor fissure (5:288), 6 mm nodule in the right lung base (5:169) and 3 mm nodule in the left upper lobe (5:239). No focal consolidation or significant groundglass disease. Central airways are patent. MEDIASTINUM: Normal heart size. No pericardial effusion. No mediastinal lymphadenopathy. Evaluation of the hilar structures is limited in the absence of IV contrast, however accounting for this limitation, no discrete bulky adenopathy seen. Postsurgical changes from thyroidectomy. CORONARY ARTERY CALCIFICATION: Multivessel coronary artery calcifications are present. PLEURA: No pleural effusion or pneumothorax. AXILLA: No lymphadenopathy. UPPER ABDOMEN: Unremarkable. OSSEOUS STRUCTURES: Unremarkable. CT/CT chest wo IV con IMPRESSION: Multiple solid pulmonary nodules measuring up to 7 mm are not significantly changed compared to 07/29/2022. According to the UPDATED 2017 Fleischner Society recommendations, the advised follow-up imaging for multiple solid nodules measuring up to 6-8 mm is follow-up CT at 3 to 6 months. In high-risk patients, subsequent CT follow-up at 18 to 24 months is recommended. In low-risk patients, subsequent CT follow-up at 18 to 24 months is optional. Fleischner guidelines were followed.
== END 2024-04-25 07:10 | disposition home or self-care (01) ==
LOC: HO.CT 07:09
PROVIDERS: PCP Internal Medicine; Visit Provider Internal Medicine
DX: R91.1 Solitary pulmonary nodule (principal)
CPT/HCPCS: 71250

== ENCOUNTER 2024-08-29 12:35 | Outpatient (AMB) | payer OTHER, SELFPAY ==
--- NOTE | 2024-08-29 12:38 | MHC.PC.OV ---
Vital Signs 08/29/24 12:43 Height 5 ft 4 in Weight 118 lb BMI 20.3 BP 130/74 Blood Pressure Location Lt brachial Position Sitting Pulse 96 Pulse Source Pulse Oximeter Pulse Oximetry (%) 98 Oxygen Delivery Method Room Air Intake Visit Reasons: Pain and burning when urinating Intake Note: Pt is here today for a sick visit. Pt c/o pain, burning and frequent urination when urinating since . Pt got otc Azo but she got diarrhea from it and stomach upset. Allergies aspirin Allergy (Intermediate, Verified 08/29/24 12:45) SOB ibuprofen [Advil] Allergy (Intermediate, Verified 08/29/24 12:45) SOB levofloxacin [Levaquin] Allergy (Unknown, Verified 08/29/24 12:45) pt does not remember Medication List - Last Reconciled 08/29/24 by Tiffanie Hernandez MD adalimumab (Humira(CF) Pen) inject one - 40 mg/0.4 mL pen every 2 weeks subcut Advair HFA 230-21 mcg/actuation (fluticasone propion-salmeterol) 2 puffs inhalation BID NS albuterol sulfate 90 mcg/actuation (ProAir HFA) 2 puffs inhalation Q4H PRN alendronate 70 mg PO PARSON ascorbate calcium (vitamin C) 1,000 mg PO DAILY cholecalciferol (vitamin D3) 25 mcg PO DAILY fluticasone propionate 50 mcg/actuation 2 sprays intranasal DAILY folic acid 1 mg PO DAILY levothyroxine 88 mcg PO DAILY methotrexate sodium 10 mg PO SA montelukast 10 mg PO DAILY rosuvastatin (Crestor) 10 mg PO DAILY Tobacco use date assessed: 08/29/24 Dental Screening Dental Screen Date: 02/29/24 HPI Pain and burning when urinating HPI Details Patient complains of increased urinary frequency, feeling of incomplete emptying of the bladder for 2 weeks. She denies nausea vomiting fever chills dysuria or hematuria. [facility] Medical History (Updated 08/29/24 @ 13:25 by Tiffanie Hernandez MD) History of COVID-19 COVID-19 vaccine series completed Osteoporosis Annual physical exam Hyperlipidemia Osteoarthritis Rheumatoid arthritis Thyroid nodule Chronic asthma Allergic rhinitis Surgical History H/O: hysterectomy H/O colonoscopy Family History Mother No problems noted. Social History Household Members: Spouse and Children Housing: House Are you a primary ostomy care nurse to a significant other at home: No Do you presently have visiting nurse or other home services: No Alcohol intake: never Patient Tobacco Use Status: Never used Tobacco e-Cigarette/Vaping Use: Never Used Second Hand Smoke Exposure: No service: No Current occupational status: employed Cognitive needs: No Hearing needs: No Vision needs: Yes Questionnaire PHQ-9 Over the last 2 weeks, how often have you been bothered by any of the following problems? 1. Little interest or pleasure in doing things: not at all Source: Developed by Drs. Jaskaran Parikh, Stefany Fuchs, Gautam Leos and colleagues, with an educational bartolome from [employer]. Thrive Questionnaire Date Thrive assessed: 02/29/24 I am a: Patient What is your living situation today?: I have a steady place to live Within the past 12 months, did the food you bought not last and you didn't have the money to get more?: I choose not to answer this question Within the past 12 months, did you worry whether your food would run out before you got money to buy more?: I choose not to answer this question Do you have trouble paying for medicines?: I choose not to answer this question Do you have trouble getting transportation to medical appointments?: I choose not to answer this question Do you have trouble paying your heating and electricity bill?: I choose not to answer this question Do you have trouble taking care of your child, family member or friend?: I choose not to answer this question Do you have trouble with day-to-day activities such as bathing, preparing meals, shopping, managing finances, etc.?: I choose not to answer this question Are you currently unemployed and looking for a job?: I choose not to answer this question Are you interested in more education?: I choose not to answer this question Please select the resources that you would like help with: None Currently or been in a relationship where the following occur: I choose not to answer THRIVE Score: 0 AUDIT C Alcohol Use Questionnaire (AUDIT-C) 1. How often do you have a drink containing alcohol?: Monthly or less 2. How many drinks containing alcohol do you have on a typical day when you are drinking?: 1 or 2 3. How often do you have six or more drinks on one occasion?: Never Total Score: 1 DAVID-7 AMB Questionnaire DAVID-7 Date DAVID - 7 assessed: 02/29/24 Feeling nervous, anxious, or on edge: 0 = Not at all Not being able to stop or control worryin = Not at all Worrying too much about different things: 0 = Not at all Trouble relaxin = Not at all Being so restless that it is hard to sit still: 0 = Not at all Becoming easily annoyed or irritable: 0 = Not at all Feeling afraid as if something awful might happen: 0 = Not at all Total DAVID-7 score (0-4 normal; 5-9 mild; 10-14 moderate; 15-21 severe): 0 Source: Developed by Drs. Jaskaran Parikh, Stefany Fuchs, Gautam Leos and colleagues, with an educational bartolome from [employer]. Review of Systems Const All systems reviewed & are unremarkable except as noted in HPI and below Eyes Reports no additional complaints ENT Reports no additional complaints Card Reports no additional complaints Resp Reports no additional complaints GI Reports no additional complaints Reports no additional complaints Physical exam (Primary Care) Vital Signs: Last Vital Signs Pulse 96 08/29/24 12:43 BP 130/74 08/29/24 12:43 Pulse Ox 98 08/29/24 12:43 Oxygen Delivery Method Room Air 08/29/24 12:43 BMI result Body Mass Index 20.3 Tobacco/Smoking Status: Tobacco use Status Tobacco use date assessed 08/29/24 08/29/24 12:48 Patient Tobacco Use Status Never used Tobacco 08/29/24 12:40 e-Cigarette/Vaping Use Never Used 08/29/24 12:40 Thrive Assessment: Date of Thrive Assessment Date Thrive assessed 02/29/24 08/29/24 12:40 Currently or been in a relationship where the following occur: I choose not to answer Const General: no acute distress Eyes General: appearance normal, both eyes and all related structures Neck Neck: Yes supple Resp Effort & Inspection: normal respiratory effort Auscultation: clear to auscultation bilaterally Cardio Rhythm: regular rhythm Heart sounds: S1 normal heart sound present and S2 normal heart sound present GI Inspection: Yes normal to inspection Palpation (GI): Soft to palpation Percussion: Yes normal to percussion Auscultation: normal bowel sounds General: Yes no CVA tenderness Back/Spine/Pelvis Back: no CVA tenderness Results AMB Urinalysis, Automated UA Leukoctes 0 Luis Felipe/uL Last Edit by МАРИНА Arreola on 08/29/24 12:50 UA Nitrite Negative Last Edit by МАРИНА Arreola on 08/29/24 12:50 UA Urobilinogen 0.2 mg/dL Last Edit by МАРИНА Arreola on 08/29/24 12:50 UA Protein 0 mg/dL Last Edit by МАРИНА Arreola on 08/29/24 12:50 UA pH 6.0 Last Edit by МАРИНА Arreola on 08/29/24 12:50 UA Blood 10 Tariq/uL Last Edit by МАРИНА Arreola on 08/29/24 12:50 UA Specific [place] 1.005 Last Edit by МАРИНА Arreola on 08/29/24 12:50 UA Ketone Negative Last Edit by МАРИНА Arreola on 08/29/24 12:50 UA Bilirubin 0 mg/dL Last Edit by МАРИНА Arreola on 08/29/24 12:50 UA Glucose 0 mg/dL Last Edit by МАРИНА Arreola on 08/29/24 12:50 Results Reviewed Results Reviewed: Laboratory Last Values Urine pH (Auto) 6.0 08/29/24 12:49 Specific [place] (Auto) 1.005 08/29/24 12:49 Urine Protein (Auto) 0 mg/dL 08/29/24 12:49 Glucose (UA)(Auto) 0 mg/dL 08/29/24 12:49 Urine Ketones (Auto) Negative 08/29/24 12:49 Urine Blood (Auto) 10 Tariq/uL 08/29/24 12:49 Urine Nitrite (Auto) Negative 08/29/24 12:49 Urine Bilirubin (Auto) 0 mg/dL 08/29/24 12:49 Urine Urobilinogen (Auto) 0.2 mg/dL 08/29/24 12:49 Leukocyte Esterase (Auto) 0 Luis Felipe/uL 08/29/24 12:49 Coding Level of Care Code Est Pt Level 3 (06060) Diagnoses Urinary urgency R39.15 Assessment & Plan Assessment & Plan (1) Urinary urgency: Code(s): R39.15 - Urgency of urination Category: Medical Plan: Check urine culture and obtain bladder scan to rule out urinary retention. Tried of Myrbetriq if the symptoms persist. Orders: Orders AMB Urinalysis Automated Today Z13.9 - Encounter for screening, unspecified Urine Culture Today R30.0 - Dysuria, R31.29 - Other microscopic hematuria US bladder Today R39.15 - Urgency of urination
[2024-08-29 12:43] VITALS: BP 130/74; PULSE 96; O2SAT 98; BMI 20.3
== END 2024-08-29 13:33 | disposition home or self-care (01) ==
LOC: HO.HMCC 12:36
PROVIDERS: PCP Internal Medicine; Visit Provider Internal Medicine
DX: R39.15 Urgency of urination (principal); Z13.9 Encounter for screening, unspecified

== ENCOUNTER 2024-08-29 12:35 | Outpatient (REF) | payer OTHER, SELFPAY | END 2024-08-29 12:36 | disposition home or self-care (01) | LOC: HO.LAB 12:35 | PROVIDERS: PCP Internal Medicine; Visit Provider Internal Medicine | DX: R31.29 Other microscopic hematuria (principal); R30.0 Dysuria | CPT/HCPCS: 81003; 87086 ==

== ENCOUNTER 2024-08-29 13:34 | Outpatient (REF) | payer OTHER, SELFPAY ==
--- NOTE | ~2024-08-29 | US_ITS ---
EXAMINATION: US PELVIS LIMITED (BLADDER) CLINICAL INFORMATION: Urgency. COMPARISON: CT abdomen/pelvis dated 12/24/2022. TECHNIQUE: Real-time imaging of the bladder. FINDINGS: BLADDER: Well distended and normal. Bilateral ureteral jets are demonstrated. Prevoid bladder volume is 211 mL. Postvoid bladder volume is 11.5 mL. US/US bladder IMPRESSION: Unremarkable examination. Electronically signed by: Raf Durbin MD 08/29/2024 03:23 PM [facility]
== END 2024-08-29 13:35 | disposition home or self-care (01) ==
LOC: HO.HMGCX 13:34
PROVIDERS: PCP Internal Medicine; Visit Provider Internal Medicine
DX: R39.15 Urgency of urination (principal)
CPT/HCPCS: 76857

== ENCOUNTER 2024-10-25 13:44 | Outpatient (AMB) | payer OTHER, SELFPAY ==
[2024-10-25 14:08] VITALS: BP 118/70; PULSE 101; TEMP 36.7; O2SAT 97; BMI 20.3
--- NOTE | 2024-10-25 14:08 | A.OFFPC_ITS ---
Vital Signs 10/25/24 14:08 Height 5 ft 4 in Weight 118 lb BMI 20.3 BP 118/70 Blood Pressure Location Lt brachial Position Sitting Pulse 101 H Pulse Source Pulse Oximeter Temp 98.1 F Temp Source Oral Pulse Oximetry (%) 97 Oxygen Delivery Method Room Air Intake Visit Reasons: Cough, chest congestion Intake Note: Pt is here today for a sick visit. Pt c/o chest and nasal congestion.Pt also c/o pain in her chest that radiates to the back. Allergies aspirin Allergy (Intermediate, Verified 10/25/24 14:23) SOB ibuprofen [Advil] Allergy (Intermediate, Verified 10/25/24 14:23) SOB levofloxacin [Levaquin] Allergy (Unknown, Verified 10/25/24 14:23) pt does not remember Medication List - Last Reconciled 10/25/24 by Tiffanie Hernandez MD adalimumab (Humira(CF) Pen) inject one - 40 mg/0.4 mL pen every 2 weeks subcut Advair HFA 230-21 mcg/actuation (fluticasone propion-salmeterol) 2 puffs inhalation BID NS albuterol sulfate 90 mcg/actuation (ProAir HFA) 2 puffs inhalation Q4H PRN alendronate 70 mg PO PARSON ascorbate calcium (vitamin C) 1,000 mg PO DAILY cholecalciferol (vitamin D3) 25 mcg PO DAILY fluticasone propionate 50 mcg/actuation 2 sprays intranasal DAILY folic acid 1 mg PO DAILY levothyroxine 88 mcg PO DAILY methotrexate sodium 10 mg PO SA montelukast 10 mg PO DAILY rosuvastatin (Crestor) 10 mg PO DAILY Tobacco use date assessed: 08/29/24 Dental Screening Dental Screen Date: 02/29/24 HPI Cough, chest congestion HPI Details Pt c/o productive cough, yellow sputum postnasal drip chest congestion low-grade fever R side chest pain, positional for 5 days she has been using a Advair inhaler and albuterol up to 4 times a day with some relief. [facility] Medical History History of COVID-19 COVID-19 vaccine series completed Osteoporosis Annual physical exam Hyperlipidemia Osteoarthritis Rheumatoid arthritis Thyroid nodule Chronic asthma Allergic rhinitis Surgical History H/O: hysterectomy H/O colonoscopy Family History Mother No problems noted. Social History Household Members: Spouse and Children Housing: House Are you a primary aged or disabled carer to a significant other at home: No Do you presently have visiting nurse or other home services: No Alcohol intake: never Patient Tobacco Use Status: Never used Tobacco e-Cigarette/Vaping Use: Never Used Second Hand Smoke Exposure: No service: No Current occupational status: employed Cognitive needs: No Hearing needs: No Vision needs: Yes Questionnaire Thrive Questionnaire Date Thrive assessed: 08/29/24 I am a: Patient What is your living situation today?: I have a steady place to live Within the past 12 months, did the food you bought not last and you didn't have the money to get more?: I choose not to answer this question Within the past 12 months, did you worry whether your food would run out before you got money to buy more?: I choose not to answer this question Do you have trouble paying for medicines?: I choose not to answer this question Do you have trouble getting transportation to medical appointments?: I choose not to answer this question Do you have trouble paying your heating and electricity bill?: I choose not to answer this question Do you have trouble taking care of your child, family member or friend?: I choose not to answer this question Do you have trouble with day-to-day activities such as bathing, preparing meals, shopping, managing finances, etc.?: I choose not to answer this question Are you currently unemployed and looking for a job?: I choose not to answer this question Are you interested in more education?: I choose not to answer this question Please select the resources that you would like help with: None Currently or been in a relationship where the following occur: I choose not to answer THRIVE Score: 0 DAVID-7 AMB Questionnaire DAVID-7 Date DAVID - 7 assessed: 02/29/24 Source: Developed by Drs. Jaskaran aPrikh, Stefany Fuchs, Gautam Leos and colleagues, with an educational bartolome from [employer] Review of Systems Const All systems reviewed & are unremarkable except as noted in HPI and below ENT Reports no additional complaints Card Reports no additional complaints Resp Reports no additional complaints GI Reports no additional complaints Reports no additional complaints Physical exam (Primary Care) Vital Signs: Last Vital Signs Temp 98.1 F 10/25/24 14:08 Pulse 101 H 10/25/24 14:08 BP 118/70 10/25/24 14:08 Pulse Ox 97 10/25/24 14:08 Oxygen Delivery Method Room Air 10/25/24 14:08 BMI result Body Mass Index 20.3 Tobacco/Smoking Status: Tobacco use Status Tobacco use date assessed 08/29/24 10/25/24 14:11 Patient Tobacco Use Status Never used Tobacco 10/25/24 14:11 e-Cigarette/Vaping Use Never Used 10/25/24 14:11 Thrive Assessment: Date of Thrive Assessment Date Thrive assessed 08/29/24 10/25/24 14:11 Currently or been in a relationship where the following occur: I choose not to answer Const General: no acute distress HENMT Ears: TM's normal bilaterally Face and sinus: Yes normal facial exam Throat: Yes posterior oropharynx abnormal (erythema) and Yes postnasal drainage Neck Neck: Yes no lymphadenopathy and Yes supple Resp Effort & Inspection: normal respiratory effort Auscultation: wheezes and diminished lung sounds Cardio Rhythm: regular rhythm Heart sounds: S1 normal heart sound present and S2 normal heart sound present Coding Level of Care Code Est Pt Level 3 (75179) Diagnoses URI (upper respiratory infection) J06.9 Chronic asthma J45.909 Assessment & Plan Assessment & Plan (1) URI (upper respiratory infection): Code(s): J06.9 - Acute upper respiratory infection, unspecified Category: Medical Plan: Supportive care discussed with the patient's Z-Eliazar prednisone taper and does on Prozac prescribed (2) Chronic asthma: Comment: asthma well controlled, uses inhalers Code(s): J45.909 - Unspecified asthma, uncomplicated Category: Medical Plan: Continue Advair and albuterol prn Medications: New prednisone Four tablets p.o. q.d. for 3 days then 3 tablets p.o. q.d. for 3 days then 2 tablets p.o. q.d. for 3 days then 1 tablet p.o. q.d. for 3 days orally daily; 30 tabs 0RF azithromycin For 250 mg dose pack: take 500 mg today (day 1), then 250 mg for 4 days (days 2-5) PO 6 tabs 0RF benzonatate 100 mg PO TID 30 caps 0RF
== END 2024-10-25 14:59 | disposition home or self-care (01) ==
PROVIDERS: PCP Internal Medicine; Visit Provider Internal Medicine
DX: J06.9 Acute upper respiratory infection, unspecified (principal); J45.909 Unspecified asthma, uncomplicated

== ENCOUNTER 2024-11-14 12:25 | Day surgery (SDC) | payer OTHER, SELFPAY ==
[2024-11-14 13:44] VITALS: BMI 19.4
--- NOTE | 2024-11-14 13:47 | MHC.SHP ---
Pre-Procedural Eval Section A - 24 Hr Update-Section A only Date of Service: 11/14/24 The patient is an INPATIENT: No The patient has been examined within 24 hours of the surgical procedure. The History & Physical has been completed within 30 days and I have reviewed it.: No Section B - Complete if H&P > 30 days Chief Complaint: Surveillance for colon polyps Relevant Family History (Specify if Yes): No Relevant Social History: Tobacco Use Present Medications: see Short Stay Collaborative assessment Medical History: Significant History (Chronic asthma COVID-19 vaccine series completed History of COVID-19 Hyperlipidemia Osteoarthritis Osteoporosis Rheumatoid arthritis Thyroid nodule Tubular adenoma) History of Previous Operations: Relevant previous surgery/procedure and date(s) (History of colonoscopy, history of hysterectomy) Allergies: Allergies Allergy/AdvReac Type Severity Reaction Status Date / Time aspirin Allergy Intermediate SOB Verified 11/14/24 13:43 ibuprofen [Advil] Allergy Intermediate SOB Verified 11/14/24 13:43 levofloxacin [Levaquin] Allergy Unknown pt does Verified 11/14/24 13:43 not remember Review of Systems Sugical H&P ROS: Negative: Constitution, Cardiovascular, Respiratory and Gastrointestinal Exam Surgical H&P Exam: Normal: Heart, Normal: Lungs, Normal: Extremities and Normal: Abdomen Plan Diagnosis/Plan: Unchanged I have reviewed the history and physical and performed a pertinent physical examination on my patient. No changes have occurred unless specified. Time Spent With Patient Time: Total time managing care of this patient today ____ minutes.
[2024-11-14 13:55] VITALS: BP 123/67; PULSE 87; RESP 15; TEMP 37.2; O2SAT 97
[2024-11-14] MEDS: Lactated Ringers 1,000 ML 50 ML IVCONT (14:10)
--- NOTE | 2024-11-14 14:45 | P.CONAN_ITS ---
HPI - Anesthesia Eval Consult details Narrative: for colonoscopy [facility] Active Problems Active Problems: All Active Problems URI (upper respiratory infection) (Acute) Urinary urgency (Acute) Microscopic hematuria (Acute) Irritated nevus of back (Acute) Diverticulosis (Acute) Tubulovillous adenoma of colon (Acute) Lung nodule (Acute) Dyspnea on exertion (Acute) Hypothyroid (Acute) COVID-19 (Acute) Osteoporosis (Acute) Rheumatoid arthritis (Acute) Hyperlipidemia (Acute) Annual physical exam (Acute) Chronic asthma (Acute) Past Medical History Medical History History of COVID-19 COVID-19 vaccine series completed Osteoporosis Annual physical exam Hyperlipidemia Osteoarthritis Rheumatoid arthritis Thyroid nodule Chronic asthma Allergic rhinitis Family History Family History Mother No problems noted. Family history of problems with anesthesia: No Surgical History Surgical History (Updated 11/14/24 @ 13:43 by Maria Davalos RN) History of surgery on arm Hx of thyroidectomy H/O: hysterectomy H/O colonoscopy History of Problems with Anesthesia: No Social History Social History Household Members: Spouse and Children Housing: House Are you a primary care transport nurse to a significant other at home: No Do you presently have visiting nurse or other home services: No Alcohol intake: never Patient Tobacco Use Status: Never used Tobacco e-Cigarette/Vaping Use: Never Used Second Hand Smoke Exposure: No Use of substances other than those prescribed or required for medical reasons: No Are you DNR?: No Advance Directives: No Advance Directives Information Provided: Yes service: No Current occupational status: employed Cognitive needs: No Hearing needs: No Vision needs: Yes Meds Allergies Allergy/AdvReac Type Severity Reaction Status Date / Time aspirin Allergy Intermediate SOB Verified 11/14/24 13:43 ibuprofen [Advil] Allergy Intermediate SOB Verified 11/14/24 13:43 levofloxacin [Levaquin] Allergy Unknown pt does Verified 11/14/24 13:43 not remember Active Medications: Current Medications Lactated Ringer's (Lr) 1,000 mls @ 50 mls/hr IVCONT .Q20H RAMAN Last Admin: 11/14/24 14:10 Dose: 50 mls/hr Home Medications ?Medication ?Instructions ?Recorded ?Confirmed ?Last Taken ?Type alendronate 70 mg tablet 70 mg PO PARSON 01/04/21 11/14/24 07/27/22 History ascorbate calcium (vitamin C) 500 1,000 mg PO DAILY 02/13/21 11/14/24 07/29/22 History mg tablet cholecalciferol (vitamin D3) 25 25 mcg PO DAILY 02/13/21 11/14/24 07/29/22 History mcg (1,000 unit) tablet folic acid 1 mg tablet 1 mg PO DAILY 02/13/21 11/14/24 07/29/22 History methotrexate sodium 2.5 mg tablet 10 mg PO SA 02/13/21 11/14/24 07/26/22 History adalimumab 40 mg/0.4 mL See Rx Instructions subcut .COMPLEX 01/06/22 11/14/24 07/25/22 History subcutaneous pen kit (Humira(CF) Pen) Exam Height,Weight and Vital Signs: Height 5 ft 4 in Weight 51.256 kg Last Vital Signs Temp 98.9 F 11/14/24 13:55 Pulse 87 11/14/24 13:55 Resp 15 11/14/24 13:55 BP 123/67 11/14/24 13:55 Pulse Ox 97 11/14/24 13:55 O2 Del Method Room Air 11/14/24 13:55 Airway Mallampati Class: I TM Dist: >3cm Neck ROM: Full Denture: Upper and Lower Heart: ok Lungs: ok Assessment and Plan Assessment Anesthesia Assessment: Anesthesia Plan Discussed and Chart Reviewed Final Anesthetic Review Family History of Problems with Anesthesia: No History of Problems with Anesthesia: No NPO: Yes ASA Class: II Final Preanesthetic Review: No Changes in Pt Med Stat, Meds/Allgs Chart Reviewed, Consent Obtained/Reviewed and Anes Risks/Benef Reviewed Patient Risk: Low Procedure Risk: Low Anesthetic Plan Anesthetic Plan: MAC: and Agree w/ Assess. and Plan Disposition: Standard PACU
--- NOTE | 2024-11-14 15:24 | HO.OPN-COLON ---
Colonoscopy Operative Note Operative Note Date of Service: 11/14/24 Narrative: COLONOSCOPY TILL CECUM WITH BIOPSIES AND SNARE POLYPECTOMY Pre-op diagnosis: Surveillance for colon polyps. Post-op diagnosis:? Colon polyps, Diverticulosis, hemorrhoids Endoscopist:? Edwar Osuna MD Anesthesia:?MAC Consent: Indications for the procedure and potential complications of bleeding, perforation, reaction to medications and missed diagnosis were discussed with the patient and informed consent was obtained. Instrument: Olympus PCF H 190 L variable stiffness pediatric colonoscope Monitoring: Vital signs and clinical assessment, intermittent blood pressure monitoring, continuous EKG monitoring, Pulse oximetry and Carbon Dioxide monitoring were done throughout the procedure. Please see anesthesia flowsheet. Colon withdrawl time was 18 minutes. Procedure: The patient was placed in the left lateral decubitis position and pre-procedure medications were administered. After a digital rectal examination of the ano-rectum, the video colonoscope was inserted into the rectum and advanced through the colon to the cecum. The colonoscope was slowly withdrawn in a retrograde panoramic fashion and the colon mucosa was carefully examined including a retroflexed view of the rectum. Findings and interventions are described below. Procedure Difficulty: without difficulty Findings: Terminal Ileum: Not evaluated Cecum: Two 4-5 mm sessile polyps - removed with a cold biopsy Ascending Colon: Normal Transverse Colon: A 4-5 mm sessile polyp - removed with a cold snare Descending Colon: A 5-6 mm sessile polyp - removed with a cold snare. Moderate diverticulosis Sigmoid Colon: Moderate diverticulosis Rectum: A 3-4 mm sessile polyp - removed with a cold biopsy Ano-rectum: Small internal hemorrhoids Colon preparation: Good after some irrigation. [place] Bowel Preparation Scale Right colon; 2 Transverse colon: 2 Left colon; 2 (0 = Unprepared colon segment with mucosa not seen due to solid stool that cannot be cleared. 1 = Portion of mucosa of the colon segment seen, but other areas of the colon segment not well seen due to staining, residual stool and/or opaque liquid. 2 = Minor amount of residual staining, small fragments of stool and/or opaque liquid, but mucosa of colon segment seen well. 3 = Entire mucosa of colon segment seen well with no residual staining, small fragments of stool or opaque liquid) Impression and Post Procedure Diagnosis: Colonoscopy Findings: Five small polyps were removed Moderate diverticulosis seen in the left colon small hemorrhoids on retroflexed exam. Plan: Pt has a FU appointment on 11/25/24 with Shyla Domingo NP Repeat Colonoscopy in 3-5 years if polyps are adenomatous and 10 year if polyps are hyperplastic. Above findings were reviewed with the patient and relevant handouts were given and the discharge area. BIOPSIES SHOWED: A. Colon, transverse, polypectomy: Hyperplastic mucosal polyp. B. Cecum, polypectomies: Clinically polypoid colonic mucosa within normal limits. C. Colon, descending, polypectomy: Tubular adenoma; negative for high-grade dysplasia or carcinoma. D. Rectum, polypectomy: Hyperplastic mucosal polyp. Letter sent advising repeat colonoscopy in 5 years. Patient was placed on the colonoscopy recall list.
[2024-11-14 15:28] VITALS: BP 91/53; PULSE 82; RESP 16; TEMP 36.9; O2SAT 94
[2024-11-14 15:44] VITALS: BP 109/62; PULSE 81; RESP 17; TEMP 36.7; O2SAT 95
== END 2024-11-14 16:02 | disposition home or self-care (01) ==
PROVIDERS: PCP Internal Medicine; Visit Provider Internal Medicine Gastroenterology
PROC: 0DJD8ZZ Inspection of Lower Intestinal Tract, Via Natural or Artificial Opening Endoscopic (ICD-10-PCS; CPT 45378; principal; 2024-11-14 14:40)
DX: Z12.11 Encounter for screening for malignant neoplasm of colon (principal); Z86.0101 Personal history of adenomatous and serrated colon polyps; D12.4 Benign neoplasm of descending colon; K63.5 Polyp of colon; K62.1 Rectal polyp; K57.30 Diverticulosis of large intestine without perforation or abscess without bleeding; K64.8 Other hemorrhoids; J45.909 Unspecified asthma, uncomplicated; E78.5 Hyperlipidemia, unspecified; E04.1 Nontoxic single thyroid nodule; M81.0 Age-related osteoporosis without current pathological fracture; M19.042 Primary osteoarthritis, left hand; M19.041 Primary osteoarthritis, right hand; M06.9 Rheumatoid arthritis, unspecified; Z79.620 Long term (current) use of immunosuppressive biologic; Z79.51 Long term (current) use of inhaled steroids; Z79.899 Other long term (current) drug therapy; Z88.1 Allergy status to other antibiotic agents; Z88.6 Allergy status to analgesic agent; Z98.890 Other specified postprocedural states
CPT/HCPCS: 45385; 45380; 88305; J2003; J2704; J3010

== ENCOUNTER → 2024-11-14 12:25 | Outpatient (BNV) | payer OTHER, SELFPAY | PROVIDERS: PCP Internal Medicine; Visit Provider Internal Medicine Gastroenterology | DX: Z12.11 Encounter for screening for malignant neoplasm of colon (principal); Z86.0100 Personal history of colon polyps, unspecified; D12.4 Benign neoplasm of descending colon; K62.1 Rectal polyp; K63.5 Polyp of colon; K57.30 Diverticulosis of large intestine without perforation or abscess without bleeding; K64.8 Other hemorrhoids | CPT/HCPCS: 45380; 45385 ==

== ENCOUNTER 2024-11-25 10:15 | Outpatient (AMB) | payer OTHER, SELFPAY ==
--- NOTE | 2024-11-25 10:17 | MHC.OFFVIS ---
Vital Signs 11/25/24 10:32 Height 5 ft 4 in Weight 119 lb 14.903 oz BMI 20.6 BP 110/56 L Blood Pressure Location Rt brachial Position Sitting Pulse 102 H Pulse Source Pulse Oximeter Pulse Oximetry (%) 96 Oxygen Delivery Method Room Air Intake Visit Reasons: Was Rhonda Pt 2yr colo recall Intake Note: ESTABLISHED PATIENT for s/p FUV. Re-est with new provider. Chief Complaint; No GI concerns per pt Junior Estimator Required: No Accompanied by: Self / Same As Patient Allergies aspirin Allergy (Intermediate, Verified 11/25/24 10:18) SOB ibuprofen [Advil] Allergy (Intermediate, Verified 11/25/24 10:18) SOB levofloxacin [Levaquin] Allergy (Unknown, Verified 11/25/24 10:18) pt does not remember HPI HPI Was Rhonda Pt 2yr colo recall: Details: LAST VISIT WITH MEENA WADSWORTH 05/17/2023 A 62-year-old female follows up after recent repeat colonoscopy for multiple tubulovillous adenoma in October 2022. Colonoscopy with once again polypectomy of several adenomas. Reviewed procedure report and pathology-she had opportunity to ask many questions Her son is present She has no GI complaints No nausea, vomiting hematemesis, hematochezia fever chills COLONOSCOPY SCREENING Findings: Terminal Ileum: Not evaluated Cecum: Two 4-5 mm sessile polyps - removed with a cold biopsy Ascending Colon: Normal Transverse Colon: A 4-5 mm sessile polyp - removed with a cold snare Descending Colon: A 5-6 mm sessile polyp - removed with a cold snare. Moderate diverticulosis Sigmoid Colon: Moderate diverticulosis Rectum: A 3-4 mm sessile polyp - removed with a cold biopsy Ano-rectum: Small internal hemorrhoids Colon preparation: Good after some irrigation. [place] Bowel Preparation Scale Right colon; 2 Transverse colon: 2 Left colon; 2 (0 = Unprepared colon segment with mucosa not seen due to solid stool that cannot be cleared. 1 = Portion of mucosa of the colon segment seen, but other areas of the colon segment not well seen due to staining, residual stool and/or opaque liquid. 2 = Minor amount of residual staining, small fragments of stool and/or opaque liquid, but mucosa of colon segment seen well. 3 = Entire mucosa of colon segment seen well with no residual staining, small fragments of stool or opaque liquid) Impression and Post Procedure Diagnosis: Colonoscopy Findings: Five small polyps were removed Moderate diverticulosis seen in the left colon small hemorrhoids on retroflexed exam. Plan: Repeat Colonoscopy in 3-5 years if polyps are adenomatous and 10 year if polyps are hyperplastic. Above findings were reviewed with the patient and relevant handouts were given and the discharge area. BIOPSIES SHOWED: A. Colon, transverse, polypectomy: Hyperplastic mucosal polyp. B. Cecum, polypectomies: Clinically polypoid colonic mucosa within normal limits. C. Colon, descending, polypectomy: Tubular adenoma; negative for high-grade dysplasia or carcinoma. D. Rectum, polypectomy: Hyperplastic mucosal polyp. Letter sent advising repeat colonoscopy in 5 years. Patient was placed on the colonoscopy recall list. TODAY'S VISIT Patient is here today for follow-up and to discuss colonoscopy results. Patient denies any ill effects from the prep, anesthesia or procedure itself. Patient reports that she is feeling well. Occasional postprandial loose stools, however she reports that does not happen often. One tubular adenoma found and colonoscopy was recommended in 5 years. Patient denies any melena, hematochezia, denies any dyspepsia, dysphagia or odynophagia. Patient reports to be feeling well. Denies any GI concerning symptoms. [facility] Medical History History of COVID-19 COVID-19 vaccine series completed Osteoporosis Annual physical exam Hyperlipidemia Osteoarthritis Rheumatoid arthritis Thyroid nodule Chronic asthma Allergic rhinitis Surgical History History of surgery on arm Hx of thyroidectomy H/O: hysterectomy H/O colonoscopy Family History Mother No problems noted. Social History Household Members: Spouse and Children Housing: House Are you a primary toddler caregiver to a significant other at home: No Do you presently have visiting nurse or other home services: No Alcohol intake: never Patient Tobacco Use Status: Never used Tobacco e-Cigarette/Vaping Use: Never Used Second Hand Smoke Exposure: No service: No Current occupational status: employed Cognitive needs: No Hearing needs: No Vision needs: Yes Review of Systems Const Denies weight gain and Denies weight loss ENT Reports no additional complaints, Denies dysphagia and Denies odynophagia Card Reports no additional complaints Resp Reports no additional complaints GI Denies abdominal pain, Denies belching, Denies melena, Denies bloating, Denies change in bowel habits, Denies dysphagia, Denies excessive flatus, Denies dyspepsia, Denies heartburn, Denies diarrhea, Denies loose stools, Denies nausea, Denies odynophagia and Denies vomiting Musc Reports no additional complaints Neuro Reports no additional complaints Psych Reports no additional complaints Endo Reports no additional complaints Physical Exam Vital Signs: Last Vital Signs Pulse 102 H 11/25/24 10:32 BP 110/56 L 11/25/24 10:32 Pulse Ox 96 11/25/24 10:32 Oxygen Delivery Method Room Air 11/25/24 10:32 BMI result Body Mass Index 20.6 Const General: healthy appearing, no acute distress and well developed Nutritional Appearance: well nourished Orientation/consciousness: patient oriented x3 Resp Effort & Inspection: normal respiratory effort, able to speak in complete sentences, no tracheal deviation and symmetric chest movement Auscultation: clear to auscultation bilaterally Cardio Rate: regular rate GI Inspection: Yes normal to inspection and No distended Palpation (GI): Soft to palpation, not firm, nontender and No hepatosplenomegaly present Auscultation: normal bowel sounds General: Yes no CVA tenderness Back/Spine/Pelvis Back: no CVA tenderness Skin General skin exam: elasticity normal, turgor normal and dry skin Neuro General: patient oriented x3 Psych Appearance: grossly normal Mental Status: mental status grossly normal Assessment & Plan Assessment & Plan (1) Diverticulosis: Code(s): K57.90 - Diverticulosis of intestine, part unspecified, without perforation or abscess without bleeding Category: Medical (2) Tubular adenoma of colon: Code(s): D12.6 - Benign neoplasm of colon, unspecified (3) Status post colonoscopy: Code(s): Z98.890 - Other specified postprocedural states Plan Diverticulosis found and 1 tubular adenoma without high-grade dysplasia or carcinoma. Discussed with patient high-fiber diet. List of food high in fiber given to patient. Five years recall for colonoscopy sooner if clinically necessary. Patient is agreeable to this plan and verbalizes understanding of instructions. Follow-up in the office as needed. She is agreeable to this plan and verbalizes understanding of instructions. She was given the opportunity to ask questions and all questions answered. Thank you for allowing me to participate in her care Coding Level of Care Code Est Pt Level 3 (78480) Diagnoses Diverticulosis K57.90 Tubular adenoma of colon D12.6 Status post colonoscopy Z98.890 Time Spent (min) 30 Comment 20 minutes spent with patient and additional 10 minutes spent reviewing her records
[2024-11-25 10:32] VITALS: BP 110/56; PULSE 102; O2SAT 96; BMI 20.6
== END 2024-11-25 13:43 | disposition home or self-care (01) ==
PROVIDERS: PCP Internal Medicine; Visit Provider Nurse Practitioner Family
DX: K57.90 Diverticulosis of intestine, part unspecified, without perforation or abscess without bleeding (principal); D12.6 Benign neoplasm of colon, unspecified; Z98.890 Other specified postprocedural states
CPT/HCPCS: 99213

== ENCOUNTER 2025-02-25 07:54 | Outpatient (REF) | payer OTHER, SELFPAY ==
[2025-02-25 11:43] LABS: MANUAL DIFF FLAG NO
[2025-02-25 12:06] LABS: Appearance Urine Clear; Color Urine Yellow; Glucose Urine UA Negative (Negative); Leukocyte Esterase Urine Large (3+) (Negative); Nitrite Urine Negative (Negative); PH 6.5 (5.0-9.0); UMIC TRIGGER UA YES; Urine Blood Small (1+) (Negative); Urine Ketones Negative (Negative); Urine Protein Negative (Neg-Trace)
[2025-02-25 12:10] LABS: Basophils Percent Auto 0.3 % (0-2); Eosinophils Absolute Auto 0.3 X10*3/uL (0.0-0.4); Eosinophils Percent Auto 4.8 % (0-4); Hematocrit 41.2 % (37.0-47.0); Hemoglobin 13.4 g/dl (12.0-16.0); Imm Gran Abs Auto 0.01 X10*3/uL (0.00-0.03); Imm Gran Pct Auto 0.2 % (0.0-0.4); Lymphocytes Absolute Auto 2.2 X10*3/uL (1.2-4.9); Lymphocytes Percent Auto 32.3 % (20-40); Mean Corpuscular HGB Conc 32.5 g/dl (31.0-35.0); Mean Corpuscular Hemoglobin 29.8 pg (27.0-33.0); Mean Corpuscular Volume 91.6 fL (80.0-98.0); Mean Platelet Volume 9.5 fL (9.4-12.3); Monocytes Absolute Auto 0.9 X10*3/uL (0.1-1.2); Monocytes Percent Auto 13.5 % (2-11); Neutrophils Absolute Auto 3.3 x10*3/uL (2.0-8.3); Neutrophils Percent Auto 48.9 % (45-73); Platelet Count 285 X10*3/uL (160-400); Red Cell Distribution Width 13.3 % (11.0-16.0); White Blood Count 6.7 X10*3/uL (4.8-10.8)
[2025-02-25 12:13] LABS: Bacteria Urine None Seen (None Seen); Hyaline Casts Urine 0-2 /LPF (0-2); Squamous Epithelial Cell Urine 0-2 /HPF (0-2); WBC Urine >50 /HPF (0-5)
[2025-02-25 12:42] LABS: Alanine Aminotransferase 19 U/L (0-31); Albumin Level 4.2 g/dL (3.5-5.0); Anion Gap 13 (12-20); Aspartate Amino Transferase 19 U/L (5-31); Bilirubin Total 0.3 mg/dL (0.0-1.0); Blood Urea Nitrogen 11 mg/dL (9-16); Calcium 9.3 mg/dL (8.4-10.2); Carbon Dioxide 26 mmol/L (22-29); Chloride 108 mmol/L (96-108); Cholesterol 169 mg/dL (<200); Estimated Glomerular Filt Rate > 60; Glucose Fasting 95 mg/dL (60-99); HDL Cholesterol 87 mg/dL (>40); LDL Cholesterol Calculated 64 mg/dL (<100); Potassium 3.8 mmol/L (3.3-5.1); Sodium 143 mmol/L (135-145); Total Protein 7.1 g/dL (6.5-8.0); Triglycerides 92 mg/dL (<150)
[2025-02-25 12:59] LABS: TSH reflex Free T4 1.54 uIU/mL (0.32-4.0)
[2025-02-25 13:12] LABS: Alkaline Phosphatase 80 U/L (39-117)
[2025-03-01 14:28] LABS: Vitamin D 25-OH, D2 <4 ng/mL; Vitamin D 25-OH, D3 29 ng/mL; Vitamin D 25-OH, Total 29 ng/mL (30-100)
== END 2025-02-25 07:55 | disposition home or self-care (01) ==
LOC: HO.HMGCLDS 07:54
PROVIDERS: PCP Internal Medicine; Visit Provider Internal Medicine
DX: Z00.00 Encounter for general adult medical examination without abnormal findings (principal); M81.0 Age-related osteoporosis without current pathological fracture; E03.9 Hypothyroidism, unspecified
CPT/HCPCS: 36415; 80053; 80061; 81001; 82306; 84443; 85025

== ENCOUNTER 2025-03-02 08:53 | Outpatient (AMB) | payer OTHER, SELFPAY ==
[2025-03-02 09:17] VITALS: BP 118/68; PULSE 86; RESP 18; TEMP 36.7; O2SAT 97; BMI 20.3
--- NOTE | 2025-03-02 09:17 | MHC.PC.OV ---
Vital Signs 03/02/25 09:17 Height 5 ft 4 in Weight 118 lb BMI 20.3 BP 118/68 Blood Pressure Location Lt brachial Position Sitting Respiration 18 Pulse 86 Pulse Source Pulse Oximeter Temp 98.0 F Temp Source Oral Pulse Oximetry (%) 97 Oxygen Delivery Method Room Air Intake Visit Reasons: Pe-reschedule from 03/06 Intake Note: Pt is here today for PE. Allergies aspirin Allergy (Intermediate, Verified 03/02/25 09:29) SOB ibuprofen [Advil] Allergy (Intermediate, Verified 03/02/25 09:29) SOB levofloxacin [Levaquin] Allergy (Unknown, Verified 03/02/25 09:29) pt does not remember Medication List - Last Reconciled 03/02/25 by Tiffanie Hernandez MD adalimumab (Humira(CF) Pen) inject one - 40 mg/0.4 mL pen every 2 weeks subcut adalimumab-ryvk mg subcut Advair HFA 230-21 mcg/actuation (fluticasone propion-salmeterol) 2 puffs inhalation BID NS albuterol sulfate 90 mcg/actuation (ProAir HFA) 2 puffs inhalation Q4H PRN alendronate 70 mg PO PARSON ascorbate calcium (vitamin C) 1,000 mg PO DAILY cholecalciferol (vitamin D3) 25 mcg PO DAILY fluticasone propionate 50 mcg/actuation 2 sprays intranasal DAILY folic acid 1 mg PO DAILY levothyroxine 88 mcg PO DAILY methotrexate sodium 10 mg PO SA montelukast 10 mg PO DAILY rosuvastatin (Crestor) 10 mg PO DAILY Tobacco use date assessed: 03/02/25 Dental Screening Dental Screen Date: 03/02/25 Did you have a dental visit in the last 12 months?: Yes Did you have a dental problem in the last 6 months where you did not have access to dental care?: No Was dental information given to patient?: Patient has dentist HPI Pe-reschedule from 03/06 HPI Details Pt presents for PE. Patient complains of left inner ear pain for 3 weeks worse when walking and some swelling at the end of the day. Patient is established with [facility] had x-ray of left knee but does not know the results and was given cortisone injection by [facility] without relief. She denies any recent injury but had a fall and right distal fibula fracture 2 1/2 months ago. [facility] Medical History History of COVID-19 COVID-19 vaccine series completed Osteoporosis Annual physical exam Hyperlipidemia Osteoarthritis Rheumatoid arthritis Thyroid nodule Chronic asthma Allergic rhinitis Surgical History History of surgery on arm Hx of thyroidectomy H/O: hysterectomy H/O colonoscopy Family History Mother No problems noted. Social History Household Members: Spouse and Children Housing: House Are you a primary pulmonary care nurse to a significant other at home: No Do you presently have visiting nurse or other home services: No Alcohol intake: never Patient Tobacco Use Status: Never used Tobacco e-Cigarette/Vaping Use: Never Used Second Hand Smoke Exposure: No service: No Current occupational status: employed Cognitive needs: No Hearing needs: No Vision needs: Yes Questionnaire PHQ-9 Over the last 2 weeks, how often have you been bothered by any of the following problems? 1. Little interest or pleasure in doing things: not at all 2. Feeling down, depressed, or hopeless: not at all 3. Trouble falling or staying asleep, or sleeping too much: not at all 4. Feeling tired or having little energy: not at all 5. Poor appetite or overeating: not at all 6. Feeling bad about yourself - or that you are a failure or have let yourself or your family down: not at all 7. Trouble concentrating on things, such as reading the newspaper or watching television: not at all 8. Moving or speaking so slowly that other people could have noticed. Or the opposite - being so fidgety or restless that you have been moving around a lot more than usual: not at all 9. Thoughts that you would be better off or of hurting yourself in some way: not at all Total score: 0 Depression Screening Interpretation: Negative Depression Screening Done: Yes 43766 - PHQ-9 Billing: Yes Source: Developed by Drs. Jaskaran Parikh, Stefany Fuchs, Gautam Leos and colleagues, with an educational bartolome from [employer]. Thrive Questionnaire Date Thrive assessed: 03/02/25 I am a: Patient What is your living situation today?: I choose not to answer this question Within the past 12 months, did the food you bought not last and you didn't have the money to get more?: I choose not to answer this question Within the past 12 months, did you worry whether your food would run out before you got money to buy more?: I choose not to answer this question Do you have trouble paying for medicines?: I choose not to answer this question Do you have trouble getting transportation to medical appointments?: I choose not to answer this question Do you have trouble paying your heating and electricity bill?: I choose not to answer this question Do you have trouble taking care of your child, family member or friend?: I choose not to answer this question Do you have trouble with day-to-day activities such as bathing, preparing meals, shopping, managing finances, etc.?: I choose not to answer this question Are you currently unemployed and looking for a job?: I choose not to answer this question Are you interested in more education?: I choose not to answer this question Please select the resources that you would like help with: None Currently or been in a relationship where the following occur: I choose not to answer THRIVE Score: 0 AUDIT C Alcohol Use Questionnaire (AUDIT-C) 1. How often do you have a drink containing alcohol?: Never 3. How often do you have six or more drinks on one occasion?: Never Total Score: 0 DAVID-7 AMB Questionnaire DAVID-7 Date DAVID - 7 assessed: 03/02/25 Feeling nervous, anxious, or on edge: 0 = Not at all Not being able to stop or control worryin = Not at all Worrying too much about different things: 0 = Not at all Trouble relaxin = Not at all Being so restless that it is hard to sit still: 0 = Not at all Becoming easily annoyed or irritable: 0 = Not at all Feeling afraid as if something awful might happen: 0 = Not at all Total DAVID-7 score (0-4 normal; 5-9 mild; 10-14 moderate; 15-21 severe): 0 Source: Developed by Drs. Jaskaran Parikh, Stefany FuchsGautam and colleagues, with an educational bartolome from [employer]. DAVID-7 Assessment Billing DAVID-7 Assessment Tool: DAVID-7 Assessment 93789 Review of Systems Const All systems reviewed & are unremarkable except as noted in HPI and below Eyes Reports no additional complaints ENT Reports no additional complaints Card Reports no additional complaints Resp Reports no additional complaints GI Reports no additional complaints Reports no additional complaints Physical exam (Primary Care) Vital Signs: Last Vital Signs Temp 98.0 F 03/02/25 09:17 Pulse 86 03/02/25 09:17 Resp 18 03/02/25 09:17 BP 118/68 03/02/25 09:17 Pulse Ox 97 03/02/25 09:17 Oxygen Delivery Method Room Air 03/02/25 09:17 BMI result Body Mass Index 20.3 Tobacco/Smoking Status: Tobacco use Status Tobacco use date assessed 03/02/25 03/02/25 09:35 Patient Tobacco Use Status Never used Tobacco 03/02/25 09:35 e-Cigarette/Vaping Use Never Used 03/02/25 09:17 PHQ-9: PHQ-9 Score PHQ-9: Total score 0 03/02/25 09:35 Depression Screening Interpretation: Negative Thrive Assessment: Date of Thrive Assessment Date Thrive assessed 03/02/25 03/02/25 09:35 Currently or been in a relationship where the following occur: I choose not to answer Const General: no acute distress HENMT Head: Yes normal to inspection Face and sinus: Yes normal facial exam Mouth: Normal oral and palatal mucosa present Throat: Yes posterior oropharynx normal Eyes General: appearance normal, both eyes and all related structures Neck Neck: Yes no lymphadenopathy and Yes supple Resp Effort & Inspection: normal respiratory effort Auscultation: clear to auscultation bilaterally Cardio Rhythm: regular rhythm Heart sounds: S1 normal heart sound present and S2 normal heart sound present GI Inspection: Yes normal to inspection Palpation (GI): Soft to palpation Percussion: Yes normal to percussion Auscultation: normal bowel sounds Extrem Other: reproducible tenderness medial aspect of L knee and soft tissue swelling, no erythema, warmth, FROM Coding Level of Care Code Est Pt Prev Care 40-64y(30873) Diagnoses Hypothyroid E03.9 Osteoporosis M81.0 Rheumatoid arthritis M06.9 Annual physical exam Z00.00 Hyperlipidemia E78.5 Left knee pain M25.562 Additional Codes DAVID-7 Assessment Billing - DAVID-7 Assessment Tool: DAVID-7 Assessment 79248 ([id number]) PHQ-9 - 63673 - PHQ-9 Billing: Yes ([id number]) Assessment & Plan Assessment & Plan (1) Hypothyroid: Code(s): E03.9 - Hypothyroidism, unspecified Category: Medical Plan: cont Levothyroxine (2) Osteoporosis: Comment: DEXA 04/14 T score -4.0 lumbar, -1.7 femoral neck, started alendronate February 10, f/u Arthritis tx, Code(s): M81.0 - Age-related osteoporosis without current pathological fracture Category: Medical Plan: cont Fosamax, calcium (3) Rheumatoid arthritis: Comment: of hands, on Humira and methotrexate Code(s): M06.9 - Rheumatoid arthritis, unspecified Category: Medical Plan: f/u rheumatology (4) Annual physical exam: Code(s): Z00.00 - Encounter for general adult medical examination without abnormal findings Category: Medical Plan: well balanced diet, regular exercise, pt is up to date with mammogram and colonoscopy (5) Hyperlipidemia: Code(s): E78.5 - Hyperlipidemia, unspecified Category: Medical Plan: Continue statin (6) Left knee pain: Code(s): M25.562 - Pain in left knee Category: Medical Plan: Meloxicam as prescribed for tendinitis PT was recommended but patient declined. She will follow-up with rheumatology Orders: Orders Comprehensive [place]. Panel Fast 1 Year E03.9 - Hypothyroidism, unspecified, E78.5 - Hyperlipidemia, unspecified, M06.9 - Rheumatoid arthritis, unspecified, Z00.00 - Encounter for general adult medical examination without abnormal findings Lipid Panel 1 Year E03.9 - Hypothyroidism, unspecified, E78.5 - Hyperlipidemia, unspecified, M06.9 - Rheumatoid arthritis, unspecified, Z00.00 - Encounter for general adult medical examination without abnormal findings Vitamin D 25-OH Total 1 Year E03.9 - Hypothyroidism, unspecified, E78.5 - Hyperlipidemia, unspecified, M06.9 - Rheumatoid arthritis, unspecified, Z00.00 - Encounter for general adult medical examination without abnormal findings Complete Blood Count Auto Diff 1 Year E03.9 - Hypothyroidism, unspecified, E78.5 - Hyperlipidemia, unspecified, M06.9 - Rheumatoid arthritis, unspecified, Z00.00 - Encounter for general adult medical examination without abnormal findings TSH reflex Free T4 1 Year E03.9 - Hypothyroidism, unspecified, E78.5 - Hyperlipidemia, unspecified, M06.9 - Rheumatoid arthritis, unspecified, Z00.00 - Encounter for general adult medical examination without abnormal findings Medications: New meloxicam 15 mg PO DAILY 10 tabs 0RF Changed From albuterol sulfate 90 mcg/actuation (ProAir HFA) 2 puffs inhalation Q4H PRN 8.5 grams 5RF shortness of breath or wheezing To albuterol sulfate 90 mcg/actuation 2 puffs inhalation Q4H PRN 8.5 grams 5RF shortness of breath or wheezing Refilled Advair HFA 230-21 mcg/actuation (fluticasone propion-salmeterol) 2 puffs inhalation BID 36 grams 3RF NS levothyroxine 88 mcg PO DAILY 90 tabs 3RF fluticasone propionate 50 mcg/actuation 2 sprays intranasal DAILY 48 mL 4RF
== END 2025-03-02 10:06 | disposition home or self-care (01) ==
LOC: HO.HMCC 08:54
PROVIDERS: PCP Internal Medicine; Visit Provider Internal Medicine
DX: E03.9 Hypothyroidism, unspecified (principal); M81.0 Age-related osteoporosis without current pathological fracture; M06.9 Rheumatoid arthritis, unspecified; Z00.00 Encounter for general adult medical examination without abnormal findings; E78.5 Hyperlipidemia, unspecified; M25.562 Pain in left knee

== ENCOUNTER → 2025-03-02 08:53 | Outpatient (BNVA) | payer OTHER, SELFPAY | PROVIDERS: PCP Internal Medicine; Visit Provider Internal Medicine | DX: Z00.00 Encounter for general adult medical examination without abnormal findings (principal); E03.9 Hypothyroidism, unspecified; M81.0 Age-related osteoporosis without current pathological fracture; M06.9 Rheumatoid arthritis, unspecified; E78.5 Hyperlipidemia, unspecified; M25.562 Pain in left knee; Z79.899 Other long term (current) drug therapy | CPT/HCPCS: 96127 ==

== ENCOUNTER 2025-08-14 11:22 | Outpatient (AMB) | payer BC, SELFPAY ==
[2025-08-14 11:27] VITALS: BP 126/70; PULSE 85; RESP 20; TEMP 36.7; O2SAT 98; BMI 20.6
--- NOTE | 2025-08-14 11:27 | MHC.PC.OV ---
Vital Signs 08/14/25 11:27 Height 5 ft 4 in Weight 120 lb BMI 20.6 BP 126/70 Blood Pressure Location Lt brachial Position Sitting Respiration 20 Pulse 85 Pulse Source Pulse Oximeter Temp 98.1 F Temp Source Oral Pulse Oximetry (%) 98 Oxygen Delivery Method Room Air Intake Visit Reasons: congestion, upper back pain Intake Note: Pt is here today for a sick visit. Pt c/o congestion R side ear congestion and pain upper back pain and chest pain, SOB and cough. Allergies aspirin Allergy (Intermediate, Verified 08/14/25 11:32) SOB ibuprofen (Advil) Allergy (Intermediate, Verified 08/14/25 11:32) SOB levofloxacin (Levaquin) Allergy (Unknown, Verified 08/14/25 11:32) pt does not remember Medication List - Last Reconciled 08/14/25 by Tiffanie Hernandez MD adalimumab (Humira(CF) Pen) inject one - 40 mg/0.4 mL pen every 2 weeks subcut adalimumab-ryvk mg subcut Advair HFA 230-21 mcg/actuation (fluticasone propion-salmeterol) 2 puffs inhalation BID NS albuterol sulfate 90 mcg/actuation 2 puffs inhalation Q4H PRN alendronate 70 mg PO PARSON ascorbate calcium (vitamin C) 1,000 mg PO DAILY cholecalciferol (vitamin D3) 25 mcg PO DAILY fluticasone propionate 50 mcg/actuation 2 sprays intranasal DAILY folic acid 1 mg PO DAILY levothyroxine 88 mcg PO DAILY methotrexate sodium 10 mg PO SA montelukast 10 mg PO DAILY rosuvastatin (Crestor) 10 mg PO DAILY Tobacco use date assessed: 08/14/25 Dental Screening Dental Screen Date: 03/02/25 HPI congestion, upper back pain HPI Details Pt c/o sinus congestion, postnasal drip, R ear pain, cough, midback pain, myalgia for 1 week. Patient complains of increased urinary frequency and occasionally discomfort after urination. She denies hematuria. [facility] Medical History (Updated 08/14/25 @ 12:36 by Tiffanei Hernandez MD) Sinusitis Microscopic hematuria History of COVID-19 COVID-19 vaccine series completed Osteoporosis Annual physical exam Hyperlipidemia Osteoarthritis Rheumatoid arthritis Thyroid nodule Chronic asthma Allergic rhinitis Surgical History History of surgery on arm Hx of thyroidectomy H/O: hysterectomy H/O colonoscopy Family History Mother No problems noted. Social History Household Members: Spouse and Children Housing: House Are you a primary care attendant to a significant other at home: No Do you presently have visiting nurse or other home services: No Alcohol intake: never Patient Tobacco Use Status: Never used Tobacco e-Cigarette/Vaping Use: Never Used Second Hand Smoke Exposure: No service: No Current occupational status: employed Cognitive needs: No Hearing needs: No Vision needs: Yes Questionnaire Thrive Questionnaire Date Thrive assessed: 03/02/25 I am a: Patient What is your living situation today?: I choose not to answer this question Within the past 12 months, did the food you bought not last and you didn't have the money to get more?: I choose not to answer this question Within the past 12 months, did you worry whether your food would run out before you got money to buy more?: I choose not to answer this question Do you have trouble paying for medicines?: I choose not to answer this question Do you have trouble getting transportation to medical appointments?: I choose not to answer this question Do you have trouble paying your heating and electricity bill?: I choose not to answer this question Do you have trouble taking care of your child, family member or friend?: I choose not to answer this question Do you have trouble with day-to-day activities such as bathing, preparing meals, shopping, managing finances, etc.?: I choose not to answer this question Are you currently unemployed and looking for a job?: I choose not to answer this question Are you interested in more education?: I choose not to answer this question Please select the resources that you would like help with: None Currently or been in a relationship where the following occur: I choose not to answer THRIVE Score: 0 AUDIT C Alcohol Use Questionnaire (AUDIT-C) 1. How often do you have a drink containing alcohol?: Never 3. How often do you have six or more drinks on one occasion?: Never Total Score: 0 DAVID-7 AMB Questionnaire DAVID-7 Date DAVID - 7 assessed: 03/02/25 Source: Developed by Drs. Jaskaran Parikh, Stefany Fuchs, Gautam Leos and colleagues, with an educational bartolome from [employer]. Review of Systems Const All systems reviewed & are unremarkable except as noted in HPI and below ENT Reports no additional complaints Card Reports no additional complaints Resp Reports no additional complaints GI Reports no additional complaints Reports no additional complaints Physical exam (Primary Care) Vital Signs: Last Vital Signs Temp 98.1 F 08/14/25 11:27 Pulse 85 08/14/25 11:27 Resp 20 08/14/25 11:27 BP 126/70 08/14/25 11:27 Pulse Ox 98 08/14/25 11:27 Oxygen Delivery Method Room Air 08/14/25 11:27 BMI result Body Mass Index 20.6 Tobacco/Smoking Status: Tobacco use Status Tobacco use date assessed 08/14/25 08/14/25 11:34 Patient Tobacco Use Status Never used Tobacco 08/14/25 11:34 e-Cigarette/Vaping Use Never Used 08/14/25 11:34 Thrive Assessment: Date of Thrive Assessment Date Thrive assessed 03/02/25 08/14/25 11:34 Currently or been in a relationship where the following occur: I choose not to answer Const General: no acute distress HENMT Head: Yes normal to inspection Ears: TM's normal bilaterally General nose exam: Abnormal mucous membranes and turbinates present erythematous Face and sinus: Yes normal facial exam and Yes sinus tenderness Throat: Yes postnasal drainage Eyes General: appearance normal, both eyes and all related structures Neck Neck: Yes no lymphadenopathy and Yes supple Resp Effort & Inspection: normal respiratory effort Auscultation: clear to auscultation bilaterally Cardio Rhythm: regular rhythm Heart sounds: S1 normal heart sound present and S2 normal heart sound present GI Inspection: Yes normal to inspection Palpation (GI): Soft to palpation Percussion: Yes normal to percussion Auscultation: normal bowel sounds Coding Level of Care Code Est Pt Level 4 (93516) Diagnoses Chronic asthma J45.909 Microscopic hematuria R31.29 Sinusitis J32.9 Assessment & Plan Assessment & Plan (1) Chronic asthma: Comment: asthma well controlled, uses inhalers Code(s): J45.909 - Unspecified asthma, uncomplicated Category: Medical Plan: cont inhalers (2) Microscopic hematuria: Comment: Negative workup by Urology Code(s): R31.29 - Other microscopic hematuria Category: Medical Plan: check renal US, try Estradiol vaginal cream (3) Sinusitis: Code(s): J32.9 - Chronic sinusitis, unspecified Category: Medical Plan: Z-Eliazar is prescribed and supportive care discussed with the patient Orders: Orders US renal BI Today R31.29 - Other microscopic hematuria AMB Urinalysis Automated Today Z13.9 - Encounter for screening, unspecified Medications: New azithromycin For 250 mg dose pack: take 500 mg today (day 1), then 250 mg for 4 days (days 2-5) PO 6 tabs 0RF estradiol 0.01%(0.1mg/gram) 1 g vaginal 3XW 42.5 grams 3RF
== END 2025-08-14 12:44 | disposition home or self-care (01) ==
LOC: HO.HMCC 11:24
PROVIDERS: PCP Internal Medicine; Visit Provider Internal Medicine
DX: J45.909 Unspecified asthma, uncomplicated (principal); R31.29 Other microscopic hematuria; J32.9 Chronic sinusitis, unspecified; Z13.9 Encounter for screening, unspecified

== ENCOUNTER → 2025-08-14 11:22 | Outpatient (BNVA) | payer BC, SELFPAY | PROVIDERS: PCP Internal Medicine; Visit Provider Internal Medicine | DX: R35.0 Frequency of micturition (principal); R31.29 Other microscopic hematuria; J45.909 Unspecified asthma, uncomplicated; J32.9 Chronic sinusitis, unspecified | CPT/HCPCS: 81003 ==

== ENCOUNTER 2025-10-24 11:40 | Outpatient (AMB) | payer BC, SELFPAY ==
[2025-10-24 11:51] VITALS: BP 120/66; PULSE 102; RESP 17; TEMP 36.8; O2SAT 96; BMI 20.6
--- NOTE | 2025-10-24 11:51 | MHC.PC.OV ---
Vital Signs 10/24/25 11:51 Height 5 ft 4 in Weight 120 lb BMI 20.6 BP 120/66 Blood Pressure Location Lt brachial Position Sitting Respiration 17 Pulse 102 H Pulse Source Pulse Oximeter Temp 98.2 F Temp Source Oral Pulse Oximetry (%) 96 Oxygen Delivery Method Room Air Intake Visit Reasons: Follow up after being seen in walk in still sick Intake Note: Pt is here today for a follow up visit after being seen in Urgent Care over a week ago. Pt was given Prednisone and Amoxicillin and she finished them both. Pt states that she is still having a cough congestion headaches. Pt was dx with sinus infection. Allergies aspirin Allergy (Intermediate, Verified 10/24/25 11:52) SOB ibuprofen (Advil) Allergy (Intermediate, Verified 10/24/25 11:52) SOB levofloxacin (Levaquin) Allergy (Unknown, Verified 10/24/25 11:52) pt does not remember Medication List - Last Reconciled 10/24/25 by Tiffanie Hernandez MD adalimumab (Humira(CF) Pen) inject one - 40 mg/0.4 mL pen every 2 weeks subcut adalimumab-ryvk mg subcut Advair HFA 230-21 mcg/actuation (fluticasone propion-salmeterol) 2 puffs inhalation BID NS albuterol sulfate 90 mcg/actuation 2 puffs inhalation Q4H PRN alendronate 70 mg PO PARSON ascorbate calcium (vitamin C) 1,000 mg PO DAILY cholecalciferol (vitamin D3) 25 mcg PO DAILY estradiol 0.01%(0.1mg/gram) 1 g vaginal 3XW fluticasone propionate 50 mcg/actuation 2 sprays intranasal DAILY folic acid 1 mg PO DAILY levothyroxine 88 mcg PO DAILY methotrexate sodium 10 mg PO SA montelukast 10 mg PO DAILY rosuvastatin (Crestor) 10 mg PO DAILY Tobacco use date assessed: 10/24/25 Dental Screening Dental Screen Date: 03/02/25 HPI Follow up after being seen in walk in still sick HPI Details Patient presents complaining of persistent sinus congestion, facial pain postnasal drip with greenish sputum after completing a course of Augmentin and prednisone. Patient denies wheezing shortness or breath fever chills pleurisy PFSH Medical History (Updated 10/24/25 @ 12:36 by Tiffanie Hernandez MD) Sinusitis Microscopic hematuria History of COVID-19 COVID-19 vaccine series completed Osteoporosis Annual physical exam Hyperlipidemia Osteoarthritis Rheumatoid arthritis Thyroid nodule Chronic asthma Allergic rhinitis Surgical History History of surgery on arm Hx of thyroidectomy H/O: hysterectomy H/O colonoscopy Family History Mother No problems noted. Social History Household Members: Spouse and Children Housing: House Are you a primary day care home provider to a significant other at home: No Do you presently have visiting nurse or other home services: No Alcohol intake: never Patient Tobacco Use Status: Never used Tobacco e-Cigarette/Vaping Use: Never Used Second Hand Smoke Exposure: No service: No Current occupational status: employed Cognitive needs: No Hearing needs: No Vision needs: Yes Questionnaire Thrive Questionnaire Date Thrive assessed: 03/02/25 I am a: Patient What is your living situation today?: I choose not to answer this question Within the past 12 months, did the food you bought not last and you didn't have the money to get more?: I choose not to answer this question Within the past 12 months, did you worry whether your food would run out before you got money to buy more?: I choose not to answer this question Do you have trouble paying for medicines?: I choose not to answer this question Do you have trouble getting transportation to medical appointments?: I choose not to answer this question Do you have trouble paying your heating and electricity bill?: I choose not to answer this question Do you have trouble taking care of your child, family member or friend?: I choose not to answer this question Do you have trouble with day-to-day activities such as bathing, preparing meals, shopping, managing finances, etc.?: I choose not to answer this question Are you currently unemployed and looking for a job?: I choose not to answer this question Are you interested in more education?: I choose not to answer this question Currently or been in a relationship where the following occur: I choose not to answer THRIVE Score: 0 DAVID-7 AMB Questionnaire DAVID-7 Date DAVID - 7 assessed: 03/02/25 Source: Developed by Stefany Quevedo B.W. Jef, Gautam Leos and colleagues, with an educational bartolome from [employer]. Review of Systems Const All systems reviewed & are unremarkable except as noted in HPI and below Eyes Reports no additional complaints ENT Reports no additional complaints Card Reports no additional complaints Resp Reports no additional complaints GI Reports no additional complaints Physical exam (Primary Care) Vital Signs: Last Vital Signs Temp 98.2 F 10/24/25 11:51 Pulse 102 H 10/24/25 11:51 Resp 17 10/24/25 11:51 BP 120/66 10/24/25 11:51 Pulse Ox 96 10/24/25 11:51 Oxygen Delivery Method Room Air 10/24/25 11:51 BMI result Body Mass Index 20.6 Tobacco/Smoking Status: Tobacco use Status Tobacco use date assessed 10/24/25 10/24/25 11:53 Patient Tobacco Use Status Never used Tobacco 10/24/25 11:51 e-Cigarette/Vaping Use Never Used 10/24/25 11:51 Thrive Assessment: Date of Thrive Assessment Date Thrive assessed 03/02/25 10/24/25 11:51 Currently or been in a relationship where the following occur: I choose not to answer Const General: no acute distress HENMT Head: Yes normal to inspection Ears: TM's normal bilaterally General nose exam: Abnormal mucous membranes and turbinates present erythematous Face and sinus: Yes sinus tenderness Eyes General: appearance normal, both eyes and all related structures Neck Neck: Yes no lymphadenopathy and Yes supple Resp Effort & Inspection: normal respiratory effort Auscultation: clear to auscultation bilaterally Cardio Rhythm: regular rhythm Heart sounds: S1 normal heart sound present and S2 normal heart sound present Coding Level of Care Code Est Pt Level 4 (49538) Diagnoses Chronic asthma J45.909 Sinusitis J32.9 Assessment & Plan Assessment & Plan (1) Chronic asthma: Comment: asthma well controlled, uses inhalers Code(s): J45.909 - Unspecified asthma, uncomplicated Category: Medical Plan: Continue Advair and albuterol PRN (2) Sinusitis: Code(s): J32.9 - Chronic sinusitis, unspecified Category: Medical Plan: Z-Eliazar and Tessalon Perles as prescribed and supportive care discussed with the patient Medications: New benzonatate 100 mg PO TID 30 caps 0RF azithromycin For 250 mg dose pack: take 500 mg today (day 1), then 250 mg for 4 days (days 2-5) PO 6 tabs 0RF
--- OUTSIDE RECORDS SUMMARY | 2025-10-24 15:43 | XMS_ITS | Clinical Summary ---
Author Organization [facility] Address [address] [place] [phone] Phone Care Team Providers Care Shoe Stainer Name Role Phone Unavailable Primary Care Provider Unavailabl e Allergies Active Allergy Reactions Criticality Noted Date Comments Aspirin Other (See Comments) 12/05/2008 Bronchospasm or Wheezing Nsaids (Non-Steroidal Anti-Inflammatory Drug) Other (See Comments) 12/05/2008 Bronchospasm or Wheezing Social History Tobacco Use Types Packs/Day Years Used Date Smoking Tobacco: Never Assessed Education Answer Date Recorded Are you interested in more education? Not on woody e 03/08/2023 Are you concerned about learning? Not on file 03/08/2023 No 03/08/2023 No 03/08/2023 Digital Access Answer Date Recorded No 03/22/2023 No 03/22/2023 No 03/22/2023 Reliable internet access at home? Not on file 03/22/2023 Device with a working camera? Not on file Comments Unknown Sex and Gender Information Value Date Recorded Sex Assigned at Not on file Legal Sex Female 5:01 PM EST Gender Identity Not on file Sexual Orientation Not on file Plan of Treatment Health Maintenance Due Date Last Done Comments Adult Td,Tdap Booster 1962 LIPID PANEL 1962 DEPRESSION SCREENING 1974 SMOKING Hx and SMOKELESS TOBACCO SCREENING 1975 HEPATITIS C SCREENING 1980 HIV ONE-TIME SCREENING (18-6 5 YEARS) 1980 PAP SMEAR 1983 MAMMOGRAM 2002 COLOGUARD 2007 COLONOSCOPY 2007 COLORECTAL CANCER SCREENING 2007 FIT TEST 2007 FOBT 2007 SIGMOIDOSCOPY 2007 VIRTUAL COLONOSCOPY 2007 PNEUMOCOCCAL VACCINES (50+ years) (1 of 1 - PCV) 2012 ZOSTER VACCINES (1 of 2) 2012 INFLUENZA VACCINE (#1) 2025 0, 10/14/2018 COVID-19 VACCINE (2 - 2024-2 6 season) 2025 01/19/2021 RSV VACCINE (1 - 1-dose 75+ series) 2037 HEPATITIS A VACCINES Aged Out No long er eligible based on patient's age to complete this topic HIB VACCINES Aged Out No longer eligi ble based on patient's age to complete this topic MENINGOCOCCAL VACCINES (ACWY) Aged Out No longer eligible based on patient's age to complete this topic MENINGOCOCCAL VACCINES (B) Aged Out N o longer eligible based on patient's age to complete this topic Medical Devices Not on file Additional Source Comments The information contained in this document represents components of the legal health record. It is not the complete legal health record.[facility]
== END 2025-10-24 12:37 | disposition home or self-care (01) ==
LOC: HO.HMCC 11:41
PROVIDERS: PCP Internal Medicine; Visit Provider Internal Medicine
DX: J45.909 Unspecified asthma, uncomplicated (principal); J32.9 Chronic sinusitis, unspecified